=== PATIENT | female | born 1960 | race Caucasian/White ===

== ENCOUNTER 2017-06-28 12:42 | Inpatient (IN) | payer MEDICARE, MEDICAID ==
[2017-06-28 13:47] LABS: ABS Basophils 0.2 10^3/ul (0-0.2); ABS Eosinophils 0.1 10^3/ul (0-0.6); ABS Lymphocytes 1.9 10^3/ul (1.0-4.8); ABS Neutrophils 12.7 10^3/ul (1.5-7.7); ABS Nucleated RBC 0 10^3/ul; Eosinophil % 0.5 % (0-6); Hematocrit 33 % (35-47); Hemoglobin 10.6 g/dl (12.0-16.0); Lymphocyte % 11.9 % (25-47); Mean Corpuscular HGB Conc 33 g/dl (31-36); Mean Corpuscular Hemoglobin 25 pg (27-31); Mean Corpuscular Volume 78 fL (80-97); Mean Platelet Volume 6.8 um3 (7.4-10.4); Nucleated Red Blood Cells % 0; Platelet Count 591 10^3/ul (150-450); Red Blood Count 4.18 10^6/ul (4.0-5.4); Red Cell Distribution Width 16 % (10.5-15); White Blood Count 15.9 10^3/ul (3.5-10.8)
[2017-06-28 13:57] LABS: INR 1.02 (0.77-1.02)
[2017-06-28 14:09] LABS: EGFR Non-African American 68.3 (>60)
[2017-06-28] MEDS ORDERED: Pantoprazole IV* 40 MG IV ONE (14:28)
--- NOTE | 2017-06-28 14:30 | RAD ---
INDICATION: Intermittent low-grade fever. Vomiting since last night. History of bilateral mastectomy. Former tobacco use. Question COPD. COMPARISON: August 05, [address] TECHNIQUE: Dual energy PA and routine lateral views of the chest were obtained. REPORT: Elevated lung volumes and rarefaction of the interstitial markings. RIGHT suprahilar opacity with suggestion of air bronchograms measuring up to 3.0 x 3.2 cm which may represent a round pneumonia or neoplastic lesion. Negative for pleural effusion or pneumothorax. Negative for cardiomegaly. Unremarkable central pulmonary vasculature. Negative for free air beneath the diaphragm. RIGHT axillary surgical clips. Healed fracture of the RIGHT eighth rib laterally. Negative for suspicious osseous lesions. IMPRESSION: 1. RIGHT suprahilar opacity with suggestion of air bronchograms measuring up to 3.0 x 3.2 cm which may represent a round pneumonia or neoplastic lesion. Correlate with clinical assessment and consider either contrast-enhanced CT of the chest at this time for further characterization or following therapy for pneumonia to assess for resolution. 2. Stigmata of chronic obstructive lung disease and emphysema.
[2017-06-28] MEDS ORDERED: cefTRIAXone(*) 1 GM in NS 0.9% 50 ML* 50 ML IVPB ONE (14:42)
[2017-06-28] MEDS ORDERED: Azithromycin IV(*) 500 MG in NS 0.9% 250 ML* 250 ML IVPB ONE (14:42)
[2017-06-28] MEDS ORDERED: Iohexol 350* (CONTRAST) 500 ML MDV IV ONE (14:50)
[2017-06-28] MEDS ORDERED: Pantoprazole IV* 80 MG in NS 0.9% 250 ML* 250 ML IV SCH (15:00)
[2017-06-28] MEDS ORDERED: Albuterol/Ipratropium NEB.SOL* Albuterol 2.5 MG/Ipratropium 0.5 MG 3 ML INH PRN (15:01)
[2017-06-28] MEDS ORDERED: Albuterol HFA INHALER* 8 gm MDI INH PRN (15:05)
[2017-06-28] MEDS ORDERED: NS 0.9% 1000 ML* 1,000 ML IV SCH (15:15)
--- NOTE | 2017-06-28 15:52 | RAD ---
INDICATION: RIGHT lung mass. Hemoptysis. History of breast cancer with double mastectomy. COMPARISON: Chest radiograph of the same date. TECHNIQUE: Multidetector CT images were obtained from the lung apices to the upper abdomen with 61 mL Omnipaque 350 IV contrast. Pulmonary angiogram protocol. Multiplanar reformation including with maximum intensity projection. REPORT: 3.3 x 2.6 cm RIGHT suprahilar RIGHT upper lobe mass encases the RIGHT upper lobe pulmonary arteries, veins, and airways with significant resulting RIGHT upper lobe airway stenosis airway. The mass extends into the RIGHT hilum and mediastinum with resulting approximate 70% compression of the RIGHT mainstem bronchus and bronchus intermedius. Mild postobstructive pneumonitis or patchy direct tumor extension peripheral to the dominant mass limited to the RIGHT upper lobe. The LEFT lung is clear. Negative for pleural effusions. Negative for pneumothorax. 2.3 cm short axis RIGHT paratracheal lymph node. 3.0 cm short axis subcarinal lymph node. 1.3 cm short axis RIGHT hilar lymph nodes. Negative for cardiomegaly. Small pericardial effusion with nodular contour anteriorly suspicious for potential inflammatory or malignant effusion. No filling defects are identified from the main to the subsegmental pulmonary arteries to indicate presence of a pulmonary embolism. Unremarkable Limited images through the upper abdomen. Post bilateral mastectomy. RIGHT axillary surgical clips noted. Negative for suspicious thoracic osseous lesions. IMPRESSION: 1. RIGHT upper lobe mass extending to the hilum and mediastinum as described. Consider primary bronchogenic carcinoma as well as metastasis given history of breast cancer. 2. Mediastinal and RIGHT hilar lymphadenopathy. 3. Small pericardial effusion with nodular contour anteriorly suspicious for potential inflammatory or malignant effusion. 4. Negative for pulmonary embolism.
[2017-06-28] MEDS ORDERED: fentaNYL* 50 MCG/ML 2 ML VIAL (100 MCG VIAL) ONE (16:09)
[2017-06-28] MEDS ORDERED: Midazolam* 1 MG/ML 10 ML VIAL (10 MG) ONE (16:09)
[2017-06-28] MEDS ORDERED: Pantoprazole IV* 80 MG in NS 0.9% 250 ML* 250 ML IVPB SCH (16:30)
[2017-06-28] MEDS ORDERED: Azithromycin IV(*) 500 MG in D5W 250 ML BAG* 250 ML IVPB SCH (17:00)
[2017-06-28] MEDS: Azithromycin IV(*) 500 MG in NS 0.9% 250 ML* 250 ML IVPB SCH (17:10)
--- NOTE | 2017-06-28 17:34 | ED ---
Meka Shin Elizabeth, scribed for Ezio Marr MD on 06/28/17 at 1300 . Abdominal Pain/Female - HPI Summary HPI Summary: This patient is a 56 year old F presenting to [facility] with a chief complaint of abd pain since this morning. Symptoms aggravated by nothing. Symptoms alleviated by nothing. Patient reports sinus congestion, shortness of breath on exertion, intermittent fevers, weight loss, cough, hematemesis with bright red blood clots, a feeling like something is stuck in my throat this morning. The patient notes that the symptoms are worse in the morning. Patient denies hx of stomach ulcers. The patient has previously been diagnosed with COPD and has been prescribed albuterol and Flovent. The patient denies taking these medications because she says they give her headaches. The patient reports taking Ibuprofen and ASA regularly. - History of Current Complaint Stated Complaint: VOMITING BLOOD Time Seen by Provider: 06/28/17 12:48 Hx Obtained From: Patient Onset/Duration: Sudden Onset, Still Present Severity Initially: Mild Severity Currently: Mild Location: Epigastric Radiates: No Aggravating Factor(s): Nothing Alleviating Factor(s): Nothing Associated Signs and Symptoms: Positive: Fever - intermittent, Cough, Vomiting - hematemesis, Other: - weight loss, shortness of breath on exertion Allergies/Adverse Reactions: Allergies Allergy/AdvReac Type Severity Reaction Status Date / Time No Known Allergies Allergy Verified 06/28/17 14:48 Home Medications: Home Medications ALPRAZolam TAB* [Xanax TAB*] 1 mg PO TID PRN 06/28/17 [History Confirmed ] Albuterol HFA INHALER* [Ventolin HFA Inhaler*] 1 - 2 puff INH Q4H PRN 06/28/17 [ History Confirmed 06/28/17] Cetirizine* [ZyrTEC 10 MG TAB*] 10 mg PO DAILY 06/28/17 [History Confirmed 06/28] Cholecalciferol TAB* [Vitamin D TAB*] 5,000 unit PO DAILY 06/28/17 [History Confirmed 06/28/17] Escitalopram (NF) [Lexapro 20 mg (NF)] 20 mg PO DAILY 06/28/17 [History Confirmed 06/28/17] Fluticasone DISKUS 100 MCG(NF) [Flovent Diskus 100 MCG(NF)] 1 puff INH BID 06/28 [History Confirmed 06/28/17] Fluticasone NASAL SPRAY 50MCG* [Flonase NASAL SPRAY 50MCG*] 2 spray BOTH NARES DAILY 06/28/17 [History Confirmed 06/28/17] Ibuprofen TAB* [Advil TAB*] 600 mg PO BID PRN 06/28/17 [History Confirmed ] Omeprazole CAP* [Prilosec CAP* 20 MG] 40 mg PO DAILY 06/28/17 [History Confirmed 06/28/17] Umeclidin/Vilant 62.5 MDI(NF) [ANORO 62.5/25 Ellipta DEVICE (NF)] 1 inh INH DAILY 06/28/17 [History Confirmed 06/28/17] Vitamin B Complex TAB* [B Complex-50*] 1 tab PO DAILY 06/28/17 [History Confirmed 06/28/17] PMH/Surg Hx/FS Hx/Imm Hx Endocrine/Hematology History: Denies: Hx Diabetes Respiratory History: Reports: Hx Chronic Obstructive Pulmonary Disease (COPD) Opthamlomology History: Denies: Hx Legally Blind EENT History: Denies: Hx Deafness - Cancer History Cancer Type, Location and Year: Breast cancer, 2004 - Surgical History Surgery Procedure, Year, and Place: bilateral mastectomy, 2004 - Family History Known Family History: Negative: Diabetes Review of Systems Negative: Fever, Chills Negative: Erythema ENT: Other - sinus congestion Negative: Sore Throat Negative: Chest Pain Positive: Shortness Of Breath, Cough Positive: Abdominal Pain - hematemesis with bright red blood and clots, Vomiting - he. Negative: Nausea Negative: dysuria, hematuria Negative: Myalgia, Edema Negative: Rash Neurological: Other - NEGATIVE DIZZINESS All Other Systems Reviewed And Are Negative: Yes Physical Exam - Summary Physical Exam Summary: Constitutional: Well-developed, thin appearing, Alert. (-) Distressed Skin: Warm, Dry HENT: Normocephalic; Atraumatic Eyes: Conjunctiva normal Neck: Musculoskeletal ROM normal neck. (-) JVD, (-) Stridor, (-) Tracheal deviation Cardio: Rhythm regular, rate normal, Heart sounds normal; Intact distal pulses; The pedal pulses are 2+ and symmetric. Radial pulses are 2+ and symmetric. (-) Murmur Pulmonary/Chest wall: Effort normal. (-) Respiratory distress, (-) Wheezes, (-) Rales Abd: Soft, Mild epigastric tenderness, (-) Distension, (-) Guarding, (-) Rebound Musculoskeletal: (-) Edema Lymph: (-) Cervical adenopathy Neuro: Alert, Oriented x3 Psych: Mood and affect Normal Triage Information Reviewed: Yes Vital Signs On Initial Exam: Initial Vitals Temp 37.2 C 06/28/17 12:45 Vital Signs Reviewed: Yes Diagnostics - Vital Signs Vital Signs Temp Pulse Resp BP Pulse Ox 06/28/17 13:44 96 151/98 97 06/28/17 13:14 98 136/86 98 06/28/17 13:12 36.9 C 104 20 138/83 98 06/28/17 12:45 37.2 C - Laboratory Lab Results: Lab Results 06/28/17 06/28/17 06/28/17 Range/Units 13:37 13:37 13:37 WBC 15.9 H (3.5-10.8) 10^3/ul RBC 4.18 (4.0-5.4) 10^6/ul Hgb 10.6 L (12.0-16.0) g/dl Hct 33 L (35-47) % MCV 78 L (80-97) fL MCH 25 L (27-31) pg MCHC 33 (31-36) g/dl RDW 16 H (10.5-15) % Plt Count 591 H (150-450) 10^3/ul MPV 6.8 L (7.4-10.4) um3 Neut % (Auto) 80.3 (38-83) % Lymph % (Auto) 11.9 L (25-47) % [place] % (Auto) 6.3 (0-7) % Eos % (Auto) 0.5 (0-6) % Baso % (Auto) 1.0 (0-2) % Absolute Neuts (auto) 12.7 H (1.5-7.7) 10^3/ul Absolute Lymphs (auto) 1.9 (1.0-4.8) 10^3/ul Absolute Monos (auto) 1.0 H (0-0.8) 10^3/ul Absolute Eos (auto) 0.1 (0-0.6) 10^3/ul Absolute Basos (auto) 0.2 (0-0.2) 10^3/ul Absolute Nucleated RBC 0 10^3/ul Nucleated RBC % 0 INR (Anticoag Therapy) 1.02 (0.77-1.02) APTT 31.6 (26.0-36.3) seconds Sodium 134 L (139-145) mmol/L Potassium 3.9 (3.5-5.0) mmol/L Chloride 100 L (101-111) mmol/L Carbon Dioxide 26 (22-32) mmol/L Anion Gap 8 (2-11) mmol/L BUN 12 (6-24) mg/dL Creatinine 0.86 (0.51-0.95) mg/dL Est GFR ( Amer) 87.8 (>60) Est GFR (Non-Af Amer) 68.3 (>60) BUN/Creatinine Ratio 14.0 (8-20) Glucose 99 (70-100) mg/dL Calcium 10.0 (8.6-10.3) mg/dL Total Bilirubin 0.50 (0.2-1.0) mg/dL AST 18 (13-39) U/L ALT 28 (7-52) U/L Alkaline Phosphatase 352 H (34-104) U/L Total Protein 7.9 (6.4-8.9) g/dL Albumin 3.4 (3.2-5.2) g/dL Globulin 4.5 H (2-4) g/dL Albumin/Globulin Ratio 0.8 L (1-3) Blood Type Antibody Screen 06/28/17 Range/Units 13:37 WBC (3.5-10.8) 10^3/ul RBC (4.0-5.4) 10^6/ul Hgb (12.0-16.0) g/dl Hct (35-47) % MCV (80-97) fL MCH (27-31) pg MCHC (31-36) g/dl RDW (10.5-15) % Plt Count (150-450) 10^3/ul MPV (7.4-10.4) um3 Neut % (Auto) (38-83) % Lymph % (Auto) (25-47) % [place] % (Auto) (0-7) % Eos % (Auto) (0-6) % Baso % (Auto) (0-2) % Absolute Neuts (auto) (1.5-7.7) 10^3/ul Absolute Lymphs (auto) (1.0-4.8) 10^3/ul Absolute Monos (auto) (0-0.8) 10^3/ul Absolute Eos (auto) (0-0.6) 10^3/ul Absolute Basos (auto) (0-0.2) 10^3/ul Absolute Nucleated RBC 10^3/ul Nucleated RBC % INR (Anticoag Therapy) (0.77-1.02) APTT (26.0-36.3) seconds Sodium (139-145) mmol/L Potassium (3.5-5.0) mmol/L Chloride (101-111) mmol/L Carbon Dioxide (22-32) mmol/L Anion Gap (2-11) mmol/L BUN (6-24) mg/dL Creatinine (0.51-0.95) mg/dL Est GFR ( Amer) (>60) Est GFR (Non-Af Amer) (>60) BUN/Creatinine Ratio (8-20) Glucose (70-100) mg/dL Calcium (8.6-10.3) mg/dL Total Bilirubin (0.2-1.0) mg/dL AST (13-39) U/L ALT (7-52) U/L Alkaline Phosphatase (34-104) U/L Total Protein (6.4-8.9) g/dL Albumin (3.2-5.2) g/dL Globulin (2-4) g/dL Albumin/Globulin Ratio (1-3) Blood Type A Positive Antibody Screen Negative Result Diagrams: 06/28/17 13:37 06/28/17 13:37 Lab Statement: Any lab studies that have been ordered have been reviewed, and results considered in the medical decision making process. - Radiology CXR Xray Interpretation: Positive (See Comments) - IMPRESSION: 1. RIGHT suprahilar opacity with suggestion of air bronchograms measuring up to 3.0 x 3.2 cm which may represent a round pneumonia or neoplastic lesion. Correlate with clinical assessment and consider either contrast-enhanced CT of the chest at this time for further characterization or following therapy for pneumonia to assess for resolution. 2. Stigmata of chronic obstructive lung disease and emphysema. Dr. Marr has reviewed this report. Radiology Interpretation Completed By: Radiologist - EKG 13:07 Cardiac Rate: Tachycardia - at 101 BPM EKG Rhythm: Sinus Tachycardia EKG Interpretation: no STEMI Re-Evaluation - Re-Evaluation 1st re-eval Re-Evaluation Time: 14:39 Change: Unchanged Comment: Discussed course of treatment with patient. Abdominal Pain Fem Course/Dx - Course Course Of Treatment: An EKG reveals sinus tachycardia at 101 BPM and no STEMI. CXR reveals, per radiologist, 1. RIGHT suprahilar opacity with suggestion of air bronchograms measuring up to 3.0 x 3.2 cm which may represent a round pneumonia or neoplastic lesion. Correlate with clinical assessment and consider either contrast-enhanced CT of the chest at this time for further characterization or following therapy for pneumonia to assess for resolution. 2. Stigmata of chronic obstructive lung disease and emphysema. ED physician has reviewed this radiology reportand discussed the results with the radiologist. Test results with no significant abnormalities. In the ED course the patient was given Protonix, Rocephin, Zithromax. We discussed patient care with Dr. Kate , check writing machine operator, and she recommended performing an endoscopy and admitting as inpatient. The possibility for pulmonary etiology was relayed to Dr. Kate. She understands and still plans to perform the endoscopy. Patient will be admitted to [facility]. The patient is agreeable with this plan. - Diagnoses Provider Diagnoses: Hematemesis, Lung mass - Provider Notifications Discussed Care Of Patient With: Dr. Kate Time Discussed With Above Provider: 14:30 Instructed by Provider To: Other - At 14:[address] Kate, check writing machine operator, advises performing an endoscopy on the patient and admitting her to [facility]. At 14:[address] Kate and made her aware of the possibility of pulmonary etiology. She understands this and still plans to perform the endoscopy. Discharge - Sign-Out/Discharge Documenting (check all that apply): Discharge/Admit/Transfer - Discharge Plan Condition: Fair Disposition: ADMITTED TO [facility] - Billing Disposition and Condition Condition: FAIR Disposition: HOSP-[facility] The documentation as recorded by the Meka fuentes Elizabeth accurately reflects the service I personally performed and the decisions made by , Ezio Marr MD.
[2017-06-28] MEDS: Acetaminophen TAB* 325 MG PO PRN (21:45)
[2017-06-28 22:22] LABS: Hematocrit 30 % (35-47); Hemoglobin 9.8 g/dl (12.0-16.0)
--- NOTE | 2017-06-28 22:33 | HP ---
CC: DANELLE Samuels * HISTORY AND PHYSICAL: DATE OF ADMISSION: 06/28/17 PRIMARY CARE PROVIDER: The patient actually forgot the name, but the provider is from [facility] in [place], [place]. I believe the name is Carrie Kasper. CHIEF COMPLAINT: Vomiting blood. HISTORY OF PRESENT ILLNESS: Jordana Hurst is a 56-year-old female with history of COPD and breast cancer. The patient stated that for the past month and a half, she has been having coughing, and shortness of breath. She went to see her primary care provider and was prescribed "inhalers." She admitted that she was supposed to take Flovent and Anoro and she thinks that the inhalers causing her to have frontal headaches. She stated that she has been feeling sinus pressure from her headaches for the past several weeks. She has been having also "coughing spells." Today, she had another coughing spell at the end of which she vomited. She vomited clots of blood with vomitus and pieces of food in it. She stated that it was approximately 100 to 200 mL of total and she has never had vomited like that before. She denies coughing up blood once again when she vomited and was at the end of "a coughing spell." She has been having no fevers, but bifrontal headaches and sinus congestion for quite some time. Of note, she stopped her inhalers 2 days ago thinking that they are causing her to feel worse especially with headaches. She is going to be admitted with diagnosis of hematemesis versus hemoptysis. Her chest x-ray also showed questionable right lung infiltrate versus mass for which further evaluation with CT angiogram was going to be obtained. PAST MEDICAL HISTORY: 1. COPD. 2. History of anxiety and depression. 3. History of status post bilateral mastectomy for right-sided breast cancer which followed chemo and radiation 13 years ago. CURRENT MEDICATIONS: Include: 1. Ibuprofen 600 mg b.i.d. p.r.n. 2. Lexapro 20 mg daily. 3. Xanax 1 mg 3 times a day p.r.n. 4. Vitamin B complex 1 tablet daily. 5. Vitamin D 5000 units daily. 6. Zyrtec 10 mg daily. 7. Anoro Ellipta 62.5/25 one inhalation daily. 8. Omeprazole 40 mg daily. 9. Tikosyn nasal spray 50 mcg 2 sprays both nostrils daily. 10. Flovent Diskus 100 mcg 1 puff b.i.d. 11. Albuterol inhaler on a p.r.n. basis. ALLERGIES: The patient stated "TWILIGHT SEDATION" makes her feel "funny," and CODEINE makes her feel "sad." FAMILY HISTORY: Positive for mother with history of brain tumor, who in her 50s. SOCIAL HISTORY: The patient denies any alcohol or drug use. She has been a smoker for over 20-pack years and she quit 2 months ago. As her surrogate, she mentions Jennifer Burrows, her sister. REVIEW OF SYSTEMS: Please see history of present illness. All the remaining review of systems was completed and they were otherwise negative. PHYSICAL EXAMINATION GENERAL: The patient is a very pleasant 56-year-old female who is in no acute distress. Alert, awake and oriented x3, rather a poor historian. VITAL SIGNS: Blood pressure 151/98, heart rate of 96 and regular, respiratory rate 20, oxygen saturation 97% on room air, temperature is 99.0. HEENT: Head: Atraumatic, normocephalic. Eyes: Pupils are equal, reactive to light and accommodation. Oropharynx clear. Mucosa moist. NECK: Supple. No JVD. No bruits bilaterally. RESPIRATORY: Rhonchi at bilateral bases and right middle lung. CARDIOVASCULAR: Regular rate and rhythm. No murmur. ABDOMEN: Soft, nontender. Bowel sounds are present in all 4 quadrants. EXTREMITIES: There is no edema. Pulses are +2 bilaterally. No clubbing or cyanosis. NEURO EVALUATION: Speech is clear. Cranial nerves II through XII grossly intact. Motor strength is 5/5 bilaterally. SKIN: On evaluation of the skin, no ecchymotic areas or rashes noted. DIAGNOSTIC STUDIES/LAB DATA: Sodium of 138, potassium 3.9, chloride 100, carbon dioxide 26, BUN was 12, creatinine 0.86. Liver function tests were unremarkable apart from alkaline phosphatase of 352. White blood cell count of 15.9, hemoglobin of 10.6, hematocrit of 33, MCV of 78, platelets of 591. INR was 1.02, PTT of 31.6. Portable chest x-ray, impression: "Right suprahilar opacity with suggestion of air bronchograms measuring up to 3.2 cm, which may represent a round pneumonia or neoplastic lesion. Correlate with clinical assessment and consider a contrast enhanced CT of the chest at the time for further characterization following therapy for pneumonia to assess for resolution." The patient's EKG showed sinus tachycardia with heart rate of 101 beats per minute with no significant ST changes. ASSESSMENT AND PLAN: 1. Hemoptysis versus hematemesis. The patient stated that she has been having coughing spells for quite some time and today. The coughs had been nonproductive and today at the end of her coughing spells, she vomited blood mixed with gastric contents. At this point, it is difficult to distinguish if the patient in fact had hematemesis or hemoptysis. Either way, the patient was evaluated first by the gastroenterology department and the patient is going to have an EGD performed today. She is going to be placed on Protonix intravenously. She does have history of using ibuprofen for her headaches and in the past several weeks. 2. In regards to patient's right-sided lung nodule, I will order CT angiogram of the chest as the patient has been coughing, had been also short of breath, and had possible hemoptysis. For the time being, she is going to be treated empirically for pneumonia with ceftriaxone and azithromycin. She has leukocytosis also. Sputum cultures are going to be obtained. 3. The patient has microcytic anemia, which is likely due to hematemesis as mentioned above. For the time being, we will follow up with H and H tonight and then in the morning. This anemia is likely due to acute hemorrhage from hematemesis. 4. The patient's chronic obstructive pulmonary disease does not appear to be exacerbation. The patient is going to be placed on albuterol inhaler and DuoNeb. 5. For anxiety and depression, Lexapro and Xanax is going to be continued. 6. For DVT prophylaxis, the patient is going to be placed on sequential compression devices and anticoagulation is not going to be started due to her hematemesis. I will place the patient on SCDs. 7. The patient's code status is full and her surrogate is her sister as mentioned above. 8. The patient's alkaline phosphatase is significantly elevated. At this point , I am going to obtain alkaline phosphatase, isoenzyme to rule out possibility of bone isoenzyme being elevated. It does not appear that the patient has had complaint of any liver issues in the past. Unfortunately, I do not have her prior lab work in regards to LFTs. TIME SPENT: Approximately 70 minutes were spent on admission of this patient, more than half of the time was spent in [id number] with the patient during the interview and physical exam. [id number]/[facility] #: [id number] JEAN
--- NOTE | 2017-06-29 01:49 | CONS ---
AMENDED REPORT NOW INCLUDES DATE OF CONSULT - ESIGNED BEFORE ADJUSTMENT CC: Dr. Marr GASTROENTEROLOGY CONSULTATION: DATE OF CONSULT: 06/28/17 REFERRING PHYSICIAN: Dr. Marr. HISTORY OF PRESENT ILLNESS: Thank you for asking me to see Ms. Hurst. As you know, she is a 56-year-old female with a personal history of breast cancer and a history of COPD, who presented to the emergency room today after having an episode of hematemesis this morning, which she states was bright red blood, which filled half a glass. She also apparently had an episode of vomiting last night after soup and there were a few streaks of blood in that vomitus. The patient has had no further hematemesis since her arrival in the emergency room. Her hematocrit on admission is 33 with an MCV of 78. The patient did undergo a chest CT, which did reveal a mass in the right upper lobe encasing the right upper lobe pulmonary arteries, veins, and airways. The patient states this was clearly not hemoptysis. She had stopped all her COPD medications at home. Has no complaints of heartburn, dysphagia, or abdominal pain. She has had no melena. PAST MEDICAL HISTORY: Significant for breast cancer, COPD, and anxiety. MEDICATIONS: At home, include: 1. Xanax. 2. Lexapro. ALLERGIES: No known drug allergies. FAMILY HISTORY: Noncontributory. SOCIAL HISTORY: The patient lives at home. There is no alcohol abuse. REVIEW OF SYSTEMS: A 10-point review of systems is performed and is otherwise negative. PHYSICAL EXAM: Ms. Hurst is a 56-year-old female, in no acute distress. Temperature is 99, heart rate of 98, blood pressure 125/78, O2 sat on room air is 96%. HEENT Exam: There is no scleral icterus. Heart has regular rate and rhythm. Lungs have scattered wheezing throughout with decreased breath sounds in the right upper lobe area. Abdomen is soft. There is no tenderness. Bowel sounds are present. There is no mass. There is no distention. Skin is warm and dry. Neuro exam is grossly intact. Alert and oriented x3. PERTINENT LABORATORY STUDIES: As described above. INR of 1.02. Alkaline phosphatase is 352. AST, ALT, and bilirubin are normal. BUN of 12, creatinine of 0.8. IMPRESSION: Ms. Aris presents with hematemesis this morning. She did have an episode of vomiting last evening and then felt a globus sensation, which resulted in vomiting this morning. She denies any hemoptysis. She has been on aspirin and Excedrin for headaches. She did just undergo a CT scan, which revealed a significant mass in the right upper lobe. Differential diagnosis is hemoptysis secondary to this pulmonary mass versus upper gastrointestinal bleeding. RECOMMENDATIONS: Upper endoscopy will be performed today. The patient states she has been n.p.o. all day. Further recommendations based on the results of upper endoscopy. [id number]/[facility] #: [id number] [facility]
[2017-06-29] MEDS: Acetaminophen TAB* 325 MG PO PRN ×3 (03:24→17:46)
[2017-06-29] MEDS: Omeprazole CAP* 20 MG PO SCH (05:53)
[2017-06-29 06:22] LABS: ABS Basophils 0.1 10^3/ul (0-0.2); ABS Eosinophils 0.1 10^3/ul (0-0.6); ABS Lymphocytes 1.5 10^3/ul (1.0-4.8); ABS Monocytes 0.9 10^3/ul (0-0.8); ABS Neutrophils 13.6 10^3/ul (1.5-7.7); ABS Nucleated RBC 0 10^3/ul; Eosinophil % 0.6 % (0-6); Hematocrit 31 % (35-47); Hemoglobin 9.9 g/dl (12.0-16.0); Lymphocyte % 9.2 % (25-47); Mean Corpuscular HGB Conc 32 g/dl (31-36); Mean Corpuscular Hemoglobin 25 pg (27-31); Mean Corpuscular Volume 78 fL (80-97); Mean Platelet Volume 6.8 um3 (7.4-10.4); Nucleated Red Blood Cells % 0; Platelet Count 535 10^3/ul (150-450); Red Blood Count 3.94 10^6/ul (4.0-5.4); Red Cell Distribution Width 17 % (10.5-15); White Blood Count 16.2 10^3/ul (3.5-10.8)
[2017-06-29 06:40] LABS: EGFR Non-African American 81.2 (>60)
[2017-06-29] MEDS: Citalopram TAB* 40 MG PO SCH (07:15)
[2017-06-29] MEDS: Fluticasone NASAL SPRAY 50MCG* 16 gm SPRAY BTL BOTH NARES SCH (07:16)
[2017-06-29] MEDS: ALPRAZolam TAB* 0.5 MG PO PRN (10:07)
[2017-06-29] MEDS ORDERED: Buffered Lidocaine 0.9% SYRIN* 5 ML/SYR SYRINGE INTRADERM ONE (12:41)
--- NOTE | 2017-06-29 15:13 | PRO ---
CC: Dr. Marr GASTROENTEROLOGY PROCEDURE NOTE: DATE OF PROCEDURE: 06/28/17 REFERRING PHYSICIAN: Dr. Marr. PROCEDURE: EGD. PREOPERATIVE DIAGNOSES: Hematemesis in this 56-year-old female with a personal history of breast can cer and a CT which has just revealed a large mass in the right upper lobe. The patient has been on h igh doses of aspirin and Excedrin for headaches, rule out upper GI bleed. POSTOPERATIVE DIAGNOSES: 1. Normal esophagus. 2. Normal stomach throughout; however, there is some nonvisualization due to retained food. Photogr aphs were obtained. There was no old or new blood present within the stomach. 3. Mild duodenitis of the bulb without evidence of ulceration. No blood is present. PROCEDURE MEDICATIONS: 1. Versed 6 mg IV. 2. Fentanyl 100 mcg IV. INSTRUMENT: GF-190 Olympus high-definition gastroscope. DESCRIPTION OF PROCEDURE: Informed consent was obtained prior to performing this procedure. The ins trument was introduced into the mouth and passed through cervical esophagus under direct visualizatio n. The instrument was then advanced down the esophagus. The esophagus was normal. The scope was th en passed into the gastric cardia, fundus, body, and antrum. There was a fair amount of retained andrea d within the stomach, although with irrigation and suctioning, no obvious pathology was noted. No ul cers. There was no old or new blood present. The scope was then passed through the pylorus into the duodenal bulb and descending duodenum. There was mild duodenitis of the bulb. No old or new blood was present. The instrument was withdrawn from the patient. The patient tolerated the procedure wel l and there were no complications. RECOMMENDATIONS: It appears this is not an upper GI bleed and most likely vomiting of blood from pul monary bleeding. She will need to undergo pulmonary evaluation and consultation. [id number]/[facility] #: [id number]
[2017-06-29] MEDS: cefTRIAXone(*) 1 GM in NS 0.9% 50 ML* 50 ML IVPB SCH (15:23)
[2017-06-29] MEDS ORDERED: Ondansetron INJ* 2 MG/ML VIAL IV PRN (15:28)
[2017-06-29] MEDS: Azithromycin IV(*) 500 MG in NS 0.9% 250 ML* 250 ML IVPB SCH (15:53)
[2017-06-29] MEDS ORDERED: SUMAtriptan TAB* 50 MG PO ONE (18:40)
--- NOTE | 2017-06-29 18:42 | PN ---
Subjective Date of Service: 06/29/17 Interval History: complaint of CHRISTENSEN 09/15, with poor to nonexistent sleep. anxious about diagnosis. nausea but no vomiting. no hemoptysis or hematemesis. Attests to night sweats 1-2 nights a week for last few months, drenching, new. Telling me that she has not been losing weight. Denies chest pain, SOB. EGD w/o e/o bleeding source. Objective Active Medications: Acetaminophen (Tylenol Tab*) 650 mg PO Q4H PRN PRN Reason: FEVER/PAIN Last Admin: 06/29/17 17:46 Dose: 650 mg Albuterol (Ventolin Hfa Inhaler*) 2 puff INH Q4H PRN PRN Reason: SOB/WHEEZING Albuterol/Ipratropium (Duoneb (Albuterol 2.5 Mg/Ipratropium 0.5 Mg)) 1 neb INH [id number] AWAKE PRN PRN Reason: sob/wheexing Alprazolam (Xanax Tab*) 1 mg PO TID PRN PRN Reason: ANXIETY Last Admin: 06/29/17 10:07 Dose: 1 mg Citalopram Hydrobromide (Celexa Tab*) 40 mg PO DAILY [facility] Last Admin: 06/29/17 07:15 Dose: 40 mg Fluticasone Propionate (Flonase Nasal [place] 50mcg*) 2 spray BOTH NARES DAILY [facility] Last Admin: 06/29/17 07:16 Dose: 2 spray Ceftriaxone Sodium 1 gm/ (Sodium Chloride) 50 mls @ 200 mls/hr IVPB Q24H [facility] Last Admin: 06/29/17 15:23 Dose: 200 mls/hr Azithromycin 500 mg/ Sodium (Chloride) 250 mls @ 250 mls/hr IVPB Q24H [facility] Last Admin: 06/29/17 15:53 Dose: 250 mls/hr Lactated Ringer's (Lactated Ringers 1000 Ml Bag*) 1,000 mls @ 125 mls/hr IV PER RATE [facility] Omeprazole (Prilosec Cap*) 20 mg PO 0600 [facility] Last Admin: 06/29/17 05:53 Dose: 20 mg Ondansetron HCl (Zofran 40 Mg Vial*) 4 mg IV Q6H PRN PRN Reason: NAUSEA Vital Signs - 8 hr 06/29/17 06/29/17 06/29/17 11:08 13:19 14:58 Temperature 97.8 F 99.2 F Pulse Rate 94 104 Respiratory 18 20 18 Rate Blood Pressure 121/80 127/67 (mmHg) O2 Sat by Pulse 98 98 Oximetry 06/29/17 15:03 Temperature Pulse Rate 88 Respiratory Rate Blood Pressure (mmHg) O2 Sat by Pulse Oximetry Oxygen Devices in Use Now: None Appearance: NAD, anxious Eyes: No Scleral Icterus, PERRLA Ears/Nose/Mouth/Throat: NL Teeth, Lips, Gums, Mucous Membranes Moist Neck: NL Appearance and Movements; NL JVP Respiratory: - - diffuse rhonchi. no wheezing or rales. Cardiovascular: NL Sounds; No Murmurs; No JVD, RRR Abdominal: NL Sounds; No Tenderness; No Distention, No Hepatosplenomegaly Extremities: No Edema, No Clubbing, Cyanosis Skin: No Rash or Ulcers Neurological: Alert and Oriented x 3, NL Sensation, NL Muscle Strength and Tone Nutrition: Taking PO's Result Diagrams: 06/29/17 06:11 06/29/17 06:11 Additional Lab and Data: Laboratory Results - last 24 hr 06/29/17 06/29/17 06:11 06:11 WBC 16.2 H RBC 3.94 L Hgb 9.9 L Hct 31 L MCV 78 L MCH 25 L MCHC 32 RDW 17 H Plt Count 535 H D MPV 6.8 L Neut % (Auto) 84.1 H Lymph % (Auto) 9.2 L [place] % (Auto) 5.5 Eos % (Auto) 0.6 Baso % (Auto) 0.6 Absolute Neuts (auto) 13.6 H Absolute Lymphs (auto) 1.5 Absolute Monos (auto) 0.9 H Absolute Eos (auto) 0.1 Absolute Basos (auto) 0.1 Absolute Nucleated RBC 0 Nucleated RBC % 0 Sodium 138 L Potassium 4.1 Chloride 106 Carbon Dioxide 24 Anion Gap 8 BUN 10 Creatinine 0.74 Est GFR ( Amer) 104.4 Est GFR (Non-Af Amer) 81.2 BUN/Creatinine Ratio 13.5 Glucose 98 Calcium 9.3 Total Bilirubin 0.40 Direct Bilirubin 0.30 H Indirect Bilirubin 0.1 L AST 13 ALT 23 Alkaline Phosphatase 349 H Total Protein 7.1 Albumin 3.1 L Globulin 4.0 Albumin/Globulin Ratio 0.8 L Assess/Plan/Problems-Billing Assessment: 56 yo female PMH COPD, former smoker 20 pack years, anxiety, depression, breast cancer s/p b/l mastectomy, chemoradiation 13 years ago p/w hematemesis. EGD negative. CT chest concerning for possible maligancy (probably bronchogenic carcinoma). Planned lung biopsy with Dr. Sequeira 06/30. - Patient Problems (1) Hematemesis with nausea Current Visit: Yes Status: Acute Code(s): K92.0 - HEMATEMESIS SNOMED Code( s): 0804243 Comment: s/p EGD w/o e/o of bleeding source. Suspect lung source 2/2 bronchogenic malignancy. No PE on CTA. has stopped. hgb 9.9, stable. get ESR in AM. CBC daily zofran prn. appreciate pulmonology and GI recs. planned bronch w/ lung biopsy 06/30. (2) COPD (chronic obstructive pulmonary disease) Current Visit: Yes Status: Acute Code(s): J44.9 - CHRONIC OBSTRUCTIVE PULMONARY DISEASE, UNSPECIFIED SNOMED Code(s): 38071592 Comment: continue inhalers, no bronchospastic has been coughing on cftx/azithormycin given luekocytosis, possible post obstructive pna. (3) Anxiety and depression Current Visit: Yes Status: Acute Code(s): F41.9 - ANXIETY DISORDER, UNSPECIFIED; F32.9 - MAJOR DEPRESSIVE DISORDER, SINGLE EPISODE, UNSPECIFIED SNOMED Code(s): 44674183 Comment: citalopram 40mg po (4) Headache Current Visit: Yes Status: Acute Code(s): R51 - HEADACHE SNOMED Code(s): 39967950 Comment: tylenol prn add sumitriptan given clinical context need to rule out brain mets. plan MRI brain w/wo tomorrow (given last angiogram dye load). (5) Leukocytosis Current Visit: Yes Status: Acute Code(s): D72.829 - ELEVATED WHITE BLOOD CELL COUNT, UNSPECIFIED SNOMED Code(s): 971931995 Comment: f/u cultures. on ceftriaxone, azithromycin adding procalcitonin. Status and Disposition: medicine. changing to inpatient as needs urgent bronch/biopsy.
--- NOTE | 2017-06-29 19:52 | CONS ---
PULMONARY CONSULTATION REPORT: DATE OF CONSULT: 06/29/17. CONSULTATION REQUESTED BY: Dr. Cally Chandler. REASON FOR CONSULT: Hemoptysis. HISTORY OF PRESENT ILLNESS: The patient is a 56-year-old female, former smoker with history of COPD, history of breast cancer, status post bilateral mastectomies and chemoradiation 13 years ago. The patient presents for evaluation of coughing up blood for one day. The patient reports having chronic cough for the past 2 to 3 months. The patient reports that she was recently started on medications for COPD, was started on Flovent and Anoro and has been having frontal headaches and migraine headaches since that time. The patient also has been feeling poorly since and attributed the cough also to the new medications. Reports that cough is mostly in the morning and usually improves through the day. Has had another coughing spell one day prior to the admission and vomited blood in the back of throat. The patient reports having approximately 100 to 200 mL of total upper GI contents. She just had another episode of vomiting at bedside. She did not have any blood in the vomitus and it was clear. The patient also reports 20-pound weight loss in the past 6 months. The patient underwent upper endoscopy for evaluation of hematemesis and no etiology was delineated as per patient. Further evaluation included chest x- ray and CT scan of the chest. I have personally reviewed chest x-ray and CT scan of the chest. The patient was noted to have suprahilar opacity on the right side with air bronchograms in the right lung. Evidence of hyperinflation was also noted. CTA was also personally reviewed by me - the patient noted to have 3 cm right suprahilar mass in the right upper lobe close to the midline. The patient also with narrowing of right mainstem bronchus and right intermediate bronchus. The patient also with significant mediastinal and hilar adenopathy. The patient with significantly enlarged right paratracheal, subcarinal and right hilar nodes. No pleural effusion was noted. No other suspicious bone lesions were noted. PAST MEDICAL HISTORY: 1. COPD. 2. Anxiety, depression. 3. Breast cancer, status post bilateral mastectomy and chemoradiation. MEDICATIONS: 1. Ibuprofen. 2. Lexapro. 3. Xanax. 4. Vitamin B. 5. Vitamin D. 6. Zyrtec. 7. Anoro. 8. Omeprazole. 9. Tikosyn. 10. Flovent. 11. Albuterol. ALLERGIES: CODEINE. FAMILY HISTORY: A brain tumor in mother, who in 50s. SOCIAL HISTORY: Denies alcohol or drug abuse, 20-gslr-kdgt smoking history, quit in February. REVIEW OF SYSTEMS: All 14 systems reviewed as per HPI. PHYSICAL EXAM: Anxious-appearing female, in no apparent distress. Vital Signs : Temperature 97.8, pulse 96 beats per minute, respiratory rate 20 per minute, O2 sat 98% on room air. Blood pressure 141/70. HEENT: Pupils are equal, reactive to light. Mucous membranes moist. Lungs: Good air entry bilaterally. Distant breath sounds. Cardiovascular: S1, S2 present. Regular. Abdomen: Soft, nontender, nondistended. Bowel sounds present. Extremities: Normal range of motion, no cyanosis or bruises. Lymphatic: No palpable cervical or supraclavicular adenopathy. Neuro: No focal deficits. DIAGNOSTIC STUDIES/LAB DATA: WBC count 16.2, hemoglobin 9.9, hematocrit 31, platelet count 535. Sodium 138, potassium 4.1, chloride 106, bicarb 24, BUN 10 , creatinine 0.74. Elevated LFTs with alk phos 349, total protein 7.1, albumin 3.1, globulin 4.0, and albumin 0.8. Chest x-ray and CT of the chest as described above in HPI. EKG showed sinus tachycardia with no ST-T wave abnormalities. IMPRESSION/RECOMMENDATIONS: 56-year-old female, former smoker, also with history of breast cancer, admitted with 2 episodes of hemoptysis one day prior, no further episodes since admission with CT chest concerning for malignancy. CT chest shows right upper lobe mass with extension into the mediastinum and extrinsic compression and possible endobronchial involvement of right mainstem and intermediate bronchus. The patient also with significant mediastinal and right hilar retinopathy concerning for malignancy. Underwent upper endoscopy yesterday, results pending. The patient with no further episodes of hemoptysis. Will need bronchoscopy and endobronchial ultrasound-guided fine needle aspiration for diagnosis of lung mass. Patient is hemodynamically stable at this time and in no apparent distress. Will need procedure on urgent basis. Procedure was discussed in detail with the patient. Associated risks and benefits were thoroughly explained. The patient is agreeable for the procedure. Further recommendations pending biopsy results. [id number]/[facility] #: [id number] [facility]ENTERWilly
[2017-06-30] MEDS ORDERED: SUMAtriptan TAB* 50 MG PO ONE (01:27)
[2017-06-30 05:52] LABS: ABS Basophils 0.1 10^3/ul (0-0.2); ABS Eosinophils 0.1 10^3/ul (0-0.6); ABS Lymphocytes 1.9 10^3/ul (1.0-4.8); ABS Monocytes 0.8 10^3/ul (0-0.8); ABS Neutrophils 14.9 10^3/ul (1.5-7.7); ABS Nucleated RBC 0 10^3/ul; Eosinophil % 0.5 % (0-6); Hematocrit 33 % (35-47); Hemoglobin 10.7 g/dl (12.0-16.0); Lymphocyte % 10.8 % (25-47); Mean Corpuscular HGB Conc 33 g/dl (31-36); Mean Corpuscular Hemoglobin 25 pg (27-31); Mean Corpuscular Volume 78 fL (80-97); Mean Platelet Volume 6.9 um3 (7.4-10.4); Nucleated Red Blood Cells % 0; Platelet Count 607 10^3/ul (150-450); Red Blood Count 4.25 10^6/ul (4.0-5.4); Red Cell Distribution Width 16 % (10.5-15); White Blood Count 17.8 10^3/ul (3.5-10.8)
[2017-06-30] MEDS: Omeprazole CAP* 20 MG PO SCH (06:50)
[2017-06-30] MEDS: Fluticasone NASAL SPRAY 50MCG* 16 gm SPRAY BTL BOTH NARES SCH (08:53)
[2017-06-30] MEDS: Citalopram TAB* 40 MG PO SCH ×2 (08:54→11:58)
[2017-06-30] MEDS: Ondansetron 40 MG VIAL* 2 MG/ML 20 ML VIAL IV PRN ×2 (08:57→19:21)
[2017-06-30] MEDS: ALPRAZolam TAB* 0.5 MG PO PRN ×2 (11:58→19:28)
[2017-06-30] MEDS ORDERED: DiMENhydriNATE IV* 50 MG/ML VIAL ONE (13:39)
--- NOTE | 2017-06-30 14:12 | PN ---
Progress Note - Progress Note Date of Service: 06/30/17 - Pulm f/u note Note: Pt seen and examined at bedside. Pt reports anxiety, dizziness. Denies any episodes of hemoptysis, significant cough or sputum production. Active Medications Generic Name Dose Route Start Last Admin Trade Name Freq PRN Reason Stop Dose Admin Acetaminophen 650 mg 06/28/17 15:01 06/29/17 17:46 Tylenol Tab* PO 650 mg Q4H PRN Administration FEVER/PAIN Albuterol 2 puff 06/28/17 15:05 Ventolin Hfa Inhaler* INH Q4H PRN SOB/WHEEZING Albuterol/Ipratropium 1 neb 06/28/17 15:01 Duoneb (Albuterol 2.5 Mg/Ipratropium 0.5 Mg) INH [id number] AWAKE PRN sob/wheexing Alprazolam 1 mg 06/28/17 15:05 06/30/17 11:58 Xanax Tab* PO 1 mg TID PRN Administration ANXIETY Citalopram Hydrobromide 40 mg 06/29/17 09:00 06/30/17 11:58 Celexa Tab* PO 40 mg DAILY [facility] Administration Fluticasone Propionate 2 spray 06/29/17 09:00 06/30/17 08:53 Flonase Nasal [place] 50mcg* BOTH NARES 2 spray DAILY [facility] Administration Ceftriaxone Sodium 1 gm/ 50 mls @ 200 mls/hr 06/29/17 15:00 06/29/17 15:23 Sodium Chloride IVPB 200 mls/hr Q24H [facility] Administration Azithromycin 500 mg/ Sodium 250 mls @ 250 mls/hr 06/28/17 17:00 06/29/17 15: 53 Chloride IVPB 250 mls/hr Q24H [facility] Administration Lactated Ringer's 1,000 mls @ 125 mls/hr 06/30/17 06:00 06/30/17 06:28 Lactated Ringers 1000 Ml Bag* IV 125 mls/hr PER RATE [facility] Administration Omeprazole 20 mg 06/29/17 06:00 06/30/17 06:50 Prilosec Cap* PO Not Given 0600 [facility] Ondansetron HCl 4 mg 06/29/17 15:31 06/30/17 08:57 Zofran 40 Mg Vial* IV 4 mg Q6H PRN Administration NAUSEA Vital Signs Temp Pulse Resp BP Pulse Ox 97.8 F 104 16 148/84 99 06/30/17 11:12 06/30/17 11:12 06/30/17 11:58 06/30/17 11:12 06/30/17 11:12 O/E: Pt in NAD HEENT: PERRLA, No JVD Lungs: Clear to auscultation, no wheeze CVS: S1, S2+, regular Abd: Soft, BS+ Ext: Normal ROM Neuro: No focal defecits Skin: No rash Laboratory Results - last 24 hr 06/28/17 06/30/17 06/30/17 13:33 05:21 05:21 WBC 17.8 H RBC 4.25 Hgb 10.7 L Hct 33 L MCV 78 L MCH 25 L MCHC 33 RDW 16 H Plt Count 607 H D MPV 6.9 L Neut % (Auto) 83.7 H Lymph % (Auto) 10.8 L [place] % (Auto) 4.7 Eos % (Auto) 0.5 Baso % (Auto) 0.3 Absolute Neuts (auto) 14.9 H Absolute Lymphs (auto) 1.9 Absolute Monos (auto) 0.8 Absolute Eos (auto) 0.1 Absolute Basos (auto) 0.1 Absolute Nucleated RBC 0 Nucleated RBC % 0 ESR 114 H POC Glucose (mg/dL) Alkaline Phosphatase 414 H Alk Phos Iso-Intestine 0.0 Alk Phos Iso-Intestin % 0.0 Alk Phos Iso-Bone 29.8 Alk Phos Iso-Bone % 7.2 L Alk Phos Iso-Liver 87.4 H Alk Phos Iso-Liver % 21.1 H Alk Phos Iso-Placenta Notpresent Procalcitonin < 0.1 06/30/17 06:31 WBC RBC Hgb Hct MCV MCH MCHC RDW Plt Count MPV Neut % (Auto) Lymph % (Auto) [place] % (Auto) Eos % (Auto) Baso % (Auto) Absolute Neuts (auto) Absolute Lymphs (auto) Absolute Monos (auto) Absolute Eos (auto) Absolute Basos (auto) Absolute Nucleated RBC Nucleated RBC % ESR POC Glucose (mg/dL) 98 Alkaline Phosphatase Alk Phos Iso-Intestine Alk Phos Iso-Intestin % Alk Phos Iso-Bone Alk Phos Iso-Bone % Alk Phos Iso-Liver Alk Phos Iso-Liver % Alk Phos Iso-Placenta Procalcitonin I/R: 56 y o f with h/o breast cancer s/p sx and chemoradiation a/w hemopsysis, CT chest showed suprahilar mass, with narrowing of Rt main stem and intermedius broncus and mediastinal and hilar adenopathy Findings concerning for malignancy Scheduled pt for bronchoscopy/EBUS today Procedure was discussed in detail, associated risks and benefits were thoroughly explained Pt agreeable for procedure Not requiring O2 Pt to be d/katie home tomorrow Will f/u results
[2017-06-30] MEDS ORDERED: fentaNYL* 50 MCG/ML 2 ML VIAL (100 MCG VIAL) ONE (14:16)
[2017-06-30] MEDS ORDERED: Succinylcholine* 20 MG/ML 10 ML VIAL ONE (14:46)
[2017-06-30] MEDS ORDERED: Propofol* 10 MG/ML 20 ML BTL IV PUSH ONE (14:46)
[2017-06-30] MEDS ORDERED: Lidocaine 2% PF * 5 ML VIAL ONE (14:47)
[2017-06-30] MEDS ORDERED: diPHENhydraMINE IV* 50 MG/ML 1 ml VIAL (BENADRYL) IV PRN (14:50)
[2017-06-30] MEDS ORDERED: Naloxone* 0.4 MG/ML 1 ML VIAL IV PRN (14:50)
[2017-06-30] MEDS ORDERED: EPHEDrine (Pressors)* 50 MG/ML VIAL ONE (15:22)
--- NOTE | 2017-06-30 16:25 | PN ---
Subjective Date of Service: 06/30/17 Interval History: Pt vomited brown vomitus this AM. CHRISTENSEN resolved after sumitriptan last night. slept okay. s/p bronchial biopsy with confirmed visual endobronchial lesion. Dr. Otoole of radiation oncology and Dr. Lombardo of hematology oncology consulted. denies cough, SOB, chest pain, abdominal pain. Objective Active Medications: Acetaminophen (Tylenol Tab*) 650 mg PO Q4H PRN PRN Reason: FEVER/PAIN Last Admin: 06/29/17 17:46 Dose: 650 mg Albuterol (Ventolin Hfa Inhaler*) 2 puff INH Q4H PRN PRN Reason: SOB/WHEEZING Albuterol/Ipratropium (Duoneb (Albuterol 2.5 Mg/Ipratropium 0.5 Mg)) 1 neb INH [id number] AWAKE PRN PRN Reason: sob/wheexing Alprazolam (Xanax Tab*) 1 mg PO TID PRN PRN Reason: ANXIETY Last Admin: 06/30/17 11:58 Dose: 1 mg Citalopram Hydrobromide (Celexa Tab*) 40 mg PO DAILY [facility] Last Admin: 06/30/17 11:58 Dose: 40 mg Diphenhydramine HCl (Benadryl Iv*) 25 mg IV ONCE PRN PRN Reason: ITCHING Stop: 06/30/17 18:30 Fluticasone Propionate (Flonase Nasal [place] 50mcg*) 2 spray BOTH NARES DAILY [facility] Last Admin: 06/30/17 08:53 Dose: 2 spray Ceftriaxone Sodium 1 gm/ (Sodium Chloride) 50 mls @ 200 mls/hr IVPB Q24H [facility] Last Admin: 06/29/17 15:23 Dose: 200 mls/hr Azithromycin 500 mg/ Sodium (Chloride) 250 mls @ 250 mls/hr IVPB Q24H [facility] Last Admin: 06/29/17 15:53 Dose: 250 mls/hr Lactated Ringer's (Lactated Ringers 1000 Ml Bag*) 1,000 mls @ 125 mls/hr IV PER RATE [facility] Last Admin: 06/30/17 06:28 Dose: 125 mls/hr Naloxone HCl (Narcan*) 0.08 mg IV Q2M PRN PRN Reason: severe induced resp depression Stop: 07/01/17 14:49 Omeprazole (Prilosec Cap*) 20 mg PO 0600 [facility] Last Admin: 06/30/17 06:50 Dose: Not Given Ondansetron HCl (Zofran 40 Mg Vial*) 4 mg IV Q6H PRN PRN Reason: NAUSEA Last Admin: 06/30/17 08:57 Dose: 4 mg Vital Signs - 8 hr 06/30/17 06/30/17 06/30/17 09:05 11:12 11:58 Temperature 97.8 F Pulse Rate 104 Respiratory 16 16 16 Rate Blood Pressure 148/84 (mmHg) O2 Sat by Pulse 99 Oximetry 06/30/17 06/30/17 06/30/17 15:31 15:35 15:40 Temperature 97.9 F Pulse Rate 118 120 121 Respiratory 31 29 30 Rate Blood Pressure 112/67 117/63 119/71 (mmHg) O2 Sat by Pulse 94 92 93 Oximetry 06/30/17 06/30/17 06/30/17 15:45 16:00 16:15 Temperature Pulse Rate 120 115 117 Respiratory 33 27 27 Rate Blood Pressure 116/73 114/71 117/72 (mmHg) O2 Sat by Pulse 93 93 96 Oximetry 06/30/17 16:17 Temperature Pulse Rate Respiratory 22 Rate Blood Pressure (mmHg) O2 Sat by Pulse Oximetry Oxygen Devices in Use Now: None Appearance: NAD Eyes: No Scleral Icterus, PERRLA Ears/Nose/Mouth/Throat: NL Teeth, Lips, Gums, Mucous Membranes Moist Neck: NL Appearance and Movements; NL JVP, Trachea Midline Respiratory: Symmetrical Chest Expansion and Respiratory Effort, Clear to Auscultation, - Cardiovascular: NL Sounds; No Murmurs; No JVD, RRR Abdominal: NL Sounds; No Tenderness; No Distention, No Hepatosplenomegaly Extremities: No Edema, No Clubbing, Cyanosis Skin: No Rash or Ulcers, No Nodules or Sclerosis Neurological: Alert and Oriented x 3, NL Sensation, NL Muscle Strength and Tone Nutrition: Taking PO's Result Diagrams: 06/30/17 05:21 06/29/17 06:11 Additional Lab and Data: Laboratory Results - last 24 hr 06/28/17 06/30/17 06/30/17 13:33 05:21 05:21 WBC 17.8 H RBC 4.25 Hgb 10.7 L Hct 33 L MCV 78 L MCH 25 L MCHC 33 RDW 16 H Plt Count 607 H D MPV 6.9 L Neut % (Auto) 83.7 H Lymph % (Auto) 10.8 L [place] % (Auto) 4.7 Eos % (Auto) 0.5 Baso % (Auto) 0.3 Absolute Neuts (auto) 14.9 H Absolute Lymphs (auto) 1.9 Absolute Monos (auto) 0.8 Absolute Eos (auto) 0.1 Absolute Basos (auto) 0.1 Absolute Nucleated RBC 0 Nucleated RBC % 0 ESR 114 H POC Glucose (mg/dL) Alkaline Phosphatase 414 H Alk Phos Iso-Intestine 0.0 Alk Phos Iso-Intestin % 0.0 Alk Phos Iso-Bone 29.8 Alk Phos Iso-Bone % 7.2 L Alk Phos Iso-Liver 87.4 H Alk Phos Iso-Liver % 21.1 H Alk Phos Iso-Placenta Notpresent Procalcitonin < 0.1 06/30/17 06:31 WBC RBC Hgb Hct MCV MCH MCHC RDW Plt Count MPV Neut % (Auto) Lymph % (Auto) [place] % (Auto) Eos % (Auto) Baso % (Auto) Absolute Neuts (auto) Absolute Lymphs (auto) Absolute Monos (auto) Absolute Eos (auto) Absolute Basos (auto) Absolute Nucleated RBC Nucleated RBC % ESR POC Glucose (mg/dL) 98 Alkaline Phosphatase Alk Phos Iso-Intestine Alk Phos Iso-Intestin % Alk Phos Iso-Bone Alk Phos Iso-Bone % Alk Phos Iso-Liver Alk Phos Iso-Liver % Alk Phos Iso-Placenta Procalcitonin Assess/Plan/Problems-Billing Assessment: 56 yo female PMH COPD, former smoker 20 pack years, anxiety, depression, breast cancer s/p b/l mastectomy, chemoradiation 13 years ago p/w hematemesis (though likely lung source). EGD negative. CT chest concerning for possible maligancy. Probably bronchogenic carcinoma which visually was all but confirmed pathologically with Dr. Sequeira 06/30. - Patient Problems (1) Hematemesis with nausea Current Visit: Yes Status: Acute Code(s): K92.0 - HEMATEMESIS SNOMED Code( s): 5310069 Comment: s/p EGD w/o e/o of bleeding source. Suspect lung source 2/2 bronchogenic malignancy which was visually all but confirmed with bronchial biopsy( w/ Dr. Sequeira 06/30) No PE on CTA. has stopped. hgb 10.7, stable. ESR CBC daily zofran prn. appreciate pulmonology and GI recs. Dr. Otoole of radication oncology and Dr. Lombardo of hematology oncology were consulted. (2) COPD (chronic obstructive pulmonary disease) Current Visit: Yes Status: Acute Code(s): J44.9 - CHRONIC OBSTRUCTIVE PULMONARY DISEASE, UNSPECIFIED SNOMED Code(s): 24918760 Comment: continue inhalers, no bronchospastic has been coughing on cftx/azithormycin given leukocytosis but has not improved. possible post obstructive pna vs more likely maligancy related. will stop abx. procalcitonin < 0.1. (3) Anxiety and depression Current Visit: Yes Status: Acute Code(s): F41.9 - ANXIETY DISORDER, UNSPECIFIED; F32.9 - MAJOR DEPRESSIVE DISORDER, SINGLE EPISODE, UNSPECIFIED SNOMED Code(s): 55606543 Comment: citalopram 40mg po (4) Headache Current Visit: Yes Status: Acute Code(s): R51 - HEADACHE SNOMED Code(s): 36798270 Comment: tylenol prn relieved with sumitriptan given clinical context need to rule out brain mets. plan MRI brain but after talk with Dr. Lombardo will defer that for later given recent CTA chest dye load as has no focal neurological symptoms. Pt will need abdominal imaging as well. (5) Leukocytosis Current Visit: Yes Status: Acute Code(s): D72.829 - ELEVATED WHITE BLOOD CELL COUNT, UNSPECIFIED SNOMED Code(s): 837003186 Comment: f/u cultures (none back).stopping ceftriaxone, azithromycin negative procalcitonin. suspect malignancy related. Status and Disposition: medicine.inpatient. likely d/c 07/01
[2017-06-30] MEDS: cefTRIAXone(*) 1 GM in NS 0.9% 50 ML* 50 ML IVPB SCH (16:56)
[2017-06-30] MEDS: Acetaminophen TAB* 325 MG PO PRN (19:28)
--- NOTE | 2017-07-01 03:45 | CONS ---
MEDICAL ONCOLOGY CONSULTATION NOTE: DATE OF CONSULT: 06/30/17 REASON FOR CONSULT: Newly-diagnosed carcinoma in the lung with recent hemoptysis and hematemesis. HISTORY OF PRESENT ILLNESS: Jordana Hurst is a 56-year-old female with a previous history of breast cancer in 2005. For details, please see below. The patient had noted about 6 weeks ago that her breathing became worse. She was found to have an exacerbation by her primary care physician, of her COPD. She was placed on multiple inhalers along with oral steroids for cough and wheezing without any significant shortness of breath. She reported at that time that a chest x-ray was done at the [facility] in [place] which was apparently unremarkable. Her symptoms worsened and she actually stopped her inhalers about 1 week ago. Upon doing so, she felt as though she was doing somewhat better. She felt that her coughing and wheezing have resolved. One day prior to admission and 3 days prior to this consultation, she started bringing up bright red blood and clot in tablespoon quantities. She is unsure whether this was coming from her lungs or from her stomach. Coughing spells seem to make her almost vomit. She has had several episodes since in the hospital, although not severe as that on admission. CT scan was performed, this revealed a 3.3 x 2.6 cm right suprahilar upper lobe mass encasing the right upper lobe pulmonary arteries, veins and airways resulting in right upper airway stenosis. The mass extended into the right hilum and mediastinum with a proximal 70% compression of the right main stem bronchus and bronchus intermedius. Mild postobstructive pneumonia was noted. In addition, there is a 2.3 cm short-axis right paratracheal lymph node along with a 3 cm short- axis subcarinal lymph node and a 1.3 cm short-axis right hilar lymph node. Small pericardial effusion was noted suspicious for potential malignant effusion. The left lung was clear. There was no evidence for any pulmonary emboli. The patient underwent an upper GI endoscopy on 06/28/17. This did not reveal any source for bleeding. She then on the day of this consultation underwent a bronchoscopy with EBUS, and preliminary result of the pathology reveals carcinoma, most likely adeno. It is unclear at this point whether this is a primary lung cancer or whether it may be a metastatic breast cancer. The patient has had some headaches recently, although reports of these are similar to the headaches she has had since age 7 when she developed migraines. Excedrin helps when she takes migraine, these were associated with visual auras. She has had headaches until today, but none today. She denies any associated tingling, numbness, or weakness of her extremities. PAST MEDICAL HISTORY: Mammogram in January 2005 following the patient noticing a mass herself in her right breast in November 2004. Mammography revealed a 4 cm spiculated mass in the upper outer quadrant of the right breast along with a 1.5 cm mass in the retroareolar region and a 1.7 cm mass deep to the nipple in the medial breast. Multiple left breast cysts were noted along with axillary lymph nodes. The patient was seen in consultation by Dr. Laura Vasquez of Surgery and Dr. Aknush Brenner of Medical Oncology. FNA of the right axillary mass revealed malignancy, this was ER/AZ positive and HER-2/sabas negative. She received a total of 6 cycles of neoadjuvant Adriamycin, Cytoxan, and Taxotere chemotherapy completing in May 2005. Mastectomy was recommended due to detection of multiple areas of cancer in the right breast. The patient elected to have bilateral mastectomies performed at that time. Pathology post neoadjuvant chemotherapy still revealed a 2.5 cm moderately differentiated to poorly differentiated infiltrated ductal carcinoma with extensive ductal carcinoma in situ with lymph node vascularization. 2/17 lymph nodes were positive for cancer. The patient subsequently received a course of radiation therapy with Dr. Torres of Radiation Therapy here in [place] followed by hormonal therapy initially with tamoxifen and eventually was postmenopausal, completing a 5-year course with Arimidex. Past medical history otherwise significant for COPD, anxiety, and depression. MEDICATIONS: At the time of this admission include: 1. Lexapro 20 mg. 2. Xanax 1 mg t.i.d. p.r.n. 3. Vitamin D. 4. Zyrtec 10. 5. Vitamin B12. 6. Excedrin p.r.n. 7. Omeprazole 40 mg daily. 8. Inhalers along with recent steroids, but had stopped these prior to admission. ALLERGIES: None. FAMILY HISTORY: Mother with glioblastoma multiforme, in her 50s. Half sister also with the GBM. Breast cancer history that of maternal aunt with breast cancer at 70 and a maternal great grandmother with breast cancer in her 70s. The patient herself has never had any genetic testing. Reports that her sister has tested negative for BRCA1 and BRCA2. SOCIAL HISTORY: The patient is a smoker starting at age 30 intermittently for approximately 20 years, quitting several months ago. Smoking less than a pack per day. Denies any significant alcohol use. 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 Reports that she is having disability for anxiety. She lives with her daughter who is 38 and her adopted son who is 19. She is . REVIEW OF SYSTEMS: She has had approximately 20-pound weight loss since last November, reports this was when she stopped eating ice cream, although it was not terribly intentional. She reports that she is weak, but the weakness is not necessarily focal. The weakness is such that she has been using a walker in the hospital. Appetite has been fair. No nausea or vomiting until these last several days. No major changes in bowel or bladder habits. No major arthritic or bony complaints. Review of systems otherwise negative except as discussed in the accompanied health history form. PHYSICAL EXAM: General: A 56-year-old female in no acute distress. Vital Signs: Blood pressure 123/70, pulse 109, afebrile. HEENT: PERRL, EOMI. No erythema or exudates. No palpable cervical, supraclavicular or axillary adenopathy. Heart: Tachycardic without murmurs, rubs, or gallops. Lungs: Few rhonchi, but no rales or wheezes. Abdomen: Soft, nontender without masses or organomegaly. Extremities: No clubbing, cyanosis, or edema. Back: No CVA or spinal tenderness. Neurologic: Cranial nerves II through XII are intact. Motor is 5-/5 to 5/5 throughout. Breasts have some bilateral mastectomies with well-healed scars and with right axillary resection having previously been performed. DIAGNOSTIC STUDIES/LAB DATA: White count 17,800, H and H 33/10.7, platelet count 607,000. Chemistry studies: Sedimentation rate of 114. Chemistry studies: Sodium 138, potassium 4.1, chloride 106, bicarb 24, BUN 10, creatinine 0.74, glucose 98. LFTs are within normal limits except for alkaline phosphatase elevated at 349 with isoenzymes being mostly that for the liver. IMPRESSION: 1. A 56-year-old female with previous history of locally advanced stage breast cancer, lymph node positive large tumor, requiring neoadjuvant chemotherapy followed by mastectomy and radiation. She is now approximately 12 years out from her breast cancer and has developed a large lung mass, which is causing compression of vessels and airways in the right lung along with hemoptysis. She will certainly need a course of radiation therapy to try to stop the hemoptysis. If the hemoptysis increases over the weekend, she will need to be transferred to another hospital that will have the capability of giving radiation therapy over the holiday weekend or in general, at most any other weekend. If her hemoptysis stabilizes and does not persist at a large level, the patient could be seen back on next Monday to commence a course of radiation therapy with Dr. Otoole. Pathology has been discussed with Dr. Otoole , but also with of Pathology and this is almost certainly an adenocarcinoma. Special stain will be performed to determine if this is a primary lung cancer versus metastatic disease from the graft versus some other primary. The patient herself states that she will be willing to go forward to radiation therapy, but is not certain that she would want any chemotherapy or not. It was explained to her that this will be metastatic breast and hormonal therapy could certainly be used. If it is not breast cancer, chemotherapy or potentially in certain situation, targeted therapy or immunotherapy might also be available. She is not leaving out systemic therapy at this time. It is unclear as to whether she would accept it. 2. Elevated LFTs. Lack of full staging. The patient will need a CT scan of the abdomen and pelvis in the near future along with imaging of her brain. She reports her headaches are not significantly different from her baseline, but still given the extent of her disease, SA[facility] imaging would also be appropriate. The patient will continue to be followed as an outpatient. If she is discharged , will be followed in hospital if need be. [id number]/[facility] #: [id number] [facility]ALTH[facility]
[2017-07-01] MEDS: Omeprazole CAP* 20 MG PO SCH (05:50)
[2017-07-01] MEDS: ALPRAZolam TAB* 0.5 MG PO PRN (05:54)
[2017-07-01 06:16] LABS: ABS Basophils 0.1 10^3/ul (0-0.2); ABS Eosinophils 0.1 10^3/ul (0-0.6); ABS Lymphocytes 1.5 10^3/ul (1.0-4.8); ABS Monocytes 0.7 10^3/ul (0-0.8); ABS Nucleated RBC 0 10^3/ul; Eosinophil % 0.4 % (0-6); Hematocrit 31 % (35-47); Hemoglobin 10.1 g/dl (12.0-16.0); Lymphocyte % 9.7 % (25-47); Mean Corpuscular HGB Conc 33 g/dl (31-36); Mean Corpuscular Hemoglobin 25 pg (27-31); Mean Corpuscular Volume 78 fL (80-97); Mean Platelet Volume 6.6 um3 (7.4-10.4); Nucleated Red Blood Cells % 0; Platelet Count 532 10^3/ul (150-450); Red Blood Count 3.98 10^6/ul (4.0-5.4); Red Cell Distribution Width 16 % (10.5-15); White Blood Count 15.4 10^3/ul (3.5-10.8)
[2017-07-01] MEDS: Fluticasone NASAL SPRAY 50MCG* 16 gm SPRAY BTL BOTH NARES SCH (08:21)
[2017-07-01] MEDS: Citalopram TAB* 40 MG PO SCH (08:21)
[2017-07-01 11:42] VITALS: BP 141/73
[2017-07-01] MEDS ORDERED: Ondansetron ODT TAB* 4 MG SL PRN (12:21)
--- NOTE | 2017-07-01 13:20 | PRO ---
BRONCHOSCOPY REPORT: DATE OF PROCEDURE: 06/30/17 PROCEDURE PERFORMED: Bronchoscopy with endobronchial ultrasound guided fine- needle aspiration from L4 and station R4 lymph node. PREPROCEDURAL DIAGNOSIS: Lung mass, mediastinal adenopathy, concerning for malignancy. POSTPROCEDURAL DIAGNOSIS: Lung cancer. DESCRIPTION OF PROCEDURE: Informed consent was obtained from the patient prior to the procedure after all the risks and benefits were thoroughly explained. The patient has history of breast cancer, admitted with hemoptysis, found to have right-sided lung mass and adenopathy. The patient was intubated to facilitate general anesthesia. Flexible Olympus bronchoscope was inserted through ET tube for airway inspection. There was evidence of endobronchial lesion with increased vascularity in right mainstem bronchus, 0.5 cm from the dave. The lesion was bleeding with minimal touch and suctioning. There was extrinsic compression of right mainstem bronchus and intermedius bronchus. Airways beyond the endobronchial lesion were patent. Left-sided airway was then inspected. Thin secretions were noted and were suctioned out. Evidence of bronchomalacia was seen. Bronchoscope was then withdrawn. An EBUS bronchoscope was inserted. Station L4 was minimally enlarged and was sampled with 2 passes. Rapid onsite evaluation revealed lymphatic tissue with no malignant cells. R4 was sampled with 8 passes. Rapid onsite evaluation revealed lymphatic tissue and malignant cells. Rest of the specimen was placed in CytoLyt. The patient tolerated the procedure well. The patient was extubated and seen in Recovery in optimal condition. [id number]/[facility] #: [id number] MTDD
--- NOTE | 2017-07-01 23:09 | DS ---
CC: Dr. Lombardo, Oncology; Dr. Otoole, Radiation Oncology * DISCHARGE SUMMARY: DATE OF ADMISSION: 06/28/17 DATE OF DISCHARGE: 07/01/17 ADMITTING PROVIDER: Cally Chandler MD ATTENDING PHYSICIAN: Santy Arce MD PRIMARY CARE PROVIDER: Previously, Shirlene Madden, does not otherwise have one given Dr. Madden's skilled nursing. Was given referral to [facility] if can arrange. CHIEF COMPLAINT: Vomiting of blood. PRINCIPAL DIAGNOSIS: Hemoptysis in the setting of suspected adenocarcinoma in the right upper lobe extending into the hilum, mediastinum, and compressing the right mainstem bronchus and bronchus intermedius. Pathology pending from endobronchial biopsy with Dr. Sequeira on 06/30/17. HISTORY OF PRESENT ILLNESS AND HOSPITAL COURSE: Jordana Hurst is a 56-year-old female with past medical history of COPD, anxiety, depression, breast cancer (ER/SD positive, HER2/sabas negative) status post neoadjuvant chemotherapy, bilateral mastectomy; mildly differentiated to poorly differentiated infiltrative ductal carcinoma with extensive ductal carcinoma in situ and 2/17 lymph nodes positive for cancer, for radiation and tamoxifen and Arimidex. She presents with a complaint of a month and a half of increased cough and shortness of breath. She saw [facility] primary care, who prescribed inhalers, Flovent and Anoro, which seemed to be causing frontal headaches. She developed a coughing spell and at the end of that, she vomited it seemed like what was approximately 100 to 200 cc of blood with the vomitus and food pieces. In the emergency room, she had a chest x-ray, which showed a right suprahilar opacity up to 3.2 cm. She had a CTA of the chest, which showed 3.3 x 2.6 cm suprahilar right upper lobe mass encasing the right upper lobe pulmonary arteries, veins, and airways with significant resulting right upper lobe airway stenosis, extended to the right hilum and mediastinum resulting in approximately 70% compression of the right main stem bronchus and bronchus intermedius with mild postobstructive pneumonitis or patchy direct tumor extension. There was a small pericardial effusion with nodular contour anteriorly suspicious for potentially an inflammatory or malignant effusion. There was no pulmonary embolism. The patient was referred to Gastroenterology and had an EGD with Dr. Layton on 06/28/17, which showed normal esophagus and normal stomach with some areas of nonvisualization due to retained food. There is no old or new blood in the stomach. There was mild duodenitis of the bulb without evidence of ulceration. The patient had a pulmonology consult with Dr. Sequeira, who performed an endobronchial ultrasound-guided fine needle aspiration on 06/30/17. It was noted to have an endobronchial lesion with vascularity in the right mainstem bronchus about 0.5 cm from the dave. There was bleeding with normal touching and suctioning. There was extrinsic compression of the right mainstem bronchus and intermedius bronchus. The R4 lymph node showed evidence of malignant cells on rapid onsite evaluation. The patient had consultation with Dr. Cuauhtemoc Otoole of Radiation Oncology and Dr. Lombardo of Hematology/Oncology and will be following up with Dr. Otoole on 07/04/17 for further evaluation and possible simulation given suspected need for radiation treatments. The patient will have to have additional staging of her cancer if this is confirmed on final pathological report, which would include abdominal and pelvis imaging as well as likely brain STUDENT EDUCATION SPECIALIST imaging. She has complained of headaches during the admission with some nausea requiring antiemetics. She was treated with ceftriaxone and azithromycin given the elevated white count and possible postobstructive syndromes. She was not able to provide a sputum sample. A blood culture was obtained. White count was elevated between 15.9 and 17.8, it was 15.4 on the day of discharge. Antibiotics were not continued on discharge. She was eager for discharge home with outpatient workup of her suspected adenocarcinoma, which could be likely either lung primary or breast cancer. Her hemoglobin is stable between 9.8 and 10.7; on discharge, 10.1. She was given referral for [facility] if she cannot establish care with a primary care doctor expediently. Also, she will follow up with Dr. Lombardo within 1 week. MEDICATIONS ON DISCHARGE: Include: 1. Zofran 4 mg sublingual ODT tablets q.6 hours p.r.n. (new). 2. Xanax 1 mg p.o. t.i.d. p.r.n. 3. Albuterol inhaler 1 to 2 puffs inhaler q.4 hours p.r.n. 4. Zyrtec 10 mg p.o. daily. 5. Cholecalciferol 5000 units p.o. daily. 6. Lexapro 20 mg p.o. daily. 7. Flovent Diskus 1 puff inhaled b.i.d. 8. Fluticasone nasal spray 2 sprays both nares daily. 9. Prilosec 40 mg p.o. daily. 10. Anoro Ellipta 1 inhaled daily. 11. Vitamin B complex 1 tab p.o. daily. ACTIVITY LEVEL: No restrictions. DIET: No restrictions. FOLLOW UP: The patient is going to follow up with Dr. Cuauhtemoc Otoole on 07/04/17, at 10:45 a.m. and is recommended to follow up with Dr. Donald Lombardo within 7 days of discharge. She was given a walker with Julien and referral to [facility]. She should establish care with a primary care doctor within 3 to 5 days of discharge and was given card to call [facility] to follow up with Dr. Arce next week, with Dr. Rascon in the week following. [id number]/[facility] #: [id number] JEAN
== END 2017-07-01 13:25 | disposition home or self-care (01) | DRG 181 ==
LOC: ED 12:42 → INTOOBSV 15:34 → MED 15:34 → INTOOBSV 22:52 → OBSVTOIN 22:52
PROVIDERS: ADMIT Internal Medicine; ATTEND Internal Medicine
PROC: 0DJ08ZZ Inspection of Upper Intestinal Tract, Via Natural or Artificial Opening Endoscopic (ICD-10-PCS; 2017-06-28)
PROC: 07D78ZX Extraction of Thorax Lymphatic, Via Natural or Artificial Opening Endoscopic, Diagnostic (ICD-10-PCS; principal; 2017-06-30 14:00)
DX: C34.11 Malignant neoplasm of upper lobe, right bronchus or lung (principal); C78.1 Secondary malignant neoplasm of mediastinum; J44.9 Chronic obstructive pulmonary disease, unspecified; F41.9 Anxiety disorder, unspecified; F32.9 Major depressive disorder, single episode, unspecified; Z92.21 Personal history of antineoplastic chemotherapy; Z90.13 Acquired absence of bilateral breasts and nipples; Z92.3 Personal history of irradiation; Z88.4 Allergy status to anesthetic agent; Z88.5 Allergy status to narcotic agent; Z80.8 Family history of malignant neoplasm of other organs or systems; Z87.891 Personal history of nicotine dependence; D50.9 Iron deficiency anemia, unspecified; R51 Headache; D72.829 Elevated white blood cell count, unspecified; Z80.3 Family history of malignant neoplasm of breast; R79.89 Other specified abnormal findings of blood chemistry; K21.9 Gastro-esophageal reflux disease without esophagitis; M19.90 Unspecified osteoarthritis, unspecified site; J98.09 Other diseases of bronchus, not elsewhere classified; K29.80 Duodenitis without bleeding; Z85.3 Personal history of malignant neoplasm of breast
CPT/HCPCS: 36415; 71046; 71275; 80048; 80053; 80076; 81445; 82607; 82728; 82746; 83540; 83550; 84080; 84145; 85014; 85018; 85025; 85610; 85652; 85730; 86850; 86900; 86901; 88172; 88173; 88177; 88305; 88341; 88342; 88360; 93005; 99156; 99157; 99283; A9270-GY; G0378; J0330; J0456; J0696; J1240; J2250; J2405; J2704; J3010; Q9967

== ENCOUNTER 2017-07-11 12:44 | Inpatient (IN) | payer MEDICARE, MEDICAID ==
[2017-07-11] MEDS ORDERED: Ondansetron ODT TAB* 4 MG SL PRN (14:22)
[2017-07-11 17:02] LABS: EGFR Non-African American 81.2 (>60)
[2017-07-11] MEDS ORDERED: Gadoteridol* (CONTRAST) 279.3 MG/ML 10 ML IV ONE (19:23)
[2017-07-11] MEDS: Dexamethasone TAB* 4 MG PO SCH (20:10)
[2017-07-11] MEDS: Mometasone 220 MCG MDI INH SCH (20:11)
[2017-07-11] MEDS: ALPRAZolam TAB* 0.5 MG PO PRN (20:17)
[2017-07-11] MEDS: NS 0.9% 1000 ML* 1,000 ML IV SCH (22:16)
--- NOTE | 2017-07-12 08:43 | CONS ---
BLANKS DUE TO POOR VOICE QUALITY CONSULTATION REPORT: DATE OF CONSULT: 07/11/17 HISTORY OF PRESENT ILLNESS: The patient is a very pleasant 56-year-old female with a past medical history of COPD, breast cancer, status post bilateral mastectomies and radiation and chemotherapy 13 years ago, former smoker, who was recently admitted to [facility] because of hemoptysis. During her workup, CT scan of the chest revealed new chest lesions. We were requested to see the patient by Dr. Otoole regarding CT scan findings consistent with right cerebellar mass and hydrocephalus with left frontal mass. The patient was admitted to the hospital for observation and was placed on steroids and MRI was ordered. The patient reported that she had altered mental status while she was in the hospital. She reports that she is feeling much better since this morning after being started on steroids. She feels that she is not confused anymore. She denies any headaches. She denies any nausea or vomiting. She denies any visual or speech difficulties. Denies any seizures. Denies any weakness, numbness or tingling in her extremities. She reportedly has not tried to ambulate, but she does have some difficulty with her bowels. The patient is single, lives alone and has two children, a son and a daughter. Her healthcare proxy, she reports to be her sister and her daughter. PAST MEDICAL HISTORY: COPD, anxiety, depression, breast cancer, status post bilateral mastectomies and radiation and chemotherapy. PAST SURGICAL HISTORY: The patient has bilateral mastectomies. MEDICATIONS: The patient was on: 1. Ibuprofen. 2. Lexapro. 3. Xanax. 4. Vitamin B. 5. Vitamin D. 6. Zyrtec. 7. Omeprazole. 8. Tikosyn. 9. Flovent. 10. Albuterol amongst other. ALLERGIES: CODEINE. FAMILY HISTORY: Positive for brain tumor reportedly in her mother. SOCIAL HISTORY: Tobacco positive for 20 pack years. The patient reports that she has stopped smoking recently in February. Alcohol is negative. Recreational use is negative. 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 PHYSICAL EXAM: The patient is not in acute distress. She is awake, alert, and oriented x3, although occasionally she will hesitate to articulate the name of the President. Pupils are equal and reactive. Cranial nerves II through XII are grossly intact. Motor 4/5 in all extremities. No pronator drift. Sensory grossly intact to light touch. Position intact. Deep tendon reflexes +1 bilaterally. No clonus. No Babinski. Christensen's negative. Straight leg test is negative in the seated position. Pedal pulses are present bilaterally. The patient has no tenderness to palpation of thoracic or lumbar spine. Has free range of motion in her cervical spine. She does have signs of ataxia and positive dysmetria on the right. DIAGNOSTIC STUDIES/LAB DATA: This patient had a CT scan of the brain revealing right cerebellar lesions with surrounding edema with compression of the fourth ventricle. The patient also has ventriculomegaly and evidence of a mass on the left frontal lobe. The patient has also MRI of the brain that revealed similar findings with 2 metastatic possibly lesions in the right cerebellar area. The one of them would be based on inferior surface of the tentorium. There is suspicion of a third lesion in the cerebellum. There is distortion of left fourth ventricle and mass effect on the sylvian aqueduct and ventriculomegaly. The patient also has evidence of further lesions especially on the left frontal lobe. All of these lesions are strongly enhancing. There is some evidence of mild transependymal flow and edema especially in the posterior portion as well as surrounding some of the lesions on the left frontal lobe. ASSESSMENT: The patient is a very pleasant 56-year-old female, former smoker with a history of breast cancer, status post bilateral mastectomies and radiation, chemotherapy and a recent diagnosis of chest lesions and multiple brain lesions. PLAN: The patient at this point has been admitted to the hospital for observation. We will monitor her vital signs, neuro checks q.2 hours as well as telemetry overnight. She feels that she is getting better and seems that steroids are going to help her. We discussed the possibility of surgical intervention in the form of posterior fossa craniectomy and resection of cerebellar lesions and also placement for ventricular drain. The patient is not sure at this point, whether she would like to proceed, but she reports if she needs an urgent ventriculostomy she would like us to proceed with placement of ventriculostomy if needed. She will talk with her family regarding the plans for further surgical resection and would be happy to discuss with Dr. Otoole and possibility of surgical intervention versus radiation and regarding the next treatment steps. Thank very much for allowing us to participate in the care of this patient. Please do not hesitate to contact our office in case you have any further questions or concerns regarding the care of this patient. [id number]/[facility] #: [id number] JEAN
[2017-07-12] MEDS: Cholecalciferol TAB* 1000 UNITS PO SCH (09:06)
[2017-07-12] MEDS: Omeprazole CAP* 20 MG PO SCH (09:06)
[2017-07-12] MEDS: Cetirizine* 10 MG TAB PO SCH (09:07)
[2017-07-12] MEDS: Citalopram TAB* 40 MG PO SCH (09:07)
[2017-07-12] MEDS: Dexamethasone TAB* 4 MG PO SCH ×2 (09:07→20:53)
--- NOTE | 2017-07-12 09:56 | RAD ---
Indication: Lung cancer with brain metastatic disease. Correlation is made with CT scan performed on July 10, 2017. The lateral ventricles are prominent in size. There is some minimal edema at the aqueduct of Sylvius. There is edema causing mass effect on the fourth ventricle. Ring-enhancing lesion is noted in the superior cerebellum with adjacent white matter edema measuring up to 1.6 cm. In the right inferior cerebellum is a lobulated enhancing lesion measuring up to 1.8 cm. Small, 3 to 4 mm, enhancing lesion is noted in the right inferior cerebellar vermis. Enhancing lesion is noted in the left frontal lobe measuring 8 mm. In the left superior temporal lobe is an additional enhancing lesion measuring 7 mm. Additional subcortical white matter enhancing lesion is noted measuring 4 mm. The right cerebral hemisphere is otherwise unremarkable. The clivus is otherwise unremarkable. IMPRESSION: 1. Multiple enhancing lesions are noted in the right cerebellum with two large lesions in the right cerebellum with vasogenic edema. There is suggestion of some mass effect on the fourth ventricle. There is an enhancing lesion in the right cerebellar vermis as well. 2. At least two enhancing lesions are noted in the left frontal lobe, one measuring 8 mm and the other measuring 3 mm. In the left temporal lobe, additional enhancing lesion measuring 7 mm is noted in the left.
[2017-07-12] MEDS: NS 0.9% 1000 ML* 1,000 ML IV SCH (14:19)
[2017-07-12] MEDS: Mometasone 220 MCG MDI INH SCH (20:17)
[2017-07-12] MEDS: ALPRAZolam TAB* 0.5 MG PO PRN (21:04)
--- NOTE | 2017-07-13 01:07 | PN ---
Progress Note - Progress Note Date of Service: 07/13/17 SOAP: Subjective: []Patient was seen earlier. No events ON. Tolerates PO well. Ambulates with assistance. On Decadron Objective: []VSS AAOx3, ALPHONSO, CN II-XII grossly intact Motor 5/5 Sensory grossly intact to light touch Dysmetria present on the right Assessment: []56 yof multiple brain lesions, hx of breast Ca with second primary lung Ca Plan: []Monitor VS, Neurochecks Continue steroids Will transfer to [facility] for further management and posterior fossa craniectomy. Discussed in extend with the patient and her niece regarding treatment options including radiosurgery vs operative resection of cerebellar lesions followed by radiation. Patient would like to proceed with surgical intervention. Discussed risks, benefits, expectations and possible complications of the porcedure including risk of bleeding, infection, injury to adjacent structures, coma, paralysis, , need for additional procedure, difficulty with speech, balance , movements, spinal fluid leak, need for ventriculostomy, shunt placement, inability to achieve total resection, anesthesia risks. Patient understands and would like to proceed with surgical intervention. Mary Lou Petty MD
[2017-07-13 05:45] LABS: Hematocrit 31 % (35-47); Hemoglobin 9.8 g/dl (12.0-16.0); Mean Corpuscular HGB Conc 32 g/dl (31-36); Mean Corpuscular Hemoglobin 25 pg (27-31); Mean Corpuscular Volume 78 fL (80-97); Mean Platelet Volume 6.9 um3 (7.4-10.4); Platelet Count 693 10^3/ul (150-450); Red Blood Count 3.93 10^6/ul (4.0-5.4); Red Cell Distribution Width 16 % (10.5-15); White Blood Count 30.7 10^3/ul (3.5-10.8)
[2017-07-13] MEDS: NS 0.9% 1000 ML* 1,000 ML IV SCH (05:56)
[2017-07-13 06:04] LABS: EGFR Non-African American 85.2 (>60)
[2017-07-13 06:12] LABS: ABS Basophils 0 10^3/ul (0-0.2); ABS Eosinophils 0 10^3/ul (0-0.6); ABS Lymphocytes 1.9 10^3/ul (1.0-4.8); ABS Monocytes 1.5 10^3/ul (0-0.8); ABS Neutrophils 27.3 10^3/ul (1.5-7.7); ABS Nucleated RBC 0 10^3/ul; Eosinophil % 0 % (0-6); Lymphocyte % 6.3 % (25-47); Nucleated Red Blood Cells % 0
[2017-07-13] MEDS: Dexamethasone TAB* 4 MG PO SCH (09:06)
[2017-07-13] MEDS: Cholecalciferol TAB* 1000 UNITS PO SCH (09:06)
[2017-07-13] MEDS: Citalopram TAB* 40 MG PO SCH (09:06)
[2017-07-13] MEDS: Cetirizine* 10 MG TAB PO SCH (09:06)
[2017-07-13] MEDS: Omeprazole CAP* 20 MG PO SCH (09:06)
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
--- NOTE | 2017-07-13 10:21 | DS ---
- Discharge Summary TRANSFER SUMMARY Admission Date: 07/11/2017 Transfer Date: 07/13/2017 Transfer Diagnosis: 1. Brain lesions: plan for posterior fossa craniectomy requiring tertiary care d /t intraoperative MRI 2. Lung Cancer: recently diagnosed and further tx. pending above surgery 3. COPD: stable breathing, no change at this time 4. PMH Breast Cancer: right, 01/2005, s/p neoadjuvant AC-T, bilat. mastectomy, RT, and hormone therapy x5 years Transfer Medications: 1. Lorazepam 1 mg IV q30 min. PRN seizure during transfer 2. NS @ 75 mL/hr IV continuous 3. Citalopram 40 mg PO qday 4. Vitamin D 5,000 units PO qday 5. Cetirizine 10 mg PO qday 6. Dexamethasone 4 mg PO BID 7. Mometasone 1 puff inh. qPM 8. Omeprazole 40 mg PO qday 9. Ondansetron 4 mg SL q6hrs PRN nausea Hospital Course: Please see admission note for full H&P, however briefly, Mrs. Hurst was initially seen by Dr. Lombardo in consultation on 06/30/17 following an admission for recent onset of hemoptysis with CT of the chest revealing new lung lesions. A biopsy via EBUS completed that day revealed TTF-1 positive adenocarcinoma of the lung, PDL positive and ALK negative, EGFR and AUDIE pending. She was discharged home with plan for [facility] eval. and further [facility] planning as an outpatient, however she did not attend her appointments; per her family difficulty with walking so unable to keep appointment. On 07/10/[address] of the head as previously ordered to full staging which revealed 2 approx. 2 cm ring enhancing lesions in the cerebellum, with mass effect in the fourth ventricle and mild associated hydrocephalus. Additionally , there were 2 small enhancing lesions in the left frontal and temporal regions. She was admitted for urgent neurosurgical evaluation and steroids the following day. Dr. Varela of neurosurgery saw the patient on the evening of admission and recommended surgical intervention via posterior fossa craniectomy with resection and potential ventricular drain. Further evaluation of the case identified a need for intraoperative MRI and Dr. Varela discussed with Dr. Adeel Sheffield of [facility]'s neurosurgical team who has accepted the patient. She will therefore be transferred [facility] for surgery at tertiary care center. Plan of care was reviewed with the patient who is in agreement with transfer. Once the patient has recovered from her surgery she will likely be transferred back for local rehabilitation at which point further treatment planning can occur. Attempt to transfer pt. to closest tertiary center ([facility]) unsuccessful due to unavailability of beds. >40 min spent with >50% face to face counseling.
[2017-07-13 15:48] VITALS: BP 124/72
[2017-07-13] MEDS: ALPRAZolam TAB* 0.5 MG PO PRN (16:40)
--- NOTE | 2017-07-13 21:50 | PN ---
Progress Note - Progress Note Date of Service: 07/13/17 SOAP: Subjective: []Patient seen earlier today. No events ON. Objective: []AAOx3 ALPHONSO, CN II-XII grossly intact Motor 5/5 all extremities Sensory grossly intact to light touch Dysmetria stable Assessment: []56 yof brain mets Plan: []Transfer today. Discussed plan in details with patient and family. Mary Lou Petty MD
== END 2017-07-13 17:10 | disposition short-term general hospital (02) | DRG 54 ==
LOC: MED 14:07 → OBSVTOIN 14:08
PROVIDERS: ADMIT Internal Medicine Hematology & Oncology; ATTEND Internal Medicine Hematology & Oncology
DX: C79.31 Secondary malignant neoplasm of brain (principal); G93.6 Cerebral edema; G93.5 Compression of brain; C34.90 Malignant neoplasm of unspecified part of unspecified bronchus or lung; I31.3 Pericardial effusion (noninflammatory); G91.1 Obstructive hydrocephalus; J44.9 Chronic obstructive pulmonary disease, unspecified; Z62.810 Personal history of physical and sexual abuse in childhood; F32.9 Major depressive disorder, single episode, unspecified; F41.9 Anxiety disorder, unspecified; Z62.819 Personal history of unspecified abuse in childhood; G43.909 Migraine, unspecified, not intractable, without status migrainosus; Z90.13 Acquired absence of bilateral breasts and nipples; Z85.3 Personal history of malignant neoplasm of breast; Z92.21 Personal history of antineoplastic chemotherapy; Z92.3 Personal history of irradiation; Z80.3 Family history of malignant neoplasm of breast; Z80.8 Family history of malignant neoplasm of other organs or systems; Z87.891 Personal history of nicotine dependence; Z79.52 Long term (current) use of systemic steroids; Z88.5 Allergy status to narcotic agent
CPT/HCPCS: 36415; 70470; 70553; 80048; 80053; 85025; 99223; 99233; 99239; A9270-GY; A9579; J8540; Q9967

== ENCOUNTER 2017-09-30 21:41 | Emergency (ER) | payer MEDICARE, MEDICAID ==
[2017-09-30] MEDS ORDERED: NS 0.9% 1000 ML*IV.FLUID IV ONE (22:10)
--- NOTE | 2017-09-30 22:29 | ED ---
HPI Febrile Illness - HPI Summary HPI Summary: This patient is a 57 year old F BIBA to [facility] accompanied by her daughter with a chief complaint of fever since 6 days ago. The patient reports that her temperature peaked at 103 degrees F. The patient rates the pain 4/10 in severity. Symptoms aggravated by nothing. Symptoms alleviated by nothing. Patient reports nausea and intermittent nonproductive cough. Patient denies rash , abd pain, diarrhea, and vomiting. The patient also notes that she fell and hurt her back recently. Patient has lung cancer that has metastasized to the brain. Patient has been receiving chemotherapy treatment recently. Patient has hx of breast cancer. 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 Onset/Duration: Started Days Ago - 6 days, Atraumatic, Still Present Timing: Constant Temperature: 39.4 C Initial Severity: Mild Current Severity: Mild Pain Intensity: 4 Pain Scale Used: 0-10 Numeric Aggravating Factors: Nothing Alleviating Factors: Nothing Associated Signs and Symptoms: Cough, Nausea - Additional Pertinent History Primary Care Physician: ANALILIA - Allergy/Home Medications Allergies/Adverse Reactions: Allergies Allergy/AdvReac Type Severity Reaction Status Date / Time codeine AdvReac Vomiting Verified 08/28/17 15:32 PMH/Surg Hx/FS Hx/Imm Hx Endocrine/Hematology History: Denies: Hx Diabetes Cardiovascular History: Denies: Hx Hypertension, Hx Pacemaker/ICD Respiratory History: Reports: Hx Chronic Obstructive Pulmonary Disease (COPD) History: Denies: Hx Renal Disease Musculoskeletal History: Reports: Hx Osteoporosis Comment Only: Other Musculoskeletal History - Hx of osteopenia, degenerative bone disease Sensory History: Denies: Hx Contacts or Glasses, Hx Legally Blind, Hx Deafness, Hx Hearing Aid , Hx Hearing Problem Opthamlomology History: Denies: Hx Contacts or Glasses, Hx Legally Blind Neurological History: Reports: Hx Headaches Psychiatric History: Reports: Hx Anxiety, Hx Depression Denies: Hx Panic Disorder - Cancer History Cancer Type, Location and Year: Breast cancer, 2005, lung mets Hx Chemotherapy: Yes Hx Radiation Therapy: Yes - Surgical History Surgery Procedure, Year, and Place: TONSILECTOMY;. BILAT MASTECTOMY Infectious Disease History: No Infectious Disease History: Denies: Traveled Outside the [place] in Last 30 Days - Family History Known Family History: Negative: Diabetes - Social History Alcohol Use: None Substance Use Type: Reports: None Smoking Status (MU): Former Smoker Type: Cigarettes Length of Time of Smoking/Using Tobacco: 20 years Have You Smoked in the Last Year: No Review of Systems Positive: Fever Negative: Epistaxis Positive: Cough Positive: Nausea. Negative: Abdominal Pain, Vomiting, Diarrhea Negative: Rash All Other Systems Reviewed And Are Negative: Yes Physical Exam - Summary Physical Exam Summary: Appearance: Well-appearing, Well-nourished, lying in bed comfortably Skin: Warm, dry, no obvious rash Eyes: sclera anicteric, no conjunctival pallor ENT: mucous membranes moist, pharynx appears normal Neck: Supple, nontender Respiratory: Clear to auscultation, no signs of respiratory distress Cardiovascular: Normal S1, S2. No murmurs. Normal distal pulses in tibial and radial bilaterally. Abdomen: Soft, nontender, normal active bowel sounds present Musculoskeletal: Normal, Strength/ROM Intact Neurological: A&Ox3, awake and alert, mentation is normal, speech is fluent and appropriate Psychiatric: affect is normal, does not appear anxious or depressed Triage Information Reviewed: Yes Vital Signs On Initial Exam: Initial Vitals Temp Pulse Resp BP Pulse Ox 98.7 F 101 18 93/60 92 09/30/17 21:49 09/30/17 21:49 09/30/17 21:49 09/30/17 21:49 09/30/17 21:49 Vital Signs Reviewed: Yes Diagnostics - Vital Signs Vital Signs Temp Pulse Resp BP Pulse Ox 09/30/17 21:49 98.7 F 101 18 93/60 92 - Laboratory Result Diagrams: 09/30/17 22:36 09/30/17 22:36 Lab Statement: Any lab studies that have been ordered have been reviewed, and results considered in the medical decision making process. - Radiology CXR Xray Interpretation: Positive (See Comments) - infiltrate to left lower lobe new when compared to comparison study from 06/28 Radiology Interpretation Completed By: ED Physician - Dr. Street, pending official report - EKG 23:03 Cardiac Rate: NL - at 93 bpm EKG Rhythm: Sinus Rhythm ST Segment: Normal Ectopy: None EKG Interpretation: NSR at 93 with nml intervals and no ischemic changes Course/Dx - Course Course Of Treatment: This is a 57-year-old woman currently being treated for metastatic breast cancer who presents with intermittent fevers at home for the past few days. She is not neutropenic fortunately, but her chest x-ray does show evidence of a new left lower lobe infiltrate. This along with a fever and cough indicate she probably has pneumonia. She also has recently weaned off Decadron, so in addition to antibiotic therapy and believe she should be on a stress dose of Decadron until her doctor thinks it's safe to go off it. - Diagnoses Provider Diagnoses: Pneumonia Discharge - Sign-Out/Discharge Documenting (check all that apply): Patient Departure - Discharge Plan Condition: Good Disposition: HOME Prescriptions: Amoxicillin PO (*) [Amoxicillin 500 MG CAP*] 500 mg PO TID #30 cap Azithromycin TAB* [Zithromax TAB (Z-DEBRA) 250 mg #6 tabs] 250 mg PO DAILY #4 tab Dexamethasone TAB* [Decadron TAB*] 4 mg PO DAILY #10 tab Patient Education Materials: Bacterial Pneumonia (ED) Referrals: Carrie Kasper [Primary Care Provider] - Additional Instructions: Contact your doctor on Monday to let them know about your ED visit, and that you are being treated for suspected pneumonia. - Billing Disposition and Condition Condition: GOOD Disposition: Home - Attestation Statements Document Initiated by Scribe: Yes Documenting Scribe: Liseth Ackerman Provider For Whom Vincent is Documenting (Include Credential): Davon Street MD Scribe Attestation: Liseth Shin, scribed for Davon Street MD on 10/01/17 at 0233. Scribe Documentation Reviewed: Yes Provider Attestation: The documentation as recorded by the Liseth fuentes accurately reflects the service I personally performed and the decisions made by me, Davon Street MD
[2017-09-30 22:53] LABS: Hematocrit 32 % (35-47); Hemoglobin 10.4 g/dl (12.0-16.0); Mean Corpuscular HGB Conc 32 g/dl (31-36); Mean Corpuscular Hemoglobin 27 pg (27-31); Mean Corpuscular Volume 85 fL (80-97); Mean Platelet Volume 6.6 um3 (7.4-10.4); Platelet Count 298 10^3/ul (150-450); Red Blood Count 3.78 10^6/ul (4.00-5.40); Red Cell Distribution Width 18 % (10.5-15); White Blood Count 11.5 10^3/ul (3.5-10.8)
[2017-09-30 22:55] LABS: ABS Basophils 0.1 10^3/ul (0-0.2); ABS Eosinophils 0.1 10^3/ul (0-0.6); ABS Lymphocytes 0.6 10^3/ul (1.0-4.8); ABS Monocytes 0.5 10^3/ul (0-0.8); ABS Neutrophils 10.1 10^3/ul (1.5-7.7); ABS Nucleated RBC 0 10^3/ul
[2017-09-30 23:06] LABS: EGFR Non-African American 124.3 (>60)
[2017-09-30 23:15] LABS: Eosinophil % 0.7 % (0-6); Lymphocyte % 5.1 % (25-47); Nucleated Red Blood Cells % 0.1
[2017-09-30] MEDS ORDERED: Amoxicillin PO (*) 500 MG CAP PO ONE (23:28)
[2017-09-30] MEDS ORDERED: Azithromycin TAB* 250 MG PO ONE (23:29)
[2017-09-30] MEDS ORDERED: Dexamethasone TAB* 4 MG PO ONE (23:29)
[2017-10-01 00:23] VITALS: BP 93/59
--- NOTE | 2017-10-01 12:19 | RAD ---
INDICATION: Fever COMPARISON: CT of the chest dated June 28, 2017 TECHNIQUE: PA and lateral views of the chest were obtained. FINDINGS: Surgical clips are noted overlying the right axilla. The heart and mediastinum are normal in size and contour. There is asymmetric reticulonodular density overlying the right middle and lower lung that appears to be located posteriorly on the lateral view chest x-ray. There is no evidence of large pleural effusion. Visualized bones are normal for the patient's age. There is no radiographic evidence of free air beneath the diaphragm IMPRESSION: THERE IS DENSITY AT THE POSTERIOR LEFT LOWER LOBE COULD REPRESENT PNEUMONIA OR ATELECTASIS. CONSIDERING THE PATIENT'S NEOPLASTIC HISTORY, MALIGNANCY MUST ALSO BE CONSIDERED. RECOMMEND FOLLOW-UP CHEST X-RAY AFTER APPROPRIATE COURSE OF THERAPY AND/OR FURTHER CHARACTERIZATION WITH CT CLINICALLY WARRANTED. R0
== END 2017-10-01 00:25 | disposition home or self-care (01) ==
LOC: ED 21:41
DX: J18.9 Pneumonia, unspecified organism (principal); R05 Cough; R11.0 Nausea; Z87.891 Personal history of nicotine dependence
CPT/HCPCS: 36415; 71046; 80053; 83605; 84484; 85025; 87040; 93005; 99283; A9270-GY; J8540

== ENCOUNTER 2017-10-05 16:53 | Inpatient (IN) | payer MEDICARE, MEDICAID ==
--- NOTE | 2017-10-05 17:50 | ED ---
Complex/Multi-Sys Presentation - HPI Summary HPI Summary: This patient is a 57 year old F presenting to [facility] with a chief complaint of weakness since her immunotherapy 09/25/17. Pt denies CP, peripheral pedal edema, and abd pain. She endorses intermittent fever, lethargy, cough, SOB upon exertion, and loss of appetite. 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 - History Of Current Complaint Chief Complaint: EDWeakness Time Seen by Provider: 10/05/17 17:36 Hx Obtained From: Patient Onset/Duration: Gradual Onset, Lasting Weeks, Still Present Timing: Constant Severity Currently: Moderate Severity Initially: Moderate Location: Negative Aggravating Factor(s): 09/25/17 immunotherapy Associated Signs And Symptoms: Positive: Weakness, SOB, Cough, Decreased Oral Intake, Fever, Immunocompromised. Negative: Chest Pain, Edema - Allergies/Home Medications Allergies/Adverse Reactions: Allergies Allergy/AdvReac Type Severity Reaction Status Date / Time codeine AdvReac Vomiting Verified 08/28/17 15:32 PMH/Surg Hx/FS Hx/Imm Hx Endocrine/Hematology History: Reports: Other Endocrine/Hematological Disorders - immunotherapy Denies: Hx Diabetes Cardiovascular History: Denies: Hx Hypertension, Hx Pacemaker/ICD Respiratory History: Reports: Hx Chronic Obstructive Pulmonary Disease (COPD), Hx Lung Cancer GI History: Denies: Hx Ileostomy History: Denies: Hx Dialysis, Hx Renal Disease Musculoskeletal History: Reports: Hx Osteoporosis Comment Only: Other Musculoskeletal History - Hx of osteopenia, degenerative bone disease Sensory History: Denies: Hx Contacts or Glasses, Hx Legally Blind, Hx Deafness, Hx Hearing Aid , Hx Hearing Problem Opthamlomology History: Denies: Hx Contacts or Glasses, Hx Legally Blind EENT History: Denies: Hx Deafness Neurological History: Reports: Hx Headaches, Other Neuro Impairments/Disorders - brain cancer Psychiatric History: Reports: Hx Anxiety, Hx Depression Denies: Hx Panic Disorder - Cancer History Cancer Type, Location and Year: Breast cancer, 2005, lung mets, brain mets Hx Chemotherapy: Yes Hx Radiation Therapy: Yes - Surgical History Surgery Procedure, Year, and Place: TONSILECTOMY;. BILAT MASTECTOMY Infectious Disease History: No Infectious Disease History: Denies: Traveled Outside the [place] in Last 30 Days - Family History Known Family History: Negative: Diabetes - Social History Occupation: Disabled Alcohol Use: None Hx Substance Use: No Substance Use Type: Reports: None Hx Tobacco Use: Yes Smoking Status (MU): Former Smoker Type: Cigarettes Length of Time of Smoking/Using Tobacco: 20 years Have You Smoked in the Last Year: No Review of Systems Positive: Fever, Fatigue Negative: Chest Pain Positive: Shortness Of Breath, Cough Positive: Nausea. Negative: Abdominal Pain Positive: no symptoms reported Negative: Edema Positive: Weakness All Other Systems Reviewed And Are Negative: Yes Physical Exam - Summary Physical Exam Summary: Appearance: ill appearing, no pain distress Skin: warm, dry, reflects adequate perfusion, scar in left anterior chest Head/face: normal Eyes: EOMI, ALPHONSO ENT: dry mucous membranes Neck: supple, non-tender Respiratory: CTA, breath sounds present Cardiovascular: RRR, pulses symmetrical Abdomen: non-tender, soft Bowel: present Triage Information Reviewed: Yes Vital Signs On Initial Exam: Initial Vitals Temp Pulse Resp BP Pulse Ox 97.2 F 107 16 97/75 75 10/05/17 17:07 10/05/17 17:07 10/05/17 17:07 10/05/17 17:07 10/05/17 17:07 Vital Signs Reviewed: Yes Diagnostics - Vital Signs Vital Signs Temp Pulse Resp BP Pulse Ox 10/05/17 17:07 97.2 F 107 16 97/75 75 - Laboratory Result Diagrams: 10/05/17 18:03 10/05/17 18:03 Lab Statement: Any lab studies that have been ordered have been reviewed, and results considered in the medical decision making process. - Radiology CXR Xray Interpretation: Positive (See Comments) Radiology Interpretation Completed By: ED Physician - left lower lobe infiltrate. - EKG 1809 Cardiac Rate: Tachycardia - 104 EKG Rhythm: Sinus Tachycardia ST Segment: Normal Ectopy: None EKG Interpretation: No acute changes. Complex Multi-Symp Course/Dx Course Of Treatment: A 57-year-old M presents to the ED with a CC of weakness for 10 days. (+) cough, SOB, intermittent fever, lethargy, and loss of appetite. (-) CP, abd pain, peripheral pedal edema. PMHx breast cancer metastatic to brain and lungs, immunotherapy 09/25/17 aggravated sx. A EKG reveals sinus tachycardia at 104 BPM with no acute changes. An CXR reveals left lower lobe infiltrate. In the ED course, pt was given nl saline.cxr shows pneumonia/positive troponins/dizziness pt will be admitted. - Diagnoses Provider Diagnoses: Dizziness, Pneumonia, Elevated troponin, Cancer, metastatic - Physician Notifications Discussed Care Of Patient With: Cally Chandler Time Discussed With Above Provider: 19:33 Instructed by Provider To: Other - accepts admission Discharge - Sign-Out/Discharge Documenting (check all that apply): Patient Departure - admit - Discharge Plan Condition: Fair Disposition: ADMITTED TO [facility] Referrals: Carrie Kasper [Primary Care Provider] - - Billing Disposition and Condition Condition: FAIR Disposition: Admitted to [facility] - Attestation Statements Document Initiated by Vincent: Yes Documenting Scribe: Stanley Hensley Provider For Whom Vincent is Documenting (Include Credential): Dr. Mariusz Hoover MD Scribe Attestation: Stanley Shin scribed for Dr. Mariusz Hoover MD on 10/05/17 at 1954. Scribe Documentation Reviewed: Yes Provider Attestation: The documentation as recorded by the Stanley fuentes accurately reflects the service I personally performed and the decisions made by me, Dr. Mariusz Hoover MD
[2017-10-05] MEDS ORDERED: NS 0.9% 1000 ML* 1,000 ML IV ONE (17:54)
[2017-10-05 18:15] LABS: Hematocrit 33 % (35-47); Hemoglobin 10.7 g/dl (12.0-16.0); Mean Corpuscular HGB Conc 33 g/dl (31-36); Mean Corpuscular Hemoglobin 28 pg (27-31); Mean Corpuscular Volume 85 fL (80-97); Mean Platelet Volume 6.9 um3 (7.4-10.4); Platelet Count 389 10^3/ul (150-450); Red Blood Count 3.87 10^6/ul (4.00-5.40); Red Cell Distribution Width 18 % (10.5-15); White Blood Count 13.5 10^3/ul (3.5-10.8)
[2017-10-05 18:24] LABS: INR 1.12 (0.77-1.02)
[2017-10-05 18:32] LABS: EGFR Non-African American 101.1 (>60)
[2017-10-05 18:45] LABS: ABS Basophils 0.1 10^3/ul (0-0.2); ABS Eosinophils 0.1 10^3/ul (0-0.6); ABS Lymphocytes 0.6 10^3/ul (1.0-4.8); ABS Neutrophils 11.8 10^3/ul (1.5-7.7); ABS Nucleated RBC 0 10^3/ul; Eosinophil % 0.8 % (0-6); Lymphocyte % 4.2 % (25-47); Nucleated Red Blood Cells % 0.1
[2017-10-05] MEDS ORDERED: Potassium Chlor TAB* 20 MEQ TAB.ER PO ONE (19:16)
[2017-10-05] MEDS ORDERED: Aspirin TAB* 325 MG PO ONE ×2 (19:24→19:28)
[2017-10-05] MEDS ORDERED: Piperacillin/Tazobac ADVAN(*) 3.375 GM in NS 0.9% 100 ML* 100 ML IVPB ONE ×2 (19:34→20:16)
[2017-10-05] MEDS ORDERED: Albuterol HFA INHALER* 8 gm MDI INH PRN (20:17)
[2017-10-05] MEDS ORDERED: Albuterol/Ipratropium NEB.SOL* Albuterol 2.5 MG/Ipratropium 0.5 MG 3 ML INH PRN (20:19)
[2017-10-05] MEDS ORDERED: Morphine INJ* 2 MG/ML 1 ML SYRINGE (TWO MG - NEW SYRINGE VERSION) IV PRN (20:20)
[2017-10-05] MEDS ORDERED: Temazepam CAP* 15 MG PO PRN (20:20)
[2017-10-05] MEDS ORDERED: Iodixanol* (CONTRAST) 320 MG/ML 100 ML SDV IV ONE (20:32)
[2017-10-05] MEDS ORDERED: Zosyn per Pharmacy* NOTE FOLLOW UP SCH (21:00)
[2017-10-05] MEDS ORDERED: Heparin VIAL(*) 5000 UNITS/ML VIAL (FIVE THOUSAND) SUBCUT SCH (22:00)
--- NOTE | 2017-10-05 22:09 | RAD ---
EXAM: CT Angiography Chest With Intravenous Contrast CLINICAL HISTORY: 57 years old, female; Signs and symptoms; Shortness of breath; Prior surgery; Surgery date: 6+ months; Surgery type: Double mastectomy; Additional info: R/O pe, hypoxemia, elev troponin, h/o lung ca TECHNIQUE: Axial computed tomographic angiography images of the chest with intravenous contrast using pulmonary embolism protocol. All CT scans at this facility use at least one of these dose optimization techniques: automated exposure control; mA and/or kV adjustment per patient size (includes targeted exams where dose is matched to clinical indication); or iterative reconstruction. MIP reconstructed images were created and reviewed. Coronal and sagittal reformatted images were created and reviewed. CONTRAST: 67 mL of VISI 320 administered intravenously. COMPARISON: CTA CHEST CTA CHEST 06/28/2017 3:23 PM FINDINGS: Pulmonary arteries: Pulmonary embolism of the right main pulmonary artery and extending into all the segments of the right lower lobe and upper lobe. There is bowing of the interventricular septum to the left representing right ventricular strain. Aorta: No acute findings. No thoracic aortic aneurysm. Lungs: There is diffuse groundglass opacification in the left upper and lower lobes. Etiology can be infectious/inflammatory/edema. There is mild diffuse groundglass haziness in the right lower lobe. There is a right suprahilar/hilar mass measuring 2.8 x 3.5 cm not significantly changed from prior examination of 06/28/2017. There is mass effect of the suprahilar mass on the right pulmonary arteries. Pleural space: Small left pleural effusion. Mild atelectasis at left lung base. No pneumothorax. Heart: Unremarkable. No cardiomegaly. No significant pericardial effusion. No evidence of RV dysfunction. Bones/joints: No acute fracture. No dislocation. Soft tissues: Unremarkable. Lymph nodes: Enlarged pretracheal lymph node measuring 1.6 cm in short axis slightly smaller than before when it measured 2 cm. Gallbladder and bile ducts: Cholelithiasis. Other findings: A spiculated 2.3 cm lesion in the right apex unchanged from prior IMPRESSION: Right main pulmonary artery embolism extending into all the segments of the right lower lobe and upper lobe. Bowing of the interventricular septum to the left representing right ventricular strain. Diffuse groundglass opacification of the left upper and lower lobes.There is mild haziness of the right lower lobe. Etiology could be infectious/inflammatory/edema. Right suprahilar mass with no significant change as compared to prior. Mediastinal lymph nodes slightly smaller as compared to prior. Small left pleural effusion with mild atelectasis at left lung base.
[2017-10-05] MEDS: Acetaminophen TAB* 325 MG PO PRN (22:19)
--- NOTE | 2017-10-05 22:57 | HP ---
CC: Dr. Carrie Kasper; Dr. Otoole from Radiation Oncology; Dr. Lombardo from Oncology * HISTORY AND PHYSICAL: DATE OF ADMISSION: 10/05/17 PRIMARY CARE PROVIDER: Dr. Carrie Kasper. RADIATION ONCOLOGY: Dr. Otoole. ONCOLOGY: Dr. Lombardo. CHIEF COMPLAINT: "Very weak." HISTORY OF PRESENT ILLNESS: Jordana Hurst is an unfortunate 57-year-old female who was just recently diagnosed with metastatic lung cancer with metastasis to the brain, status post resection of the masses in July of 2017, who presented complaining of generalized weakness. The patient denies any pain. She stated that she gets short of breath whenever she tries to do any activity. She stated also that her appetite is minimal and she lost 30 pounds ever since the diagnosis of cancer. Upon evaluation in the emergency department, her oxygen saturations were in the 70s when she came in on room air. Her troponin is 0.3, but she denies any pain. She is going to be admitted with diagnosis of hypoxemia, elevated troponin. Further investigation during the hospital stay will include CT angiogram of the chest to rule out PE. PAST MEDICAL HISTORY: 1. History of non-small cell lung cancer in the right upper lobe encasing the right upper lobe arteries, veins, and airways and resulting in right upper lobe airway stenosis. The mass extended into the right hilum and mediastinum with 70 % compression of the right mainstem bronchus and bronchus intermedius. That was noted in June of 2017. The cancer was noted to be metastatic to the brain and on 07/14/17, the patient underwent right occipital craniotomy for resection of two cerebral metastases. Postoperatively, she had had poor gait and left- sided weakness and had been using walker. The patient currently is undergoing chemotherapy for the above mentioned. The last one was reported on 09/25/17. 2. Recently diagnosed pneumonia, prescribed amoxicillin and azithromycin on after an ED visit. 3. History of breast cancer in 2005, status post bilateral mastectomy and chemotherapy as well as radiation. 4. History of COPD, not oxygen dependent. 5. History of anxiety. 6. History of depression. 7. History of gastroesophageal reflux disease. CURRENT MEDICATIONS: Include: 1. Oxycodone 5 mg every 6 hours p.r.n. 2. Vitamin B 1 tablet daily. 3. Omeprazole 40 mg daily. 4. Asmanex 220 mcg 2 puffs inhalation q.p.m. 5. Lexapro 20 mg daily. 6. Vitamin D3 of 5000 units daily. 7. Zyrtec 10 mg daily. 8. Azithromycin 250 mg daily that was started on 09/30/17. 9. Amoxicillin 500 mg 3 times a day, started on 09/30/17. 10. Albuterol inhaler 2 puffs every 6 hours p.r.n. 11. Xanax 1 mg 3 times a day p.r.n. ALLERGIES: CODEINE. FAMILY HISTORY: Positive for mother with glioblastoma who in her 50s. Father's sister also with glioblastoma multiforme. There was breast cancer history in maternal aunt. SOCIAL HISTORY: The patient currently lives with her son. 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 She is on disability for anxiety. She has history of smoking for a total of 20 years quitting several months ago. She denies any alcohol or drug use. As her surrogate, she names her sister, Jennifer Burrows. REVIEW OF SYSTEMS: Please see history of present illness. The patient admits to occasional cough. Denies hemoptysis. Denies purulent sputum production. The patient admits to 30-pound weight loss since June of 2017 and poor appetite. Denies abdominal pain or constipation. The patient has no urinary symptoms. The patient denies shortness of breath or chest pain. Remaining 14 systems reviewed with the patient and were otherwise negative. PHYSICAL EXAMINATION GENERAL: This is a very pleasant 57-year-old female who is in no acute distress. Alert, awake, and oriented x3. VITAL SIGNS: Blood pressure of 92/59, heart rate of 104 and regular, respiratory rate 93, oxygen saturation 91% on 4 L of oxygen nasal cannula, temperature of 97.2. HEENT: Head: Atraumatic, normocephalic. Eyes: Pupils are equal and reactive to light and accommodation. Oropharynx clear. Mucosa moist. NECK: Supple. No JVD, no bruit bilaterally. There is fullness to palpation in the supraclavicular region at the base of the patient's neck. The patient is unsure how long the fullness had been here for and may have been due to lipoma. There is no adenopathy noted. The area is not tender to palpation. RESPIRATORY: Crackles at the left lung base, otherwise clear. CARDIOVASCULAR: Regular rate and rhythm, no murmur. ABDOMEN: Soft, nontender. Bowel sounds present in all 4 quadrants. EXTREMITIES: There is no edema. Pulses +2 bilaterally. No clubbing or cyanosis. NEUROLOGIC: Speech clear. Cranial nerves II through XII grossly intact. Motor strength is 5/5 in bilateral upper extremities and strength is decreased minimally in the left lower extremity at 4+/5. SKIN: On evaluation of the skin, no ecchymotic areas or rashes noted. PSYCHIATRIC: Oriented x3 with no evidence of anxiety or depression. DIAGNOSTIC STUDIES/LAB DATA: Laboratory data showed a white blood cell count of 13.5, hemoglobin of 10.7, hematocrit of 33, and platelets of 389. ABG on room air showed pH of 7.48, pCO2 of 30, pO2 of 63, bicarb of 24. Sodium was 136, potassium 3.2, chloride 101, carbon dioxide 25, BUN 16, creatinine 0.61. Liver function tests unremarkable apart from chronic elevation of alkaline phosphatase of 307. Magnesium was 1.7. Troponin was 0.33. Brain natriuretic peptide was 260. Portable chest x-ray shows vascular congestion in the entire left leg. The official radiology report is pending at the time of the dictation. CT angiogram of the chest is pending at the time of dictation. The patient's EKG showed sinus tachycardia with heart rate of 104 beats per minute with negative T waves in leads III and aVF and otherwise flattening of T waves throughout. Comparing with an EKG from 09/30/17, the specific changes are unchanged, although the patient's QRS currently appears to be of a lower amplitude and T waves are flattened currently, which they were not before. ASSESSMENT AND PLAN: 1. In regards to the patient's hypoxemia, the patient does have some vascular congestion noted in the left lung. At this point, differential includes pneumonia that could have been partially treated with Asmanex, amoxicillin, and azithromycin as outpatient versus pulmonary embolism versus chronic obstructive pulmonary disease exacerbation, although the patient does not have wheezes on evaluation. At this point, the patient is going to have a CT angiogram of the chest obtained to rule out PE. She is going to be placed on Zosyn. Sputum cultures as well as Legionella antigen and urine Legionella antigen and Streptococcus urine antigen is going to be obtained. The patient is going to be placed on gentle intravenous hydration. 2. In regards to the patient's elevated troponin, she has several EKG changes. I worried that the patient may have either pericardial effusion or involvement of the mediastinal mass into the cardiac area. At this point, transthoracic echocardiogram is going to be obtained in the morning. The patient did not have any chest pain. We will follow up the patient's troponins for the time being. 3. In regards to patient's chronic obstructive pulmonary disease, does not appear to be in exacerbation. Her current medications at home are going to be continued with an addition of DuoNeb on a p.r.n. basis. 4. For the patient's hypokalemia, she is going to be placed p.o. as well as with IV fluids. 5. For DVT prophylaxis, the patient is going to be placed on heparin subcutaneously. 6. The patient's code status is full. Her surrogate is her sister as mentioned above. TIME SPENT: Approximately 70 minutes was spent on admission of this patient, more than half of that time was spent [id number] with the patient during the interview and physical exam. [id number]/[facility] #: [id number] JEAN
--- NOTE | 2017-10-05 22:58 | PN ---
Progress Note - Progress Note Date of Service: 10/05/17 Note: CTA showed larger R sided PE and indications of RV strain. Pt feels well, denies CP, SOB. started heparin gtt. Informed to of potential risks of bleeding specifically ICH in this pt with h/o recent craniotomy. TPA tx is contraindicated in this pt with recent craniotomy in 07/2017
[2017-10-06 00:23] LABS: EGFR Non-African American 101.1 (>60)
[2017-10-06 00:29] LABS: ABS Basophils 0.1 10^3/ul (0-0.2); ABS Eosinophils 0.1 10^3/ul (0-0.6); ABS Lymphocytes 0.6 10^3/ul (1.0-4.8); ABS Monocytes 0.7 10^3/ul (0-0.8); ABS Neutrophils 8.3 10^3/ul (1.5-7.7); ABS Nucleated RBC 0 10^3/ul; Hematocrit 28 % (35-47); Hemoglobin 9.3 g/dl (12.0-16.0); Lymphocyte % 6.3 % (25-47); Mean Corpuscular HGB Conc 33 g/dl (31-36); Mean Corpuscular Hemoglobin 28 pg (27-31); Mean Corpuscular Volume 84 fL (80-97); Mean Platelet Volume 6.7 um3 (7.4-10.4); Nucleated Red Blood Cells % 0; Platelet Count 326 10^3/ul (150-450); Red Blood Count 3.34 10^6/ul (4.00-5.40); Red Cell Distribution Width 18 % (10.5-15); White Blood Count 9.8 10^3/ul (3.5-10.8)
[2017-10-06] MEDS: ZOSYN 3.375 GM Q8H per EXTENDED INFUSION IVPB SCH ×8 (00:40→23:42)
[2017-10-06] MEDS: Heparin VIAL(*) 5000 UNITS/ML VIAL (FIVE THOUSAND) IV PRN ×3 (00:42→22:08)
[2017-10-06] MEDS: Heparin DRIP 25,000 UNITS(*) 25,000 UNITS/500 ML BAG IV SCH ×2 (00:43→22:10)
[2017-10-06] MEDS ORDERED: Magnesium Sulfate 1 GM IV* 1 GM/100 ML BAG IV ONE (01:03)
[2017-10-06] MEDS: NS 0.9% w/ 20 Meq KCL 1000 ML* 1,000 ML IV SCH ×2 (01:33→19:53)
[2017-10-06 04:16] LABS: Urine Appearance Clear; Urine Blood 1+ (Negative); Urine Color Yellow; Urine Ketones Negative (Negative); Urine Protein 1+(30 mg/dL) (Negative); Urine Red Blood Cell 3+(>10/hpf) (Absent); Urine Specific Gravity 1.053 (1.010-1.030); Urine Urobilinogen Negative (Negative); Urine White Blood Cell 1+(6-10/hpf) (Absent)
[2017-10-06 07:11] LABS: ABS Basophils 0.1 10^3/ul (0-0.2); ABS Eosinophils 0.2 10^3/ul (0-0.6); ABS Lymphocytes 0.6 10^3/ul (1.0-4.8); ABS Monocytes 0.8 10^3/ul (0-0.8); ABS Nucleated RBC 0 10^3/ul; Eosinophil % 1.6 % (0-6); Hematocrit 31 % (35-47); Hemoglobin 10.1 g/dl (12.0-16.0); Lymphocyte % 5.3 % (25-47); Mean Corpuscular HGB Conc 32 g/dl (31-36); Mean Corpuscular Hemoglobin 27 pg (27-31); Mean Corpuscular Volume 85 fL (80-97); Mean Platelet Volume 6.9 um3 (7.4-10.4); Nucleated Red Blood Cells % 0; Platelet Count 350 10^3/ul (150-450); Red Blood Count 3.69 10^6/ul (4.00-5.40); Red Cell Distribution Width 18 % (10.5-15); White Blood Count 11.7 10^3/ul (3.5-10.8)
[2017-10-06 07:22] LABS: EGFR Non-African American 99.2 (>60)
--- NOTE | 2017-10-06 07:26 | RAD ---
INDICATION: Weakness COMPARISON: Chest x-ray September 30, 2017; chest x-ray June 28, 2017 TECHNIQUE: An AP portable view obtained at 1817 hours is submitted. FINDINGS: Bones/Soft Tissues: There are no acute bony findings. There is a mild scoliotic deformity Cardiomediastinal: The cardiomediastinal silhouette is normal. Lungs: There is airspace disease in left lung base stable relative to the most recent examination but new when compared to the June 28, 2017 examination. Suggest continued follow-up. Pleura: There are no pleural effusions. Other: None IMPRESSION: STABLE LEFT BASILAR ABNORMALITIES. SUGGEST CONTINUED FOLLOW-UP TO DOCUMENT COMPLETE RESOLUTION.PLEASE REFER ALSO TO CTA CHEST FROM SAME DATE. R1
[2017-10-06] MEDS: Cholecalciferol TAB* 1000 UNITS PO SCH (08:23)
[2017-10-06] MEDS: Vitamin B Complex TAB PO SCH (08:24)
[2017-10-06] MEDS: Omeprazole CAP* 20 MG PO SCH (08:24)
[2017-10-06] MEDS: Citalopram TAB* 40 MG PO SCH (08:24)
[2017-10-06] MEDS: ALPRAZolam TAB* 0.5 MG PO PRN (08:30)
[2017-10-06] MEDS: Acetaminophen TAB* 325 MG PO PRN ×3 (08:43→22:57)
--- NOTE | 2017-10-06 09:25 | ECHO ---
Patient: ABENA HICKS [facility] Rec#: [id number] : 1960 Date: 10/06/2017 Age: 57y Height: 162.56 cm / 64.0 in Weight: 63.5 kg / 140.0 lbs Sex: F BSA: 1.68 Room#: 442 Admit Date#: 10/05/2017 Type: Inpatient Referring: Cally Chandler MD Reading: Mohit Humphrey DO Plant Maintenance Supervisor: Fanta Rios RDCS CC: Carrie Kasper CC: Donald Lombardo MD Transthoracic Echocardiogram Indication: ACS //SOB BP: 82/49 HR: 100 Rhythm: Tachycardia Findings History: Breast cancer s/p bilateral mastectomies and radation, s/p craniotomy due to mets with chemo rx,COPD,GERD. Technical Comments: The study quality is good. Completed at 0850. Left Ventricle: The left ventricular chamber size is normal. There is no left ventricular hypertrophy. Global left ventricular wall motion and contractility are within normal limits. There is normal left ventricular systolic function. The estimated ejection fraction is 55-60%. There is septal flattening of the interventricular septum consistent with right ventricular volume or pressure overload. There is no consistent Doppler evidence of clinically significant diastolic dysfunction. Left Atrium: The left atrial chamber size is normal. Right Ventricle: The right ventricle is moderately dilated. The right ventricular global systolic function is moderately reduced. Right Atrium: The right atrial cavity size is normal. Aortic Valve: The aortic valve is trileaflet. There is no evidence of aortic valve thickening. There is mild aortic regurgitation. There is no evidence of aortic stenosis. Mitral Valve: The mitral valve leaflets are mildly thickened. There is mild mitral regurgitation. There is no evidence of mitral stenosis. Tricuspid Valve: The tricuspid valve leaflets are normal. There is mild tricuspid regurgitation. There is evidence of mild to moderate pulmonary hypertension. There is no tricuspid stenosis. Pulmonic Valve: The pulmonic valve appears normal. There is mild pulmonic regurgitation. There is no pulmonic stenosis. Pericardium: There is no significant pericardial effusion. Aorta: There is no dilatation of the ascending aorta. The aortic arch is not well visualized. There is no dilation of the aortic root. Pulmonary Artery: The main pulmonary artery is not well visualized. Venous: The inferior vena cava appears normal in size. There is a greater than 50% respiratory change in the inferior vena cava dimension. Conclusions The left ventricular chamber size is normal. There is no left ventricular hypertrophy. There is normal left ventricular systolic function. The estimated ejection fraction is 55-60%. The left atrial chamber size is normal. There is septal flattening of the interventricular septum consistent with right ventricular volume or pressure overload. The right ventricle is moderately dilated. The right ventricular global systolic function is moderately reduced. There is mild tricuspid regurgitation. There is evidence of mild to moderate pulmonary hypertension. There is no significant pericardial effusion. None prior for comparison at time of interpretation. Results of the study were discussed with Dr. Hayes by phone at time of interpretation. Measurements Name Value Normal Range RVIDd (AP) 2D 2.9 cm (0.9 - 2.6) RVDdMajor (2D) 3.4 cm (2.2 - 4.4) RAd ISD 4CH 4.8 cm (3.4 - 4.9) RA (A4C)W 3.5 cm (2.9 - 4.6) IVSd (2D) 0.7 cm (0.6 - 1) LVPWd (2D) 1 cm (0.6 - 1) LVIDs (2D) 2.4 cm - LV FS (2D) 25 % (25 - 45) Aortic Annulus 1.9 cm (1.4 - 2.6) Ao root diameter (2D) 3.1 cm (2.1 - 3.5) Ascending Ao 2.8 cm (2.1 - 3.4) LA dimension (AP) 2D 3 cm (2.3 - 3.8) LAd ISD 4CH 5.3 cm (2.9 - 5.3) LA ISD 4CH W 3.1 cm (2.5 - 4.5) Name Value Normal Range LA ESV SP 4CH (A/L) 40 ml - LA ESV SP 2CH (A/L) 39 ml - LA ESV BP (A/L) 41 ml - LA ESV BP (A/L) index 24.35 ml/m2 - LA ESV SP 4CH (MOD) 37 ml - LA ESV SP 2CH (MOD) 38 ml - Name Value Normal Range MV E-wave Vmax 0.8 m/sec - MV deceleration time 164 msec - MV A-wave Vmax 0.9 m/sec - MV E:A ratio 0.82 ratio - LV septal e' Vmax 0.1 m/sec - LV lateral e' Vmax 0.11 m/sec - LV E:e' septal ratio 8 ratio - LV E:e' lateral ratio 7.27 ratio - Name Value Normal Range AV Vmax 1.4 m/sec - AV VTI 24.2 cm - AV peak gradient 8.15 mmHg - AV mean gradient 3.91 mmHg - LVOT Vmax 1.3 m/sec - LVOT VTI 22.6 cm - LVOT peak gradient 7.08 mmHg - LVOT mean gradient 3.33 mmHg - AR PHT 363 msec - AR peak gradient 63.87 mmHg - Name Value Normal Range MR Vmax 3.5 m/sec - MR VTI 105 cm - Name Value Normal Range TR Vmax 3.3 m/sec - TR peak gradient 43 mmHg - RAP 3 mmHg - RVSP 46 mmHg - IVC diameter 1 cm - Name Value Normal Range PV Vmax 0.9 m/sec - PV peak gradient 3.56 mmHg -
--- NOTE | 2017-10-06 11:05 | PN ---
Progress Note - Progress Note Date of Service: 10/06/17 SOAP: Subjective: [Patient reports feeling somewhat better this am. Quite fatigued. No dyspnea or CP at rest. Able to ambulate to the bathroom without symptoms. No c/o CHRISTENSEN, numbness, tingling or weakness. No abd pain, n/v/d.] Objective: [ Laboratory Results - last 24 hr 10/05/17 10/05/17 10/05/17 18:03 18:03 18:03 WBC 13.5 H RBC 3.87 L Hgb 10.7 L Hct 33 L MCV 85 MCH 28 MCHC 33 RDW 18 H Plt Count 389 MPV 6.9 L Neut % (Auto) 87.2 H Lymph % (Auto) 4.2 L [place] % (Auto) 7.3 H Eos % (Auto) 0.8 Baso % (Auto) 0.5 Absolute Neuts (auto) 11.8 H Absolute Lymphs (auto) 0.6 L Absolute Monos (auto) 1.0 H Absolute Eos (auto) 0.1 Absolute Basos (auto) 0.1 Absolute Nucleated RBC 0 Nucleated RBC % 0.1 INR (Anticoag Therapy) 1.12 H APTT 27.2 Patient Temperature ABG pH ABG pH (Temp Correct) ABG pCO2 ABG pCO2 (Temp Corrct ABG pO2 ABG pO2 (Temp Correct ABG HCO3 ABG O2 Saturation ABG Base Excess Respiration Rate O2 Delivery Device Ventilator Type Vent Mode FiO2 Inspiratory Time PEEP Pressure Support Pressure Control EPAP IPAP BiPAP Sodium 136 Potassium 3.2 L Chloride 101 Carbon Dioxide 25 Anion Gap 10 BUN 16 Creatinine 0.61 Est GFR ( Amer) 122.3 Est GFR (Non-Af Amer) 101.1 BUN/Creatinine Ratio 26.2 H Glucose 120 H Lactic Acid Calcium 8.9 Magnesium 1.7 L Total Bilirubin 0.50 AST 15 ALT 35 Alkaline Phosphatase 307 H Total Creatine Kinase 17 Troponin I 0.33 H* B-Natriuretic Peptide Total Protein 6.2 L Albumin 2.8 L Globulin 3.4 Albumin/Globulin Ratio 0.8 L Urine Color Urine Appearance Urine pH Ur Specific [place] Urine Protein Urine Ketones Urine Blood Urine Nitrate Urine Bilirubin Urine Urobilinogen Ur Leukocyte Esterase Urine WBC (Auto) Urine RBC (Auto) Ur Squamous Epith Cells Urine Bacteria Urine Glucose 10/05/17 10/05/17 10/05/17 18:03 18:03 18:40 WBC RBC Hgb Hct MCV MCH MCHC RDW Plt Count MPV Neut % (Auto) Lymph % (Auto) [place] % (Auto) Eos % (Auto) Baso % (Auto) Absolute Neuts (auto) Absolute Lymphs (auto) Absolute Monos (auto) Absolute Eos (auto) Absolute Basos (auto) Absolute Nucleated RBC Nucleated RBC % INR (Anticoag Therapy) APTT Patient Temperature Not Reportable ABG pH 7.48 H ABG pH (Temp Correct) Not Reportable ABG pCO2 30 L ABG pCO2 (Temp Corrct Not Reportable ABG pO2 63 L ABG pO2 (Temp Correct Not Reportable ABG HCO3 24.3 ABG O2 Saturation 94.5 L ABG Base Excess -0.6 Respiration Rate Not Reportable O2 Delivery Device n/c Ventilator Type Not Reportable Vent Mode Not Reportable FiO2 32 Inspiratory Time Not Reportable PEEP Not Reportable Pressure Support Not Reportable Pressure Control Not Reportable EPAP Not Reportable IPAP Not Reportable BiPAP Not Reportable Sodium Potassium Chloride Carbon Dioxide Anion Gap BUN Creatinine Est GFR ( Amer) Est GFR (Non-Af Amer) BUN/Creatinine Ratio Glucose Lactic Acid 1.8 Calcium Magnesium Total Bilirubin AST ALT Alkaline Phosphatase Total Creatine Kinase Troponin I B-Natriuretic Peptide 260 H Total Protein Albumin Globulin Albumin/Globulin Ratio Urine Color Urine Appearance Urine pH Ur Specific [place] Urine Protein Urine Ketones Urine Blood Urine Nitrate Urine Bilirubin Urine Urobilinogen Ur Leukocyte Esterase Urine WBC (Auto) Urine RBC (Auto) Ur Squamous Epith Cells Urine Bacteria Urine Glucose 10/05/17 10/05/17 10/05/17 23:57 23:57 23:57 WBC 9.8 RBC 3.34 L Hgb 9.3 L Hct 28 L MCV 84 MCH 28 MCHC 33 RDW 18 H Plt Count 326 MPV 6.7 L Neut % (Auto) 84.6 H Lymph % (Auto) 6.3 L [place] % (Auto) 7.3 H Eos % (Auto) 1.0 Baso % (Auto) 0.8 Absolute Neuts (auto) 8.3 H Absolute Lymphs (auto) 0.6 L Absolute Monos (auto) 0.7 Absolute Eos (auto) 0.1 Absolute Basos (auto) 0.1 Absolute Nucleated RBC 0 Nucleated RBC % 0 INR (Anticoag Therapy) APTT 26.8 Patient Temperature ABG pH ABG pH (Temp Correct) ABG pCO2 ABG pCO2 (Temp Corrct ABG pO2 ABG pO2 (Temp Correct ABG HCO3 ABG O2 Saturation ABG Base Excess Respiration Rate O2 Delivery Device Ventilator Type Vent Mode FiO2 Inspiratory Time PEEP Pressure Support Pressure Control EPAP IPAP BiPAP Sodium Potassium Chloride Carbon Dioxide Anion Gap BUN 15 Creatinine 0.61 Est GFR ( Amer) 122.3 Est GFR (Non-Af Amer) 101.1 BUN/Creatinine Ratio Glucose Lactic Acid Calcium Magnesium Total Bilirubin AST ALT Alkaline Phosphatase Total Creatine Kinase Troponin I 0.20 H* B-Natriuretic Peptide Total Protein Albumin Globulin Albumin/Globulin Ratio Urine Color Urine Appearance Urine pH Ur Specific [place] Urine Protein Urine Ketones Urine Blood Urine Nitrate Urine Bilirubin Urine Urobilinogen Ur Leukocyte Esterase Urine WBC (Auto) Urine RBC (Auto) Ur Squamous Epith Cells Urine Bacteria Urine Glucose 10/06/17 10/06/17 10/06/17 03:55 07:00 07:00 WBC 11.7 H RBC 3.69 L Hgb 10.1 L Hct 31 L MCV 85 MCH 27 MCHC 32 RDW 18 H Plt Count 350 MPV 6.9 L Neut % (Auto) 85.4 H Lymph % (Auto) 5.3 L [place] % (Auto) 7.2 H Eos % (Auto) 1.6 Baso % (Auto) 0.5 Absolute Neuts (auto) 10.0 H Absolute Lymphs (auto) 0.6 L Absolute Monos (auto) 0.8 Absolute Eos (auto) 0.2 Absolute Basos (auto) 0.1 Absolute Nucleated RBC 0 Nucleated RBC % 0 INR (Anticoag Therapy) APTT Patient Temperature ABG pH ABG pH (Temp Correct) ABG pCO2 ABG pCO2 (Temp Corrct ABG pO2 ABG pO2 (Temp Correct ABG HCO3 ABG O2 Saturation ABG Base Excess Respiration Rate O2 Delivery Device Ventilator Type Vent Mode FiO2 Inspiratory Time PEEP Pressure Support Pressure Control EPAP IPAP BiPAP Sodium 137 Potassium 3.7 Chloride 105 Carbon Dioxide 23 Anion Gap 9 BUN 15 Creatinine 0.62 Est GFR ( Amer) 120.1 Est GFR (Non-Af Amer) 99.2 BUN/Creatinine Ratio 24.2 H Glucose 111 H Lactic Acid Calcium 8.7 Magnesium Total Bilirubin AST ALT Alkaline Phosphatase Total Creatine Kinase Troponin I B-Natriuretic Peptide Total Protein Albumin Globulin Albumin/Globulin Ratio Urine Color Yellow Urine Appearance Clear Urine pH 5.0 Ur Specific [place] 1.053 H Urine Protein 1+(30 mg/dl) A Urine Ketones Negative Urine Blood 1+ A Urine Nitrate Negative Urine Bilirubin Negative Urine Urobilinogen Negative Ur Leukocyte Esterase Negative Urine WBC (Auto) 1+(6-10/hpf) A Urine RBC (Auto) 3+(>10/hpf) A Ur Squamous Epith Cells Present A Urine Bacteria Absent Urine Glucose Negative 10/06/17 07:00 WBC RBC Hgb Hct MCV MCH MCHC RDW Plt Count MPV Neut % (Auto) Lymph % (Auto) [place] % (Auto) Eos % (Auto) Baso % (Auto) Absolute Neuts (auto) Absolute Lymphs (auto) Absolute Monos (auto) Absolute Eos (auto) Absolute Basos (auto) Absolute Nucleated RBC Nucleated RBC % INR (Anticoag Therapy) APTT 57.7 H Patient Temperature ABG pH ABG pH (Temp Correct) ABG pCO2 ABG pCO2 (Temp Corrct ABG pO2 ABG pO2 (Temp Correct ABG HCO3 ABG O2 Saturation ABG Base Excess Respiration Rate O2 Delivery Device Ventilator Type Vent Mode FiO2 Inspiratory Time PEEP Pressure Support Pressure Control EPAP IPAP BiPAP Sodium Potassium Chloride Carbon Dioxide Anion Gap BUN Creatinine Est GFR ( Amer) Est GFR (Non-Af Amer) BUN/Creatinine Ratio Glucose Lactic Acid Calcium Magnesium Total Bilirubin AST ALT Alkaline Phosphatase Total Creatine Kinase Troponin I B-Natriuretic Peptide Total Protein Albumin Globulin Albumin/Globulin Ratio Urine Color Urine Appearance Urine pH Ur Specific [place] Urine Protein Urine Ketones Urine Blood Urine Nitrate Urine Bilirubin Urine Urobilinogen Ur Leukocyte Esterase Urine WBC (Auto) Urine RBC (Auto) Ur Squamous Epith Cells Urine Bacteria Urine Glucose Acetaminophen (Tylenol Tab*) 650 mg PO Q4H PRN PRN Reason: FEVER/PAIN Last Admin: 10/06/17 08:43 Dose: 650 mg Albuterol (Ventolin Hfa Inhaler*) 2 puff INH Q6H PRN PRN Reason: SOB/WHEEZING Albuterol/Ipratropium (Duoneb (Albuterol 2.5 Mg/Ipratropium 0.5 Mg)) 1 neb INH Q4H PRN PRN Reason: SOB/WHEEZING Alprazolam (Xanax Tab*) 1 mg PO TID PRN PRN Reason: ANXIETY Last Admin: 10/06/17 08:30 Dose: 1 mg Cholecalciferol (Vitamin D Tab*) 5,000 units PO DAILY [facility] Last Admin: 10/06/17 08:23 Dose: 5,000 units Citalopram Hydrobromide (Celexa Tab*) 40 mg PO DAILY [facility] Last Admin: 10/06/17 08:24 Dose: 40 mg Heparin Sodium (Porcine) (Heparin Vial(*)) 0 - 4,800 units IV .SEE PROTOCOL PRN PRN Reason: SLIDING SCALE Last Admin: 10/06/17 00:42 Dose: 4,800 units Potassium Chloride/Sodium Chloride (Ns 0.9% W/ 20 Meq Kcl 1000 Ml*) 1,000 mls @ 75 mls/hr IV PER RATE [facility] Last Admin: 10/06/17 01:33 Dose: 75 mls/hr Piperacillin Sod/Tazobactam (Sod 3.375 gm/ Sodium Chloride) 100 mls @ 25 mls/ hr IVPB Q8H [facility] Last Admin: 10/06/17 08:23 Dose: 25 mls/hr Heparin Sodium/Dextrose (Heparin Drip 25,000 Units(*)) 25,000 units in 500 mls @ 0 mls/hr IV PER RATE [facility]; Protocol Last Admin: 10/06/17 00:43 Dose: 23 mls/hr Morphine Sulfate (Morphine Inj ((Syringe))*) 1 mg IV Q4H PRN PRN Reason: PAIN - MILD Omeprazole (Prilosec Cap*) 40 mg PO DAILY@0730 [facility] Last Admin: 10/06/17 08:24 Dose: 40 mg Oxycodone HCl (Roxycodone Tab*) 5 mg PO Q6H PRN PRN Reason: PAIN - MODERATE TO SEVERE Pharmacy Consult (Zosyn Per Pharmacy*) 1 note FOLLOW UP .ZOSYN PER PHARMACY [facility] Temazepam (Restoril Cap*) 15 mg PO BEDTIME PRN PRN Reason: INSOMNIA Vitamin B Complex/Vitamin E (B Complex-50*) 1 tab PO DAILY [facility] Last Admin: 10/06/17 08:24 Dose: 1 tab Vital Signs: Temp Pulse Resp BP Pulse Ox 97.5 F 91 18 82/49 89 10/06/17 02:58 10/06/17 02:58 10/06/17 10:07 10/06/17 02:58 10/06/17 02:58 Exam: Gen: Chronically ill appearing 57 yo female who appears fatigued but in NAD HEENT: MMM CV: RRR, no m/r/g Resp: CTA, no w/c/r Abd: soft, non TTP Ext: no edema] Assessment: [57 yo female with 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 She presented with persistent fevers and increased SOB after treatment for a PNA who was found to have a persistent infiltrate on CT and large R sided PE with associated RV strain. No on a heparin drip.] Plan: [1. PE - no eligible for TPA due to craniotomy earlier this summer - cont heparin drip for 24-48 hrs - if stable, can then transition to Lovenox 1 mg/kg bid and discharged home with 1.5 mg/kg qd - hypoxic and hypotensive, but asx at rest - RV strain with mild-mod RV dysfunction on echo 2. PNA - L sided infiltrate appreciated on CT - cont Zosyn 3. NSCLC with brain mets - C1D1 pembrolizumab 09/25/17 - s/p decompressive craniotomy and whole brain XRT - neuro checks q 4h during 1st 48h of anticoagulation Dispo: requires continued inpatient care. Anticipate 3-4 day hospitalization.]
[2017-10-06] MEDS ORDERED: Lidocaine 2% VISCOUS* 15 ML UDC PO PRN (18:17)
[2017-10-06] MEDS: Morphine ORAL CONCENTRATE* 5 MG/0.25 ML ORAL.SYRIN SL PRN (19:50)
[2017-10-07 05:40] LABS: EGFR Non-African American 113.9 (>60)
[2017-10-07] MEDS: ZOSYN 3.375 GM Q8H per EXTENDED INFUSION IVPB SCH ×4 (09:55→16:19)
[2017-10-07] MEDS: NS 0.9% w/ 20 Meq KCL 1000 ML* 1,000 ML IV SCH (10:04)
[2017-10-07] MEDS: Citalopram TAB* 40 MG PO SCH (10:05)
[2017-10-07] MEDS: Omeprazole CAP* 20 MG PO SCH (10:05)
[2017-10-07] MEDS: Cholecalciferol TAB* 1000 UNITS PO SCH (10:05)
[2017-10-07] MEDS: Vitamin B Complex TAB PO SCH (10:18)
[2017-10-07] MEDS: Benzonatate CAP* 100 MG PO PRN ×2 (13:15→21:49)
[2017-10-07] MEDS: Fluconazole 100 MG TAB* TAB PO SCH (13:15)
[2017-10-07] MEDS: Acetaminophen TAB* 325 MG PO PRN (16:24)
[2017-10-07] MEDS: Heparin DRIP 25,000 UNITS(*) 25,000 UNITS/500 ML BAG IV SCH (17:46)
[2017-10-07] MEDS: traMADol TAB* 50 MG PO PRN (21:49)
[2017-10-08] MEDS: ZOSYN 3.375 GM Q8H per EXTENDED INFUSION IVPB SCH ×6 (00:32→16:24)
[2017-10-08] MEDS: NS 0.9% w/ 20 Meq KCL 1000 ML* 1,000 ML IV SCH ×2 (01:13→16:34)
[2017-10-08 06:02] LABS: Hematocrit 28 % (35-47); Hemoglobin 9.1 g/dl (12.0-16.0); Mean Corpuscular HGB Conc 32 g/dl (31-36); Mean Corpuscular Hemoglobin 28 pg (27-31); Mean Corpuscular Volume 85 fL (80-97); Mean Platelet Volume 7.5 um3 (7.4-10.4); Platelet Count 514 10^3/ul (150-450); Red Blood Count 3.33 10^6/ul (4.00-5.40); Red Cell Distribution Width 17 % (10.5-15); White Blood Count 13.9 10^3/ul (3.5-10.8)
[2017-10-08] MEDS: traMADol TAB* 50 MG PO PRN ×2 (06:04→22:46)
[2017-10-08 06:21] LABS: EGFR Non-African American 118.9 (>60)
[2017-10-08 06:24] LABS: ABS Basophils 0.1 10^3/ul (0-0.2); ABS Eosinophils 0.2 10^3/ul (0-0.6); ABS Lymphocytes 0.9 10^3/ul (1.0-4.8); ABS Monocytes 0.9 10^3/ul (0-0.8); ABS Neutrophils 12.3 10^3/ul (1.5-7.7); ABS Nucleated RBC 0 10^3/ul
[2017-10-08 06:50] LABS: Eosinophil % 1.6 % (0-6); Lymphocyte % 6.3 % (25-47); Nucleated Red Blood Cells % 0
[2017-10-08] MEDS: Omeprazole CAP* 20 MG PO SCH (07:45)
[2017-10-08] MEDS: Citalopram TAB* 40 MG PO SCH (07:45)
[2017-10-08] MEDS: Vitamin B Complex TAB PO SCH (07:45)
[2017-10-08] MEDS: Cholecalciferol TAB* 1000 UNITS PO SCH (07:46)
[2017-10-08] MEDS: Fluconazole 100 MG TAB* TAB PO SCH (11:20)
[2017-10-08] MEDS: Enoxaparin(*) 100 MG/ML SYR SUBCUT SCH (15:03)
[2017-10-09] MEDS: ZOSYN 3.375 GM Q8H per EXTENDED INFUSION IVPB SCH ×4 (00:24→08:22)
[2017-10-09] MEDS: NS 0.9% w/ 20 Meq KCL 1000 ML* 1,000 ML IV SCH ×2 (05:17→21:43)
[2017-10-09 05:27] LABS: ABS Basophils 0.1 10^3/ul (0-0.2); ABS Eosinophils 0.1 10^3/ul (0-0.6); ABS Lymphocytes 0.7 10^3/ul (1.0-4.8); ABS Monocytes 0.8 10^3/ul (0-0.8); ABS Neutrophils 7.7 10^3/ul (1.5-7.7); ABS Nucleated RBC 0 10^3/ul; Eosinophil % 1.3 % (0-6); Hematocrit 24 % (35-47); Lymphocyte % 7.8 % (25-47); Mean Corpuscular HGB Conc 33 g/dl (31-36); Mean Corpuscular Hemoglobin 28 pg (27-31); Mean Corpuscular Volume 85 fL (80-97); Nucleated Red Blood Cells % 0; Platelet Count 398 10^3/ul (150-450); Red Blood Count 2.84 10^6/ul (4.00-5.40); Red Cell Distribution Width 18 % (10.5-15); White Blood Count 9.5 10^3/ul (3.5-10.8)
[2017-10-09 05:54] LABS: EGFR Non-African American 143.6 (>60)
[2017-10-09] MEDS: Omeprazole CAP* 20 MG PO SCH (07:30)
[2017-10-09] MEDS: Cholecalciferol TAB* 1000 UNITS PO SCH (08:22)
[2017-10-09] MEDS: Vitamin B Complex TAB PO SCH (08:23)
[2017-10-09] MEDS: ALPRAZolam TAB* 0.5 MG PO PRN ×2 (08:23→14:46)
[2017-10-09] MEDS: Fluconazole 100 MG TAB* TAB PO SCH (08:23)
[2017-10-09] MEDS: Citalopram TAB* 40 MG PO SCH (08:23)
[2017-10-09] MEDS: Enoxaparin(*) 100 MG/ML SYR SUBCUT SCH (08:23)
[2017-10-09] MEDS ORDERED: Piperacillin/Tazobac ADVAN(*) 3.375 GM in NS 0.9% 50 ML* 50 ML IVPB SCH (11:09)
[2017-10-09] MEDS: Benzonatate CAP* 100 MG PO PRN (13:30)
[2017-10-09] MEDS: Morphine ORAL CONCENTRATE* 5 MG/0.25 ML ORAL.SYRIN SL PRN (14:22)
[2017-10-09] MEDS: Piperacillin/Tazobac ADVAN(*) 3.375 GM in NS 0.9% 50 ML* 50 ML IVPB SCH (16:11)
[2017-10-10] MEDS: Piperacillin/Tazobac ADVAN(*) 3.375 GM in NS 0.9% 50 ML* 50 ML IVPB SCH ×4 (00:22→23:42)
[2017-10-10] MEDS: ALPRAZolam TAB* 0.5 MG PO PRN ×2 (00:26→20:11)
[2017-10-10] MEDS: oxyCODONE TAB* 5 MG TAB PO PRN (06:05)
[2017-10-10] MEDS: Acetaminophen TAB* 325 MG PO PRN (06:05)
[2017-10-10 06:29] LABS: EGFR Non-African American 143.6 (>60)
[2017-10-10] MEDS: Prochlorperazine TAB* 10 MG PO PRN ×2 (07:30→20:11)
[2017-10-10] MEDS: Omeprazole CAP* 20 MG PO SCH (07:30)
[2017-10-10] MEDS: Polyethylene Glycol 3350* 17 GM PACKET PO SCH (07:39)
[2017-10-10] MEDS: Fluconazole 100 MG TAB* TAB PO SCH (09:00)
[2017-10-10] MEDS: Citalopram TAB* 40 MG PO SCH (09:00)
[2017-10-10] MEDS: Enoxaparin(*) 100 MG/ML SYR SUBCUT SCH (09:00)
[2017-10-10] MEDS: Vitamin B Complex TAB PO SCH (09:00)
[2017-10-10] MEDS: Cholecalciferol TAB* 1000 UNITS PO SCH (09:00)
[2017-10-10 10:26] LABS: ABS Basophils 0.1 10^3/ul (0-0.2); ABS Eosinophils 0.2 10^3/ul (0-0.6); ABS Lymphocytes 0.6 10^3/ul (1.0-4.8); ABS Monocytes 0.9 10^3/ul (0-0.8); ABS Neutrophils 7.5 10^3/ul (1.5-7.7); ABS Nucleated RBC 0 10^3/ul; Eosinophil % 1.8 % (0-6); Hematocrit 23 % (35-47); Hemoglobin 7.5 g/dl (12.0-16.0); Lymphocyte % 6.7 % (25-47); Mean Corpuscular HGB Conc 33 g/dl (31-36); Mean Corpuscular Hemoglobin 28 pg (27-31); Mean Corpuscular Volume 85 fL (80-97); Mean Platelet Volume 7.1 um3 (7.4-10.4); Nucleated Red Blood Cells % 0; Platelet Count 420 10^3/ul (150-450); Red Blood Count 2.69 10^6/ul (4.00-5.40); Red Cell Distribution Width 17 % (10.5-15); White Blood Count 9.2 10^3/ul (3.5-10.8)
[2017-10-10] MEDS ORDERED: Gadoteridol* (CONTRAST) 279.3 MG/ML 10 ML IV ONE (15:33)
--- NOTE | 2017-10-10 15:59 | RAD ---
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 Additionally, axial diffusion-weighted images were obtained with calculated apparent diffusion coefficients. Additionally, sagittal, coronal, and axial T1-weighted images were obtained after contrast enhancement with a gadolinium-based intravenous contrast agent. FINDINGS: HEMORRHAGE/INFARCT: There is no hemorrhage or acute infarct. MASSES/SHIFT: There is no space-occupying lesion. There is no shift. EXTRA-AXIAL SPACES/MENINGES: Again noted is smooth pachymeningeal enhancement. There has been interval resolution of the small subdural fluid collections. SULCI AND VENTRICLES: Again noted is high precontrast T1 signal noted in an antidependent location within the frontal horn of the right lateral ventricle. CEREBRUM: There has been interval decrease in size of the enhancing lesion of the left inferior frontal lobe, currently measuring 0.3 cm compared to 0.6 cm. There has been interval decrease in size of an enhancing lesion of the left frontal operculum . BRAINSTEM: There are no focal parenchymal abnormalities. CEREBELLUM: There is post surgical change and enhancement of the right inferior cerebellum. The nodularity noted on the previous examination has improved The cerebellar tonsils are normal in size and position. SELLA: The sella is normal. PINEAL: The pineal region is clear. CP ANGLE/TEMPORAL BONES: The labyrinthine structures are grossly normal. VESSELS: Normal flow-voids are noted within the visualized vertebral vasculature. DIFFUSION ABNORMALITIES: There are no diffusion abnormalities. PARANASAL SINUSES/MASTOIDS: The paranasal sinuses are clear. There are bilateral mastoid effusions. ORBITS: The orbits are unremarkable. BONES AND SOFT TISSUE: No bone or soft tissue abnormalities are noted. OTHER: None IMPRESSION: 1. PERSISTENT, BUT IMPROVED, ENHANCING LESIONS OF THE LEFT FRONTAL LOBE AND RIGHT SUPERIOR CEREBELLUM. POST SURGICAL CHANGE TO THE RIGHT INFERIOR CEREBELLUM. 2. THERE IS PERSISTENT PACHYMENINGEAL ENHANCEMENT SUGGESTIVE OF INTRACRANIAL HYPOTENSION WITH INTERVAL RESOLUTION OF THE SMALL BILATERAL SUBDURAL HEMATOMAS. 3. AGAIN NOTED IS ELEVATED PRECONTRAST T1 AND T2 SIGNAL WITHIN THE RIGHT LATERAL VENTRICLE SUGGESTIVE OF INTRAVENTRICULAR FAT. 4. BILATERAL MASTOID EFFUSIONS.
--- NOTE | 2017-10-10 16:21 | RAD ---
INDICATION: Follow-up pneumonia COMPARISON: Most recent comparison chest x-rays dated October 05, 2017 TECHNIQUE: PA and lateral views of the chest were obtained. FINDINGS: The heart and mediastinum are normal in size and contour. There is been interval appearance of patchy density overlying the right lung while the density previously seen overlying the left lung has improved. Visualized bones are normal for the patient's age. There is no radiographic evidence of free air beneath the diaphragm IMPRESSION: INTERVAL APPEARANCE OF PNEUMONIA OVERLYING THE RIGHT LUNG NEW SINCE THE PREVIOUS CHEST X-RAY WHILE THE LEFT LUNG EXHIBITS IMPROVED AERATION FROM THE PREVIOUS CHEST X-RAY.
--- NOTE | 2017-10-10 17:51 | PN ---
Progress Note - Progress Note Date of Service: 10/10/17 SOAP: Subjective: []Pt. seen and examined at approx. 1250 this afternoon. Feeling OK however very tired. Notes she is having a hard time forming words, not finding them, but feels garbled. Has been having visual hallucinations of bugs crawling by. Denies auditory hallucinations. Denies new or worsening HAs. Breathing is OK with oxygen and rate down to 2Lpm via NC during assessment. Medications: Acetaminophen (Tylenol Tab*) 650 mg PO Q4H PRN PRN Reason: FEVER/PAIN Last Admin: 10/10/17 06:05 Dose: 650 mg Albuterol (Ventolin Hfa Inhaler*) 2 puff INH Q6H PRN PRN Reason: SOB/WHEEZING Albuterol/Ipratropium (Duoneb (Albuterol 2.5 Mg/Ipratropium 0.5 Mg)) 1 neb INH Q4H PRN PRN Reason: SOB/WHEEZING Alprazolam (Xanax Tab*) 1 mg PO TID PRN PRN Reason: ANXIETY Last Admin: 10/10/17 00:26 Dose: 1 mg Benzonatate (Tessalon Cap*) 100 mg PO TID PRN PRN Reason: COUGH Last Admin: 10/09/17 13:30 Dose: 100 mg Cholecalciferol (Vitamin D Tab*) 5,000 units PO DAILY [facility] Last Admin: 10/10/17 09:00 Dose: 5,000 units Citalopram Hydrobromide (Celexa Tab*) 40 mg PO DAILY [facility] Last Admin: 10/10/17 09:00 Dose: 40 mg Enoxaparin Sodium (Lovenox(*)) 100 mg SUBCUT DAILY [facility] Last Admin: 10/10/17 09:00 Dose: 100 mg Fluconazole (Diflucan 100 Mg Tab*) 100 mg PO DAILY [facility] Last Admin: 10/10/17 09:00 Dose: 100 mg Piperacillin Sod/Tazobactam (Sod 3.375 gm/ Sodium Chloride) 50 mls @ 12.5 mls/ hr IVPB Q8H [facility] Last Admin: 10/10/17 17:07 Dose: 12.5 mls/hr Lidocaine (Xylocaine 2% Viscous*) 15 ml PO TID PRN PRN Reason: SORE THROAT Last Admin: 10/06/17 19:52 Dose: 15 ml Morphine Sulfate (Morphine Inj ((Syringe))*) 1 mg IV Q4H PRN PRN Reason: PAIN - MILD Morphine Sulfate (Morphine Oral Concentrate*) 5 mg SL Q2H PRN PRN Reason: PAIN Last Admin: 10/09/17 14:22 Dose: 5 mg Omeprazole (Prilosec Cap*) 40 mg PO DAILY@0730 [facility] Last Admin: 10/10/17 07:30 Dose: 40 mg Oxycodone HCl (Roxycodone Tab*) 5 mg PO Q6H PRN PRN Reason: PAIN - MODERATE TO SEVERE Last Admin: 10/10/17 06:05 Dose: 5 mg Pharmacy Consult (Zosyn Per Pharmacy*) 1 note FOLLOW UP .ZOSYN PER PHARMACY [facility] Polyethylene Glycol/Electrolytes (Miralax*) 17 gm PO DAILY [facility] Last Admin: 10/10/17 07:39 Dose: Not Given Prochlorperazine (Compazine Tab*) 10 mg PO Q6H PRN PRN Reason: NAUSEA/VOMITING Temazepam (Restoril Cap*) 15 mg PO BEDTIME PRN PRN Reason: INSOMNIA Tramadol HCl (Ultram*) 50 mg PO Q6H PRN PRN Reason: PAIN Last Admin: 10/08/17 22:46 Dose: 50 mg Vitamin B Complex/Vitamin E (B Complex-50*) 1 tab PO DAILY [facility] Last Admin: 10/10/17 09:00 Dose: 1 tab Objective: [] Vital Signs Temp Pulse Resp BP Pulse Ox 99.1 F 88 20 86/44 94 10/10/17 07:25 10/10/17 07:25 10/10/17 07:59 10/10/17 07:25 10/10/17 10:37 A&Ox3, EOMI, DURÁN, involved in discuss HRR, S1S2, SR on tele LS dim. bilat. with fine crackles to right Laboratory Results - last 24 hr 10/10/17 10/10/17 10/10/17 05:48 10:18 10:18 WBC 9.2 RBC 2.69 L Hgb 7.5 L Hct 23 L MCV 85 MCH 28 MCHC 33 RDW 17 H Plt Count 420 MPV 7.1 L Neut % (Auto) 81.3 Lymph % (Auto) 6.7 L [place] % (Auto) 9.2 H Eos % (Auto) 1.8 Baso % (Auto) 1.0 Absolute Neuts (auto) 7.5 Absolute Lymphs (auto) 0.6 L Absolute Monos (auto) 0.9 H Absolute Eos (auto) 0.2 Absolute Basos (auto) 0.1 Absolute Nucleated RBC 0 Nucleated RBC % 0 Creatinine 0.45 L Est GFR ( Amer) 173.8 Est GFR (Non-Af Amer) 143.6 Blood Type A Positive Antibody Screen Negative Crossmatch See Detail Microbiology 10/05/17 19:31 Aerobic Blood Culture - Preliminary Blood Venous No Growth Day 4 Anaerobic Blood Culture - Preliminary No Growth Day 4 10/05/17 18:03 Aerobic Blood Culture - Preliminary Blood Venous No Growth Day 4 Anaerobic Blood Culture - Preliminary No Growth Day 4 10/07/17 13:24 Gram Stain - Final Sputum Expectorated 10/06/17 03:55 Urine Culture - Final Urine 10/06/17 03:55 Legionella Urinary Antigen - Final Urine Negative Legionella Antigen Streptococcus pneumoniae Ag Screen - Final Negative S. pneumo Antigen Assessment: []57 yo female with recently diagnosed PDL1+ metastatic NSCLC s/p craniotomy and C1 Pembroluzimab (09/25) admitted with new PE and PNA, slowly improving. Plan: []1. PNA: repeat CXR today with blossoming of R PNA, however clinical improvement - cont. IV abx. and will likely transition to Augmentin on d/c 2. PE: cont. Lovenox, will need indefinitely - plan for home O2 3. Speech changes and hallucinations: repeat MRI brain with stable disease - consider trial of low dose steroids, though trying to avoid with immunotherapy 4. Weakness: suspect slow improvement with known disease burden and recent infection - PT eval., goal of home in next day or so with support services, does not live alone
[2017-10-10] MEDS: Morphine ORAL CONCENTRATE* 5 MG/0.25 ML ORAL.SYRIN SL PRN (23:41)
[2017-10-11 06:57] LABS: Hematocrit 24 % (35-47); Hemoglobin 7.5 g/dl (12.0-16.0); Mean Corpuscular HGB Conc 32 g/dl (31-36); Mean Corpuscular Hemoglobin 27 pg (27-31); Mean Corpuscular Volume 85 fL (80-97); Mean Platelet Volume 7.4 um3 (7.4-10.4); Platelet Count 498 10^3/ul (150-450); Red Cell Distribution Width 17 % (10.5-15); White Blood Count 10.6 10^3/ul (3.5-10.8)
[2017-10-11] MEDS: Cholecalciferol TAB* 1000 UNITS PO SCH (08:23)
[2017-10-11] MEDS: Omeprazole CAP* 20 MG PO SCH (08:24)
[2017-10-11] MEDS: Fluconazole 100 MG TAB* TAB PO SCH (08:24)
[2017-10-11] MEDS: Polyethylene Glycol 3350* 17 GM PACKET PO SCH (08:24)
[2017-10-11] MEDS: Citalopram TAB* 40 MG PO SCH (08:24)
[2017-10-11] MEDS: Vitamin B Complex TAB PO SCH (08:24)
[2017-10-11] MEDS: Enoxaparin(*) 100 MG/ML SYR SUBCUT SCH (08:44)
[2017-10-11] MEDS: Piperacillin/Tazobac ADVAN(*) 3.375 GM in NS 0.9% 50 ML* 50 ML IVPB SCH (08:45)
[2017-10-11 08:55] LABS: ABS Basophils 0 10^3/ul (0-0.2); ABS Eosinophils 0.1 10^3/ul (0-0.6); ABS Lymphocytes 0.8 10^3/ul (1.0-4.8); ABS Monocytes 0.9 10^3/ul (0-0.8); ABS Neutrophils 8.8 10^3/ul (1.5-7.7); ABS Nucleated RBC 0 10^3/ul; Eosinophil % 0.9 % (0-6); Lymphocyte % 7.5 % (25-47); Nucleated Red Blood Cells % 0
--- NOTE | 2017-10-11 10:51 | PN ---
Progress Note - Progress Note Date of Service: 10/11/17 SOAP: Subjective: []Still very tired but no worse than yesterday. Doesn't feel like her breathing is any worse, though winded with any exertion. This AM desaturated, but quickly recovered with non-rebreather and sitting upright. Coughing but no producing a lot. Eating OK, but food still tastes bad mouth still feels stiff. Regular BMs and no complaints re: UO Medications: Acetaminophen (Tylenol Tab*) 650 mg PO Q4H PRN PRN Reason: FEVER/PAIN Last Admin: 10/10/17 06:05 Dose: 650 mg Albuterol (Ventolin Hfa Inhaler*) 2 puff INH Q6H PRN PRN Reason: SOB/WHEEZING Albuterol/Ipratropium (Duoneb (Albuterol 2.5 Mg/Ipratropium 0.5 Mg)) 1 neb INH [id number] AWAKE [facility] Alprazolam (Xanax Tab*) 1 mg PO TID PRN PRN Reason: ANXIETY Last Admin: 10/10/17 20:11 Dose: 1 mg Benzonatate (Tessalon Cap*) 100 mg PO TID PRN PRN Reason: COUGH Last Admin: 10/09/17 13:30 Dose: 100 mg Cholecalciferol (Vitamin D Tab*) 5,000 units PO DAILY [facility] Last Admin: 10/11/17 08:23 Dose: 5,000 units Citalopram Hydrobromide (Celexa Tab*) 40 mg PO DAILY [facility] Last Admin: 10/11/17 08:24 Dose: 40 mg Enoxaparin Sodium (Lovenox(*)) 100 mg SUBCUT DAILY [facility] Last Admin: 10/11/17 08:44 Dose: 100 mg Fluconazole (Diflucan 100 Mg Tab*) 100 mg PO DAILY [facility] Last Admin: 10/11/17 08:24 Dose: 100 mg Piperacillin Sod/Tazobactam (Sod 3.375 gm/ Sodium Chloride) 50 mls @ 12.5 mls/ hr IVPB Q8H [facility] Last Admin: 10/11/17 08:45 Dose: 12.5 mls/hr Potassium Chloride (Potassium Chloride 20 Meq/100 Ml Ivpremix*) 20 meq in 100 mls @ 50 mls/hr IV Q2H [facility] Stop: 10/11/17 14:59 Morphine Sulfate (Morphine Oral Concentrate*) 5 mg SL Q2H PRN PRN Reason: pain or dyspnea Multi-Ingredient Mouthwash/Gargle (Magic M W2 Patrick/Maal/Nyst/Lido*) 10 ml SWISH SPIT QID [facility] Omeprazole (Prilosec Cap*) 40 mg PO DAILY@0730 [facility] Last Admin: 10/11/17 08:24 Dose: 40 mg Oxycodone HCl (Roxycodone Tab*) 5 mg PO Q6H PRN PRN Reason: PAIN - MODERATE TO SEVERE Last Admin: 10/10/17 06:05 Dose: 5 mg Pharmacy Consult (Zosyn Per Pharmacy*) 1 note FOLLOW UP .ZOSYN PER PHARMACY [facility] Polyethylene Glycol/Electrolytes (Miralax*) 17 gm PO DAILY [facility] Last Admin: 10/11/17 08:24 Dose: Not Given Prochlorperazine (Compazine Tab*) 10 mg PO Q6H PRN PRN Reason: NAUSEA/VOMITING Last Admin: 10/10/17 20:11 Dose: 10 mg Temazepam (Restoril Cap*) 15 mg PO BEDTIME PRN PRN Reason: INSOMNIA Vitamin B Complex/Vitamin E (B Complex-50*) 1 tab PO DAILY [facility] Last Admin: 10/11/17 08:24 Dose: 1 tab Objective: [] Vital Signs Temp Pulse Resp BP Pulse Ox 98.1 F 100 32 105/48 94 10/11/17 08:10 10/11/17 08:10 10/11/17 08:10 10/11/17 08:10 10/11/17 08:10 A&Ox3, EOMI, DURÁN +thrush HRR, S1S2, SR on tele, occassionally tachy LS dim. R>L, no crackles today +BS, abd. soft and non-tender Laboratory Results - last 24 hr 10/10/17 10/11/17 10/11/17 10:18 06:07 06:07 WBC 10.6 RBC 2.80 L Hgb 7.5 L Hct 24 L MCV 85 MCH 27 MCHC 32 RDW 17 H Plt Count 498 H D MPV 7.4 Neut % (Auto) 83.1 H Lymph % (Auto) 7.5 L [place] % (Auto) 8.1 H Eos % (Auto) 0.9 Baso % (Auto) 0.4 Absolute Neuts (auto) 8.8 H Absolute Lymphs (auto) 0.8 L Absolute Monos (auto) 0.9 H Absolute Eos (auto) 0.1 Absolute Basos (auto) 0 Absolute Nucleated RBC 0 Nucleated RBC % 0 Sodium 137 Potassium 3.2 L Chloride 105 Carbon Dioxide 23 Anion Gap 9 BUN 6 Creatinine 0.46 L Est GFR ( Amer) 169.4 Est GFR (Non-Af Amer) 140.0 BUN/Creatinine Ratio 13.0 Glucose 89 Calcium 8.9 Total Bilirubin 0.40 AST 15 ALT 12 Alkaline Phosphatase 278 H Total Protein 5.0 L Albumin 2.1 L Globulin 2.9 Albumin/Globulin Ratio 0.7 L Blood Type A Positive Antibody Screen Negative Crossmatch See Detail Microbiology 10/05/17 19:31 Aerobic Blood Culture - Final Blood Venous No Growth Day 5 Anaerobic Blood Culture - Final No Growth Day 5 10/05/17 18:03 Aerobic Blood Culture - Final Blood Venous No Growth Day 5 Anaerobic Blood Culture - Final No Growth Day 5 10/07/17 13:24 Gram Stain - Final Sputum Expectorated 10/06/17 03:55 Urine Culture - Final Urine 10/06/17 03:55 Legionella Urinary Antigen - Final Urine Negative Legionella Antigen Streptococcus pneumoniae Ag Screen - Final Negative S. pneumo Antigen Assessment: []57 yo female with metastatic PDL1+ NSCLC admitted with PNA and PE, slowly improving. Plan: []1. PNA: cont. IV Zosyn while inpt., plan to transition to PO Augmentin on d/c - CXR yesterday with inc. infiltrate on Right felt clinically to be some fluid overload and fluids stopped, +SIRS assessment nursing appears 2/2 to increased respiratory effort, will check lactic acid today to be cautious - Hypoxia and tachypnea, suggest trying nebs scheduled for next 24 hrs and PRN morphine for increase resp. effort - will need home O2 2. PE: on Lovenox, cont.'d intermittent hypoxia likely 2/2 infectious process 3. Anemia: discussed transfusing 1 unit PRBCs today reviewing benefit and potential risks, pt. agreeable - cont. to monitor CBC qday while inpt. 4. Hypokalemia: attempted to stop fluids yesterday, however poor PO intake so now decreased - 40 mEq IV KCl as runs today Dispo: Inpatient for above IV management and current monitoring, goal of home with services in next day or 2, needs PT eval as ordered yesterday
[2017-10-11] MEDS: Albuterol/Ipratropium NEB.SOL* Albuterol 2.5 MG/Ipratropium 0.5 MG 3 ML INH SCH ×3 (12:00→19:13)
[2017-10-11 12:08] LABS: EGFR Non-African American 151.3 (>60)
[2017-10-11] MEDS ORDERED: Magic M W2 Ben/Maal/Nyst/Lido* 240 ML MOUTHWASH (alt formulation) SWISH SPIT SCH (13:00)
[2017-10-11] MEDS: KCL 20 MEQ/100 ML IVPREMIX* 20 MEQ/100 ML BAG IV SCH ×3 (13:52→20:20)
[2017-10-11] MEDS: Piperacillin/Tazobac ADVAN(*) 3.375 GM in NS 0.9% 100 ML* 100 ML IVPB SCH ×2 (16:20→21:48)
[2017-10-11] MEDS: Acetaminophen TAB* 325 MG PO PRN (19:54)
[2017-10-11] MEDS: Magic M W2 Ben/Maal/Nyst/Lido* 240 ML MOUTHWASH (alt formulation) SWISH SPIT SCH (21:45)
[2017-10-12] MEDS: Albuterol/Ipratropium NEB.SOL* Albuterol 2.5 MG/Ipratropium 0.5 MG 3 ML INH SCH ×7 (00:11→23:18)
[2017-10-12] MEDS: Magic M W2 Ben/Maal/Nyst/Lido* 240 ML MOUTHWASH (alt formulation) SWISH SPIT SCH ×4 (03:39→21:54)
[2017-10-12] MEDS: Piperacillin/Tazobac ADVAN(*) 3.375 GM in NS 0.9% 100 ML* 100 ML IVPB SCH ×4 (03:41→21:55)
[2017-10-12 07:22] LABS: Hematocrit 26 % (35-47); Hemoglobin 8.3 g/dl (12.0-16.0); Mean Corpuscular HGB Conc 32 g/dl (31-36); Mean Corpuscular Hemoglobin 27 pg (27-31); Mean Corpuscular Volume 84 fL (80-97); Mean Platelet Volume 7.4 um3 (7.4-10.4); Platelet Count 477 10^3/ul (150-450); Red Blood Count 3.05 10^6/ul (4.00-5.40); Red Cell Distribution Width 18 % (10.5-15)
[2017-10-12] MEDS: Acetaminophen TAB* 325 MG PO PRN ×2 (08:06→17:07)
[2017-10-12] MEDS: Prochlorperazine TAB* 10 MG PO PRN ×2 (08:06→17:06)
[2017-10-12] MEDS: Vitamin B Complex TAB PO SCH (08:06)
[2017-10-12] MEDS: Citalopram TAB* 40 MG PO SCH (08:07)
[2017-10-12] MEDS: Cholecalciferol TAB* 1000 UNITS PO SCH (08:07)
[2017-10-12] MEDS: Fluconazole 100 MG TAB* TAB PO SCH (08:07)
[2017-10-12] MEDS: Enoxaparin(*) 100 MG/ML SYR SUBCUT SCH (08:08)
[2017-10-12] MEDS: Omeprazole CAP* 20 MG PO SCH (08:08)
[2017-10-12 08:12] LABS: ABS Basophils 0.1 10^3/ul (0-0.2); ABS Eosinophils 0.1 10^3/ul (0-0.6); ABS Lymphocytes 0.6 10^3/ul (1.0-4.8); ABS Monocytes 0.9 10^3/ul (0-0.8); ABS Neutrophils 10.4 10^3/ul (1.5-7.7); ABS Nucleated RBC 0 10^3/ul; Eosinophil % 0.8 % (0-6); Lymphocyte % 4.7 % (25-47); Nucleated Red Blood Cells % 0.2
[2017-10-12] MEDS: Polyethylene Glycol 3350* 17 GM PACKET PO SCH (08:14)
[2017-10-12] MEDS ORDERED: Iodixanol* (CONTRAST) 320 MG/ML 100 ML SDV IV ONE (11:43)
[2017-10-12 12:51] LABS: EGFR Non-African American 151.3 (>60)
--- NOTE | 2017-10-12 13:25 | RAD ---
HISTORY: PNA with new leukocytosis and cont. hypoxia COMPARISONS: October 05, 2017 TECHNIQUE: Multiple contiguous axial CT scans of the chest were obtained with intravenous contrast. Coronal and sagittal multiplanar reformations are also submitted for review. FINDINGS: NECK AND THYROID: The lower neck and thyroid are unremarkable. CHEST WALL: There is no lower cervical, axillary, or supraclavicular lymphadenopathy by size criteria. Surgical clips are noted in the right axilla. The patient appears to be status post bilateral mastectomy. HEART AND PERICARDIUM: There is a small pericardial effusion. AORTA AND PULMONARY VASCULATURE: There is persistent thrombus within the right main pulmonary artery, decreased from the previous examination. MEDIASTINUM: There is right paratracheal lymphadenopathy similar to the previous examination. BERNY: There is a persistent right perihilar mass, similar to the previous examination. AIRWAY AND ESOPHAGUS: The airway is unremarkable, without endobronchial filling defect. The esophagus is grossly normal. LUNG PARENCHYMA: There is compressive atelectasis of the right lower lobe with patchy consolidation of the superior segment of the right lower lobe. PLEURA: There is moderate right pleural effusion. There is a trace left pleural effusion. There are stable right apical pleuroparenchymal nodularity. UPPER ABDOMEN: There is heterogeneous decreased attenuation within the right lobe of liver measuring approximately 2.4 cm in size. BONES AND SOFT TISSUES: No bone or soft tissue abnormalities are noted. OTHER: None. IMPRESSION: 1. THERE IS PERSISTENT THROMBUS OF THE RIGHT MAIN PULMONARY ARTERY, DECREASED FROM THE OCTOBER 05, 2017 EXAMINATION. 2. THERE IS ATELECTASIS AND CONSOLIDATION OF THE RIGHT LOWER LOBE, DEVELOPED FROM THE PREVIOUS EXAMINATION. 3. THERE ARE RIGHT GREATER THAN LEFT BILATERAL PLEURAL EFFUSIONS, DEVELOPED FROM PREVIOUS EXAMINATION. 4. THERE IS A SMALL PERICARDIAL EFFUSION. 5. AGAIN NOTED IS MEDIASTINAL LYMPHADENOPATHY WITH A RIGHT HILAR MASS. 6. THERE IS LOW-ATTENUATION OF THE RIGHT LOBE OF LIVER CONCERNING FOR METASTATIC DISEASE
[2017-10-12] MEDS ORDERED: Vancomycin(*) 1,250 MG in NS 0.9% 250 ML* 250 ML IVPB ONE (16:30)
--- NOTE | 2017-10-12 16:30 | PN ---
Progress Note - Progress Note Date of Service: 10/12/17 SOAP: Subjective: []Pt. seen and examined this AM with family at bedside. Tells me she is feeling better today than yesterday. Still having some SOB and nursing tapering O2 PRN as needed. Yesterday spoke with spiritual care and had a lot of questions regarding end of life. WBC has increased since yesterday. Denies new symptoms. No fevers documented. Medications: Acetaminophen (Tylenol Tab*) 650 mg PO Q4H PRN PRN Reason: FEVER/PAIN Last Admin: 10/12/17 08:06 Dose: 650 mg Albuterol (Ventolin Hfa Inhaler*) 2 puff INH Q6H PRN PRN Reason: SOB/WHEEZING Albuterol/Ipratropium (Duoneb (Albuterol 2.5 Mg/Ipratropium 0.5 Mg)) 1 neb INH [id number] AWAKE [facility] Last Admin: 10/12/17 15:40 Dose: 1 neb Alprazolam (Xanax Tab*) 1 mg PO TID PRN PRN Reason: ANXIETY Last Admin: 10/10/17 20:11 Dose: 1 mg Benzonatate (Tessalon Cap*) 100 mg PO TID PRN PRN Reason: COUGH Last Admin: 10/09/17 13:30 Dose: 100 mg Cholecalciferol (Vitamin D Tab*) 5,000 units PO DAILY [facility] Last Admin: 10/12/17 08:07 Dose: 5,000 units Citalopram Hydrobromide (Celexa Tab*) 40 mg PO DAILY [facility] Last Admin: 10/12/17 08:07 Dose: 40 mg Enoxaparin Sodium (Lovenox(*)) 100 mg SUBCUT DAILY [facility] Last Admin: 10/12/17 08:08 Dose: 100 mg Fluconazole (Diflucan 100 Mg Tab*) 100 mg PO DAILY [facility] Last Admin: 10/12/17 08:07 Dose: 100 mg Piperacillin Sod/Tazobactam (Sod 3.375 gm/ Sodium Chloride) 100 mls @ 200 mls/ hr IVPB Q6H [facility] Last Admin: 10/12/17 15:35 Dose: 200 mls/hr Morphine Sulfate (Morphine Oral Concentrate*) 5 mg SL Q2H PRN PRN Reason: pain or dyspnea Multi-Ingredient Mouthwash/Gargle (Magic M W2 Patrick/Maal/Nyst/Lido*) 10 ml SWISH SPIT Q6H [facility] Last Admin: 10/12/17 15:33 Dose: 10 ml Omeprazole (Prilosec Cap*) 40 mg PO DAILY@0730 [facility] Last Admin: 10/12/17 08:08 Dose: 40 mg Oxycodone HCl (Roxycodone Tab*) 5 mg PO Q6H PRN PRN Reason: PAIN - MODERATE TO SEVERE Last Admin: 10/10/17 06:05 Dose: 5 mg Pharmacy Consult (Zosyn Per Pharmacy*) 1 note FOLLOW UP .ZOSYN PER PHARMACY [facility] Polyethylene Glycol/Electrolytes (Miralax*) 17 gm PO DAILY [facility] Last Admin: 10/12/17 08:14 Dose: Not Given Prochlorperazine (Compazine Tab*) 10 mg PO Q6H PRN PRN Reason: NAUSEA/VOMITING Last Admin: 10/12/17 08:06 Dose: 10 mg Temazepam (Restoril Cap*) 15 mg PO BEDTIME PRN PRN Reason: INSOMNIA Vitamin B Complex/Vitamin E (B Complex-50*) 1 tab PO DAILY [facility] Last Admin: 10/12/17 08:06 Dose: 1 tab Objective: [] Vital Signs Temp Pulse Resp BP Pulse Ox 98.4 F 96 22 99/50 93 10/12/17 12:27 10/12/17 15:41 10/12/17 15:41 10/12/17 12:27 10/12/17 15:41 A&Ox3, EOMI, mumbles at time HRR, S1S2, tachycardic LS dim. R>L with rhonchi to right +BS, abd. soft and non-tender Laboratory Results - last 24 hr 10/10/17 10/12/17 10/12/17 10:18 06:09 12:20 WBC 12.0 H RBC 3.05 L Hgb 8.3 L Hct 26 L MCV 84 MCH 27 MCHC 32 RDW 18 H Plt Count 477 H MPV 7.4 Neut % (Auto) 86.6 H Lymph % (Auto) 4.7 L [place] % (Auto) 7.3 H Eos % (Auto) 0.8 Baso % (Auto) 0.6 Absolute Neuts (auto) 10.4 H Absolute Lymphs (auto) 0.6 L Absolute Monos (auto) 0.9 H Absolute Eos (auto) 0.1 Absolute Basos (auto) 0.1 Absolute Nucleated RBC 0 Nucleated RBC % 0.2 Sodium 138 Potassium 3.5 Chloride 106 Carbon Dioxide 26 Anion Gap 6 BUN 6 Creatinine 0.43 L Est GFR ( Amer) 183.1 Est GFR (Non-Af Amer) 151.3 BUN/Creatinine Ratio 14.0 Glucose 108 H Lactic Acid Calcium 8.7 Blood Type A Positive Antibody Screen Negative Crossmatch See Detail 10/12/17 12:20 WBC RBC Hgb Hct MCV MCH MCHC RDW Plt Count MPV Neut % (Auto) Lymph % (Auto) [place] % (Auto) Eos % (Auto) Baso % (Auto) Absolute Neuts (auto) Absolute Lymphs (auto) Absolute Monos (auto) Absolute Eos (auto) Absolute Basos (auto) Absolute Nucleated RBC Nucleated RBC % Sodium Potassium Chloride Carbon Dioxide Anion Gap BUN Creatinine Est GFR ( Amer) Est GFR (Non-Af Amer) BUN/Creatinine Ratio Glucose Lactic Acid 0.9 Calcium Blood Type Antibody Screen Crossmatch Assessment: []57 yo female with metastatic NSCLC (RUL and IMMIGRATION JUDGE and liver mets), PDL1+ s/p C1 Pembroluzimab admitted with R PE and RENEE PNA initially improved, however now with recurrent leukocytosis and CT confirming a new RLL PNA. On Monday (10/10) she had a f/u CXR that I initially felt was a right infiltrate r/t fluid overload and therefore held her fluids, however unfortunately it is clear she now has a hospital acquired PNA. In terms of her questions regarding end of life I spent a significant time discussing her current diagnosis and plan of care with her and her family. With PDL1+ disease she has a very good treatment option providing good QOL, however ultimately she still needs to be well enough to be OOB and not pursuing treatment is always an option. Should she not pursue further treatment I would suggest hospice as with known IMMIGRATION JUDGE disease she likely has a prognosis of 6 mo. or less. At this time she wants to continue her current care, however she and her family are interested in further discussion regarding safe discharge. Plan: []1. Start Vancomycin 1 g IV now, trough 15-20 per pharmacy, cont. Zosyn 2. Palliative consult 3. Social work consult: I do not see her being safe for d/c home, though we will need to see her improvement with additional abx. >40 min spent with >50% face to face counseling Imaging personally reviewed and compared to 10/05 CTA Chest
[2017-10-12] MEDS ORDERED: Vancomycin per Pharmacy* NOTE FOLLOW UP PRN (16:35)
[2017-10-12] MEDS: Morphine ORAL CONCENTRATE* 5 MG/0.25 ML ORAL.SYRIN SL PRN (19:29)
[2017-10-12] MEDS: ALPRAZolam TAB* 0.5 MG PO PRN (19:32)
[2017-10-12 21:08] LABS: Urine Appearance Cloudy; Urine Blood 2+ (Negative); Urine Color Amber; Urine Ketones Negative (Negative); Urine Protein Negative (Negative); Urine Red Blood Cell 3+(>10/hpf) (Absent); Urine Specific Gravity 1.055 (1.010-1.030); Urine Urobilinogen Negative (Negative); Urine White Blood Cell 3+(>20/hpf) (Absent)
[2017-10-13] MEDS: Morphine ORAL CONCENTRATE* 5 MG/0.25 ML ORAL.SYRIN SL PRN ×2 (01:00→12:07)
[2017-10-13] MEDS: oxyCODONE TAB* 5 MG TAB PO PRN ×2 (01:01→15:52)
[2017-10-13] MEDS: Vancomycin(*) 1,000 MG in NS 0.9% 250 ML* 250 ML IVPB SCH ×4 (01:14→20:52)
[2017-10-13] MEDS: Albuterol/Ipratropium NEB.SOL* Albuterol 2.5 MG/Ipratropium 0.5 MG 3 ML INH SCH ×6 (03:15→23:31)
[2017-10-13] MEDS: Magic M W2 Ben/Maal/Nyst/Lido* 240 ML MOUTHWASH (alt formulation) SWISH SPIT SCH ×4 (03:43→21:00)
[2017-10-13] MEDS: Piperacillin/Tazobac ADVAN(*) 3.375 GM in NS 0.9% 100 ML* 100 ML IVPB SCH ×4 (03:46→22:55)
[2017-10-13 07:19] LABS: ABS Basophils 0.1 10^3/ul (0-0.2); ABS Eosinophils 0.1 10^3/ul (0-0.6); ABS Lymphocytes 0.6 10^3/ul (1.0-4.8); ABS Monocytes 0.8 10^3/ul (0-0.8); ABS Neutrophils 10.4 10^3/ul (1.5-7.7); ABS Nucleated RBC 0 10^3/ul; Eosinophil % 0.6 % (0-6); Hematocrit 28 % (35-47); Hemoglobin 8.9 g/dl (12.0-16.0); Lymphocyte % 5.1 % (25-47); Mean Corpuscular HGB Conc 32 g/dl (31-36); Mean Corpuscular Hemoglobin 27 pg (27-31); Mean Corpuscular Volume 84 fL (80-97); Mean Platelet Volume 7.4 um3 (7.4-10.4); Nucleated Red Blood Cells % 0.1; Platelet Count 541 10^3/ul (150-450); Red Blood Count 3.34 10^6/ul (4.00-5.40); Red Cell Distribution Width 18 % (10.5-15); White Blood Count 11.9 10^3/ul (3.5-10.8)
[2017-10-13 07:29] LABS: EGFR Non-African American 133.3 (>60)
[2017-10-13] MEDS: Cholecalciferol TAB* 1000 UNITS PO SCH (09:27)
[2017-10-13] MEDS: Fluconazole 100 MG TAB* TAB PO SCH (09:29)
[2017-10-13] MEDS: Enoxaparin(*) 100 MG/ML SYR SUBCUT SCH (09:30)
[2017-10-13] MEDS: Omeprazole CAP* 20 MG PO SCH (09:30)
[2017-10-13] MEDS: Citalopram TAB* 40 MG PO SCH (09:30)
[2017-10-13] MEDS: Polyethylene Glycol 3350* 17 GM PACKET PO SCH (09:31)
[2017-10-13] MEDS: Vitamin B Complex TAB PO SCH (09:34)
[2017-10-13] MEDS ORDERED: Vancomycin Trough Check NOTE FOLLOW UP ONE (16:30)
--- NOTE | 2017-10-13 16:54 | CONSULT ---
Palliative / Hospice Consult Ordering Provider: Ana Patton - Subjective Code Status: DNR Advance Directives Location: No Advance Directives MOLST Part A Completed: Yes - DNR MOLST Part E Completed:: Yes - DNI - History or Present Illness History or Present Illness: This 57 year old woman was found to have RUL NSCLC with pulmonary vascular and airway compromise in June 2017, then underwent craniotomy for resection of two cerebral metastases in July 2017. SHe also has underlying COPD and a history of breast cancer in 2005. She is admitted now with pneumonia refractory to multiple antibiotics, complaining of weakness and a 30 lb. weight loss. She has decided against further chemotherapy and immunotherapy, and current efforts are focused on an attempt to get some control over the pneumonia. She also has had a PE. When I saw her she had just been medicated and was quite somnolent; her brother Zeferino was present in the room. Zeferino says the patient has been living at home with her two adult children, and that her wish is to return home to . However, concerns about a safe situation have prompted the patient and her family to elect placement at the [facility] residence instead. Lab Values: Abnormal Lab Results 10/12/17 10/13/17 10/13/17 20:30 06:37 06:37 WBC 11.9 H RBC 3.34 L Hgb 8.9 L Hct 28 L MCV 84 MCH 27 MCHC 32 RDW 18 H Plt Count 541 H D MPV 7.4 Neut % (Auto) 87.4 H Lymph % (Auto) 5.1 L Williamson % (Auto) 6.3 Eos % (Auto) 0.6 Baso % (Auto) 0.6 Absolute Neuts (auto) 10.4 H Absolute Lymphs (auto) 0.6 L Absolute Monos (auto) 0.8 Absolute Eos (auto) 0.1 Absolute Basos (auto) 0.1 Absolute Nucleated RBC 0 Nucleated RBC % 0.1 Sodium 139 Potassium 3.5 Chloride 106 Carbon Dioxide 25 Anion Gap 8 BUN 6 Creatinine 0.48 L Est GFR ( Amer) 161.3 Est GFR (Non-Af Amer) 133.3 BUN/Creatinine Ratio 12.5 Glucose 93 Calcium 8.8 Total Bilirubin 0.40 AST 19 ALT 15 Alkaline Phosphatase 256 H Total Protein 5.6 L Albumin 2.3 L Globulin 3.3 Albumin/Globulin Ratio 0.7 L Urine Color Ute Urine Appearance Cloudy Urine pH 5.0 Ur Specific Sutton 1.055 H Urine Protein Negative Urine Ketones Negative Urine Blood 2+ A Urine Nitrate Negative Urine Bilirubin Negative Urine Urobilinogen Negative Ur Leukocyte Esterase Trace A Urine WBC (Auto) 3+(>20/hpf) A Urine RBC (Auto) 3+(>10/hpf) A Ur Squamous Epith Cells Present A Ur Renal Epithelial Cell Present A Urine Bacteria Absent Urine Glucose Negative Laboratory Last Values WBC 11.9 10^3/ul (3.5-10.8) H 10/13/17 06:37 RBC 3.34 10^6/ul (4.00-5.40) L 10/13/17 06:37 Hgb 8.9 g/dl (12.0-16.0) L 10/13/17 06:37 Hct 28 % (35-47) L 10/13/17 06:37 MCV 84 fL (80-97) 10/13/17 06:37 MCH 27 pg (27-31) 10/13/17 06:37 MCHC 32 g/dl (31-36) 10/13/17 06:37 RDW 18 % (10.5-15) H 10/13/17 06:37 Plt Count 541 10^3/ul (150-450) H D 10/13/17 06:37 MPV 7.4 um3 (7.4-10.4) 10/13/17 06:37 Neut % (Auto) 87.4 % (38-83) H 10/13/17 06:37 Lymph % (Auto) 5.1 % (25-47) L 10/13/17 06:37 Williamson % (Auto) 6.3 % (0-7) 10/13/17 06:37 Eos % (Auto) 0.6 % (0-6) 10/13/17 06:37 Baso % (Auto) 0.6 % (0-2) 10/13/17 06:37 Absolute Neuts (auto) 10.4 10^3/ul (1.5-7.7) H 10/13/17 06:37 Absolute Lymphs (auto) 0.6 10^3/ul (1.0-4.8) L 10/13/17 06:37 Absolute Monos (auto) 0.8 10^3/ul (0-0.8) 10/13/17 06:37 Absolute Eos (auto) 0.1 10^3/ul (0-0.6) 10/13/17 06:37 Absolute Basos (auto) 0.1 10^3/ul (0-0.2) 10/13/17 06:37 Absolute Nucleated RBC 0 10^3/ul 10/13/17 06:37 Nucleated RBC % 0.1 10/13/17 06:37 INR (Anticoag Therapy) 1.12 (0.77-1.02) H 10/05/17 18:03 APTT 61.0 seconds (26.0-36.3) H 10/08/17 07:57 Patient Temperature Not Reportable 10/05/17 18:40 ABG pH 7.48 (7.35-7.45) H 10/05/17 18:40 ABG pH (Temp Correct) Not Reportable 10/05/17 18:40 ABG pCO2 30 mmHg (35-45) L 10/05/17 18:40 ABG pCO2 (Temp Corrct Not Reportable 10/05/17 18:40 ABG pO2 63 mmHg (80-100) L 10/05/17 18:40 ABG pO2 (Temp Correct Not Reportable 10/05/17 18:40 ABG HCO3 24.3 mmol/L (19-31) 10/05/17 18:40 ABG O2 Saturation 94.5 % (95-98) L 10/05/17 18:40 ABG Base Excess -0.6 (-2.0-2.0) 10/05/17 18:40 Respiration Rate Not Reportable 10/05/17 18:40 O2 Delivery Device n/c 10/05/17 18:40 Ventilator Type Not Reportable 10/05/17 18:40 Vent Mode Not Reportable 10/05/17 18:40 FiO2 32 10/05/17 18:40 Inspiratory Time Not Reportable 10/05/17 18:40 PEEP Not Reportable 10/05/17 18:40 Pressure Support Not Reportable 10/05/17 18:40 Pressure Control Not Reportable 10/05/17 18:40 EPAP Not Reportable 10/05/17 18:40 IPAP Not Reportable 10/05/17 18:40 BiPAP Not Reportable 10/05/17 18:40 Sodium 139 mmol/L (135-145) 10/13/17 06:37 Potassium 3.5 mmol/L (3.5-5.0) 10/13/17 06:37 Chloride 106 mmol/L (101-111) 10/13/17 06:37 Carbon Dioxide 25 mmol/L (22-32) 10/13/17 06:37 Anion Gap 8 mmol/L (2-11) 10/13/17 06:37 BUN 6 mg/dL (6-24) 10/13/17 06:37 Creatinine 0.48 mg/dL (0.51-0.95) L 10/13/17 06:37 Est GFR ( Amer) 161.3 (>60) 10/13/17 06:37 Est GFR (Non-Af Amer) 133.3 (>60) 10/13/17 06:37 BUN/Creatinine Ratio 12.5 (8-20) 10/13/17 06:37 Glucose 93 mg/dL (70-100) 10/13/17 06:37 Lactic Acid 0.9 mmol/L (0.5-2.0) 10/12/17 12:20 Calcium 8.8 mg/dL (8.6-10.3) 10/13/17 06:37 Magnesium 1.7 mg/dL (1.9-2.7) L 10/05/17 18:03 Total Bilirubin 0.40 mg/dL (0.2-1.0) 10/13/17 06:37 AST 19 U/L (13-39) 10/13/17 06:37 ALT 15 U/L (7-52) 10/13/17 06:37 Alkaline Phosphatase 256 U/L (34-104) H 10/13/17 06:37 Total Creatine Kinase 17 U/L (10-223) 10/05/17 18:03 Troponin I 0.20 ng/mL (<0.04) H* 10/05/17 23:57 B-Natriuretic Peptide 260 pg/mL (-100) H 10/05/17 18:03 Total Protein 5.6 g/dL (6.4-8.9) L 10/13/17 06:37 Albumin 2.3 g/dL (3.2-5.2) L 10/13/17 06:37 Globulin 3.3 g/dL (2-4) 10/13/17 06:37 Albumin/Globulin Ratio 0.7 (1-3) L 10/13/17 06:37 Urine Color Ute 10/12/17 20:30 Urine Appearance Cloudy 10/12/17 20:30 Urine pH 5.0 (5-9) 10/12/17 20:30 Ur Specific Sutton 1.055 (1.010-1.030) H 10/12/17 20:30 Urine Protein Negative (Negative) 10/12/17 20:30 Urine Ketones Negative (Negative) 10/12/17 20:30 Urine Blood 2+ (Negative) A 10/12/17 20:30 Urine Nitrate Negative (Negative) 10/12/17 20:30 Urine Bilirubin Negative (Negative) 10/12/17 20:30 Urine Urobilinogen Negative (Negative) 10/12/17 20:30 Ur Leukocyte Esterase Trace (Negative) A 10/12/17 20:30 Urine WBC (Auto) 3+(>20/hpf) (Absent) A 10/12/17 20:30 Urine RBC (Auto) 3+(>10/hpf) (Absent) A 10/12/17 20:30 Ur Squamous Epith Cells Present (Absent) A 10/12/17 20:30 Ur Renal Epithelial Cell Present (Absent) A 10/12/17 20:30 Urine Bacteria Absent (Absent) 10/12/17 20:30 Urine Glucose Negative (Negative) 10/12/17 20:30 Blood Type A Positive 10/10/17 10:18 Antibody Screen Negative 10/10/17 10:18 Crossmatch See Detail 10/10/17 10:18 - Objective Active Medications: Acetaminophen (Tylenol Tab*) 650 mg PO Q4H PRN PRN Reason: FEVER/PAIN Last Admin: 10/12/17 17:07 Dose: 650 mg Albuterol (Ventolin Hfa Inhaler*) 2 puff INH Q6H PRN PRN Reason: SOB/WHEEZING Albuterol/Ipratropium (Duoneb (Albuterol 2.5 Mg/Ipratropium 0.5 Mg)) 1 neb INH [id number] AWAKE OPAL Last Admin: 10/13/17 15:08 Dose: 1 neb Alprazolam (Xanax Tab*) 1 mg PO TID PRN PRN Reason: ANXIETY Last Admin: 10/12/17 19:32 Dose: 1 mg Benzonatate (Tessalon Cap*) 100 mg PO TID PRN PRN Reason: COUGH Last Admin: 10/09/17 13:30 Dose: 100 mg Cholecalciferol (Vitamin D Tab*) 5,000 units PO DAILY [facility] Last Admin: 10/13/17 09:27 Dose: 5,000 units Citalopram Hydrobromide (Celexa Tab*) 40 mg PO DAILY [facility] Last Admin: 10/13/17 09:30 Dose: 40 mg Enoxaparin Sodium (Lovenox(*)) 100 mg SUBCUT DAILY [facility] Last Admin: 10/13/17 09:30 Dose: 100 mg Fluconazole (Diflucan 100 Mg Tab*) 100 mg PO DAILY [facility] Last Admin: 10/13/17 09:29 Dose: 100 mg Piperacillin Sod/Tazobactam (Sod 3.375 gm/ Sodium Chloride) 100 mls @ 200 mls/ hr IVPB Q6H [facility] Last Admin: 10/13/17 15:49 Dose: 200 mls/hr Vancomycin HCl 1,000 mg/ (Sodium Chloride) 250 mls @ 166.667 mls/hr IVPB Q8H [facility]; Protocol Last Admin: 10/13/17 09:22 Dose: 166.667 mls/hr Morphine Sulfate (Morphine Oral Concentrate*) 5 mg SL Q2H PRN PRN Reason: pain or dyspnea Last Admin: 10/13/17 12:07 Dose: 5 mg Multi-Ingredient Mouthwash/Gargle (Magic M W2 Patrick/Maal/Nyst/Lido*) 10 ml SWISH SPIT Q6H [facility] Last Admin: 10/13/17 16:10 Dose: Not Given Omeprazole (Prilosec Cap*) 40 mg PO DAILY@0730 [facility] Last Admin: 10/13/17 09:30 Dose: 40 mg Oxycodone HCl (Roxycodone Tab*) 5 mg PO Q6H PRN PRN Reason: PAIN - MODERATE TO SEVERE Last Admin: 10/13/17 15:52 Dose: 5 mg Pharmacy Consult (Zosyn Per Pharmacy*) 1 note FOLLOW UP .ZOSYN PER PHARMACY [facility] Pharmacy Consult (Vancomycin Per Pharmacy*) 1 note FOLLOW UP . PRN PRN Reason: PER PROTOCOL Polyethylene Glycol/Electrolytes (Miralax*) 17 gm PO DAILY [facility] Last Admin: 10/13/17 09:31 Dose: Not Given Prochlorperazine (Compazine Tab*) 10 mg PO Q6H PRN PRN Reason: NAUSEA/VOMITING Last Admin: 10/12/17 17:06 Dose: 10 mg Temazepam (Restoril Cap*) 15 mg PO BEDTIME PRN PRN Reason: INSOMNIA Vitamin B Complex/Vitamin E (B Complex-50*) 1 tab PO DAILY [facility] Last Admin: 10/13/17 09:34 Dose: Not Given Vital Signs: Vital Signs: Temp Pulse Resp BP Pulse Ox 98.4 F 103 22 132/73 96 10/13/17 15:15 10/13/17 15:15 10/13/17 15:52 10/13/17 15:15 10/13/17 15:15 Patient Weight: Weight 153 lb Intake and Output: Intake & Output 10/11/17 10/12/17 10/13/17 10/14/17 06:59 06:59 06:59 06:59 Intake Total 1095 1253 1197 475 Output Total 1095 650 50 Balance 0 603 1197 425 Weight 153 lb 6.4 oz 153 lb Intake: IV Fluids 135 245 677 5 ABX - PIPERACILLIN 120 230 120 ABX - VANCOMYCIN 510 5 NS (0.9%) 20 meq KCL 15 15 47 IVPB 120 350 ABX - PIPERACILLIN 120 100 ABX - VANCOMYCIN 250 Oral 960 730 400 120 Packed Cells 278 Output: Urine 1095 650 50 Other: Estimated Void Medium Small # Bowel Movements 0 1 0 Estimated Stool Amount Large # Voids 1 0 ADLs: Meal Record Start: 10/05/17 22: 14 Freq: DAILY@0900,1400,1800 Status: Active Protocol: Created 10/05/17 22:14 System (Rec: 10/05/17 22:14 System TELE-M03) Document 10/06/17 09:00 [id number] (Rec: 10/06/17 09:50 [id number] TELE-C01) Document 10/06/17 13:40 [id number] (Rec: 10/06/17 13:40 [id number] TELE-C01) Document 10/06/17 18:00 OLZ2484 (Rec: 10/06/17 18:01 VSD5743 TELE-C01) Document 10/07/17 09:00 VMU2553 (Rec: 10/07/17 09:37 TSN6966 TELE-C01) Document 10/07/17 14:00 EVT8128 (Rec: 10/07/17 14:26 URP5326 TELE-C01) Document 10/07/17 18:00 PBC2816 (Rec: 10/07/17 18:42 UZZ8614 TELE-C09) Document 10/08/17 09:00 ZDY7552 (Rec: 10/08/17 10:11 MSC5633 TELE-C01) Document 10/08/17 14:00 AHV7416 (Rec: 10/08/17 15:14 GVZ5703 TELE-C07) Document 10/08/17 18:00 PKW8795 (Rec: 10/08/17 18:20 PVC1387 TELE-C05) Document 10/09/17 09:00 VMS5668 (Rec: 10/09/17 14:37 BTY4589 TELE-C01) Document 10/09/17 14:00 QCB0721 (Rec: 10/09/17 14:51 CKE6516 TELE-C01) Document 10/09/17 21:26 VUR2786 (Rec: 10/09/17 21:26 XXH2075 TELE-C10) Document 10/10/17 09:00 RTC8850 (Rec: 10/10/17 12:52 OFT9577 TELE-C05) Document 10/10/17 14:00 ZSC0993 (Rec: 10/10/17 14:36 MVV2781 TELE-C15) Document 10/10/17 18:00 ZWH8325 (Rec: 10/10/17 18:53 ANO9818 TELE-C13) Document 10/11/17 09:00 KNX9754 (Rec: 10/11/17 12:39 NMV9054 TELE-C13) Document 10/11/17 14:00 MIL5269 (Rec: 10/11/17 14:54 SKE0523 TELE-C13) Document 10/11/17 18:00 XWK2716 (Rec: 10/11/17 18:18 WCD1822 TELE-C05) Document 10/12/17 10:40 PNG7567 (Rec: 10/12/17 10:40 JBB3366 TELE-C01) Document 10/12/17 18:00 BBW3576 (Rec: 10/12/17 22:42 OFR2623 TELE-C10) Document 10/13/17 09:00 KRH7196 (Rec: 10/13/17 15:13 UXL3266 TELE-C01) Document 10/13/17 14:00 FXW5410 (Rec: 10/13/17 15:16 UWH0515 TELE-C01) Intake and Output Start: 10/05/17 17: 10 Freq: Status: Active Protocol: Created 10/05/17 17:10 System (Rec: 10/05/17 17:10 System [id number]-C02) Intake and Output Start: 10/05/17 22: 14 Freq: DAILY@0600,1400,2200 Status: Active Protocol: Created 10/05/17 22:14 System (Rec: 10/05/17 22:14 System TELE-M03) Document 10/06/17 06:00 IMU2715 (Rec: 10/06/17 06:10 IPH1274 TELE-C34) Document 10/06/17 14:00 TZO6543 (Rec: 10/06/17 14:23 XDO0478 TELE-C01) Document 10/06/17 22:00 YQQ4174 (Rec: 10/06/17 22:58 EHH5396 TELE-C01) Document 10/07/17 06:00 GKH2435 (Rec: 10/07/17 07:04 ZFF8987 TELE-C35) Document 10/07/17 14:00 BVF0429 (Rec: 10/07/17 14:26 REV7929 TELE-C01) Document 10/07/17 22:00 XBF4127 (Rec: 10/07/17 23:15 DXY9849 TELE-C09) Document 10/08/17 06:00 (Rec: 10/08/17 06:50 [id number]) Document 10/08/17 14:00 KXL6801 (Rec: 10/08/17 15:14 VJX1281 TELE-C07) Document 10/08/17 21:08 ACW7407 (Rec: 10/08/17 21:10 CAM7006 TELE-C07) Document 10/09/17 06:39 SNZ5178 (Rec: 10/09/17 06:40 GDT9325 TELE-C03) Document 10/09/17 14:28 KKQ5625 (Rec: 10/09/17 14:28 LQM6196 TELE-M03) Document 10/09/17 14:49 MIJ9654 (Rec: 10/09/17 14:50 RIX4079 TELE-M03) Document 10/09/17 21:35 ANN2825 (Rec: 10/09/17 21:36 KWT2745 TELE-C10) Document 10/10/17 06:00 IPX3588 (Rec: 10/10/17 06:24 LBZ7031 TELE-C01) Document 10/10/17 14:00 JHF0677 (Rec: 10/10/17 14:36 NSO1166 TELE-C15) Document 10/10/17 21:58 GYH0710 (Rec: 10/10/17 21:59 ZAG2867 TELE-C13) Document 10/11/17 06:00 JVP5904 (Rec: 10/11/17 06:30 VML9895 TELE-C01) Document 10/11/17 14:00 OFT6776 (Rec: 10/11/17 14:54 MAI4690 TELE-C13) Document 10/11/17 16:43 DHH3302 (Rec: 10/11/17 16:43 JGW5681 TELE-M12) Document 10/11/17 21:53 ILA1477 (Rec: 10/11/17 21:54 MFF8628 TELE-C05) Document 10/12/17 06:00 OLV3052 (Rec: 10/12/17 06:23 PLU3450 [id number]) Document 10/12/17 22:00 VCV1123 (Rec: 10/12/17 22:44 VTG6587 TELE-C10) Document 10/13/17 05:59 BSX7976 (Rec: 10/13/17 05:59 QFV8682 TELE-C34) Document 10/13/17 14:00 WCI0663 (Rec: 10/13/17 15:16 VNM9996 TELE-C01) General Impression: Cushingoid facies, somnolent woman unable to converse, lying in bed in NAD. Head: Symmetrical Eyes: No Scleral Icterus Ears/Nose/Mouth/Throat: Mucous Membranes Moist Neck: Trachea Midline Cardiovascular: NL Sounds; No Murmurs; No JVD Respiratory: Symmetrical Chest Expansion and Respiratory Effort, - - basilar crepitance Abdominal: NL Sounds; No Tenderness; No Distention Extremities: No Edema - Assessment Assessment: I spoke with the patient's brother Zeferino at some length. He would like to see the patient go home to . He will discuss with the rest of the family. I am not sure the patient's children would be able to care for her adequately. Per Dr. Lombardo, if the addition of vancomycin to her ceftriaxone is not improving her clinical situation next week,she will sign on to hospice, either at the [facility] residence or at home with the hospice organization in [facility]. I stresssed to Zeferino that the patient would be bedbound, unable to care for herself and would be a great care burden, but he energetically said he was sure all the family would be able to care for her at home, and have done so previously with family members who are terminally ill. I will leave the decision to those who know her home situation best, but we will be willing to sign her on to our hospice service early next week. She has no other palliative needs at this time. Thanks - Plan Consult Plan (MU): Hospice - Time On Unit Date of Evaluation: 10/13/17 Hospice Consult Time in: 16:00 Hospice Consult Time Out: 17:00 Hospice Consult Time Total: 60
[2017-10-13] MEDS: Vancomycin(*) 750 MG in NS 0.9% 250 ML* 250 ML IVPB SCH (20:58)
[2017-10-14] MEDS: Albuterol/Ipratropium NEB.SOL* Albuterol 2.5 MG/Ipratropium 0.5 MG 3 ML INH SCH ×6 (03:02→22:29)
[2017-10-14] MEDS: Piperacillin/Tazobac ADVAN(*) 3.375 GM in NS 0.9% 100 ML* 100 ML IVPB SCH ×4 (03:32→22:56)
[2017-10-14] MEDS: Vancomycin(*) 750 MG in NS 0.9% 250 ML* 250 ML IVPB SCH ×3 (04:11→21:07)
[2017-10-14] MEDS: Magic M W2 Ben/Maal/Nyst/Lido* 240 ML MOUTHWASH (alt formulation) SWISH SPIT SCH ×4 (04:42→21:10)
[2017-10-14 06:14] LABS: ABS Basophils 0.1 10^3/ul (0-0.2); ABS Eosinophils 0.2 10^3/ul (0-0.6); ABS Lymphocytes 0.6 10^3/ul (1.0-4.8); ABS Monocytes 0.9 10^3/ul (0-0.8); ABS Nucleated RBC 0 10^3/ul; Eosinophil % 1.5 % (0-6); Hematocrit 27 % (35-47); Hemoglobin 8.7 g/dl (12.0-16.0); Lymphocyte % 4.4 % (25-47); Mean Corpuscular HGB Conc 33 g/dl (31-36); Mean Corpuscular Hemoglobin 28 pg (27-31); Mean Corpuscular Volume 85 fL (80-97); Nucleated Red Blood Cells % 0; Platelet Count 534 10^3/ul (150-450); Red Blood Count 3.12 10^6/ul (4.00-5.40); Red Cell Distribution Width 18 % (10.5-15); White Blood Count 12.7 10^3/ul (3.5-10.8)
[2017-10-14 06:32] LABS: EGFR Non-African American 36.4 (>60)
[2017-10-14] MEDS: Fluconazole 100 MG TAB* TAB PO SCH (09:06)
[2017-10-14] MEDS: Omeprazole CAP* 20 MG PO SCH (09:06)
[2017-10-14] MEDS: Citalopram TAB* 40 MG PO SCH (09:06)
[2017-10-14] MEDS: Cholecalciferol TAB* 1000 UNITS PO SCH (09:06)
[2017-10-14] MEDS: Polyethylene Glycol 3350* 17 GM PACKET PO SCH (09:07)
[2017-10-14] MEDS: Enoxaparin(*) 100 MG/ML SYR SUBCUT SCH (09:07)
[2017-10-14] MEDS: Vitamin B Complex TAB PO SCH (09:07)
[2017-10-14] MEDS: oxyCODONE TAB* 5 MG TAB PO PRN (09:08)
[2017-10-14] MEDS: NS 0.9% 1000 ML* 1,000 ML IV SCH ×2 (11:29→22:56)
[2017-10-14] MEDS: ALPRAZolam TAB* 0.5 MG PO PRN (22:37)
[2017-10-15] MEDS: Magic M W2 Ben/Maal/Nyst/Lido* 240 ML MOUTHWASH (alt formulation) SWISH SPIT SCH ×4 (03:06→20:35)
[2017-10-15] MEDS: Piperacillin/Tazobac ADVAN(*) 3.375 GM in NS 0.9% 100 ML* 100 ML IVPB SCH ×3 (03:27→23:19)
[2017-10-15] MEDS: Vancomycin(*) 750 MG in NS 0.9% 250 ML* 250 ML IVPB SCH ×2 (04:11→13:07)
[2017-10-15] MEDS: Albuterol/Ipratropium NEB.SOL* Albuterol 2.5 MG/Ipratropium 0.5 MG 3 ML INH SCH ×6 (04:51→23:19)
[2017-10-15 06:05] LABS: ABS Basophils 0.1 10^3/ul (0-0.2); ABS Eosinophils 0.1 10^3/ul (0-0.6); ABS Lymphocytes 0.5 10^3/ul (1.0-4.8); ABS Monocytes 0.8 10^3/ul (0-0.8); ABS Neutrophils 9.4 10^3/ul (1.5-7.7); ABS Nucleated RBC 0 10^3/ul; Hematocrit 26 % (35-47); Hemoglobin 8.4 g/dl (12.0-16.0); Lymphocyte % 4.7 % (25-47); Mean Corpuscular HGB Conc 32 g/dl (31-36); Mean Corpuscular Hemoglobin 28 pg (27-31); Mean Corpuscular Volume 87 fL (80-97); Mean Platelet Volume 7.1 um3 (7.4-10.4); Nucleated Red Blood Cells % 0; Platelet Count 484 10^3/ul (150-450); Red Blood Count 3.03 10^6/ul (4.00-5.40); Red Cell Distribution Width 18 % (10.5-15); White Blood Count 10.9 10^3/ul (3.5-10.8)
[2017-10-15 06:21] LABS: EGFR Non-African American 24.3 (>60)
[2017-10-15] MEDS: Omeprazole CAP* 20 MG PO SCH (11:12)
[2017-10-15] MEDS: Cholecalciferol TAB* 1000 UNITS PO SCH (11:12)
[2017-10-15] MEDS: Citalopram TAB* 40 MG PO SCH (11:13)
[2017-10-15] MEDS: Enoxaparin(*) 100 MG/ML SYR SUBCUT SCH (11:13)
[2017-10-15] MEDS: Fluconazole 100 MG TAB* TAB PO SCH (11:13)
[2017-10-15] MEDS: Polyethylene Glycol 3350* 17 GM PACKET PO SCH (11:13)
[2017-10-15] MEDS: Vitamin B Complex TAB PO SCH (11:13)
[2017-10-15] MEDS ORDERED: Vancomycin Trough Check NOTE FOLLOW UP ONE (11:30)
--- NOTE | 2017-10-15 11:34 | RAD ---
Indication: Acute kidney failure. Real-time sonography of the kidneys was performed. Right kidney measures 13.4 x 5.7 x 5.9 cm. Mild caliectasis of the right kidney is noted. The left kidney measures 12.7 x 5.7 x 6.5 cm. Mild to moderate hydronephrosis is noted. There is a markedly distended urinary bladder measuring 2162 mL. IMPRESSION: Mild caliectasis right kidney. Mild to moderate hydronephrosis left kidney. Distended urinary bladder.
--- NOTE | 2017-10-15 12:50 | PN ---
Progress Note - Progress Note Date of Service: 10/14/17 SOAP: Subjective: [Some improvement today. More alert. Urine output dropped in last 24 hours. 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 She presented with persistent fevers and increased SOB after treatment for a PNA who was found to have a persistent infiltrate on CT and large R sided PE with associated RV strain. Hospital course complicated by new HCAP. Plan: [1. PE - not eligible for TPA due to craniotomy earlier this summer - RV strain with mild-mod RV dysfunction on echo - cont Lovenox, no bleeding episodes 2. PNA - L sided infiltrate noted on admission and new R sided infiltrate - Cont 3. ARF - noted rise in Cr, likely due to poor po intake - start IVF 4. NSCLC with brain mets - C1D1 pembrolizumab 09/25/17 - s/p decompressive craniotomy and whole brain XRT - neuro checks q 4h during 1st 48h of anticoagulation Dispo: plan to continue current care through the weekend with re-evaluation Monday for determination of Hospice v continued medical therapy]
--- NOTE | 2017-10-15 13:00 | PN ---
Progress Note - Progress Note Date of Service: 10/15/17 SOAP: Subjective: [Improved today. More alert. Up to commode and in chair this am. Cough improving. No fevers. Severe urinary retention noted on US today. Gant catheter in place, returned 2.3L] Objective: [ Laboratory Results - last 24 hr 10/15/17 10/15/17 10/15/17 05:24 05:24 11:13 WBC 10.9 H RBC 3.03 L Hgb 8.4 L Hct 26 L MCV 87 MCH 28 MCHC 32 RDW 18 H Plt Count 484 H D MPV 7.1 L Neut % (Auto) 86.8 H Lymph % (Auto) 4.7 L Clay % (Auto) 6.9 Eos % (Auto) 1.0 Baso % (Auto) 0.6 Absolute Neuts (auto) 9.4 H Absolute Lymphs (auto) 0.5 L Absolute Monos (auto) 0.8 Absolute Eos (auto) 0.1 Absolute Basos (auto) 0.1 Absolute Nucleated RBC 0 Nucleated RBC % 0 Sodium 142 Potassium 4.1 Chloride 111 Carbon Dioxide 22 Anion Gap 9 BUN 18 Creatinine 2.10 H Est GFR ( Amer) 29.4 Est GFR (Non-Af Amer) 24.3 BUN/Creatinine Ratio 8.6 Glucose 87 Calcium 8.3 L Total Bilirubin 0.40 AST 22 ALT 17 Alkaline Phosphatase 197 H Total Protein 4.5 L Albumin 1.9 L Globulin 2.6 Albumin/Globulin Ratio 0.7 L Vancomycin Trough 48.9 H* Acetaminophen (Tylenol Tab*) 650 mg PO Q4H PRN PRN Reason: FEVER/PAIN Last Admin: 10/12/17 17:07 Dose: 650 mg Albuterol (Ventolin Hfa Inhaler*) 2 puff INH Q6H PRN PRN Reason: SOB/WHEEZING Albuterol/Ipratropium (Duoneb (Albuterol 2.5 Mg/Ipratropium 0.5 Mg)) 1 neb INH [id number] AWAKE OPAL Last Admin: 10/15/17 11:37 Dose: 1 neb Alprazolam (Xanax Tab*) 1 mg PO TID PRN PRN Reason: ANXIETY Last Admin: 10/14/17 22:37 Dose: 1 mg Benzonatate (Tessalon Cap*) 100 mg PO TID PRN PRN Reason: COUGH Last Admin: 10/09/17 13:30 Dose: 100 mg Cholecalciferol (Vitamin D Tab*) 5,000 units PO DAILY [facility] Last Admin: 10/15/17 11:12 Dose: 5,000 units Citalopram Hydrobromide (Celexa Tab*) 40 mg PO DAILY [facility] Last Admin: 10/15/17 11:13 Dose: 40 mg Enoxaparin Sodium (Lovenox(*)) 100 mg SUBCUT DAILY [facility] Last Admin: 10/15/17 11:13 Dose: 100 mg Fluconazole (Diflucan 100 Mg Tab*) 100 mg PO DAILY [facility] Last Admin: 10/15/17 11:13 Dose: 100 mg Sodium Chloride (Ns 0.9% 1000 Ml*) 1,000 mls @ 125 mls/hr IV PER RATE [facility] Last Admin: 10/14/17 22:56 Dose: 125 mls/hr Piperacillin Sod/Tazobactam (Sod 3.375 gm/ Sodium Chloride) 100 mls @ 25 mls/ hr IVPB Q12H [facility] Morphine Sulfate (Morphine Oral Concentrate*) 5 mg SL Q2H PRN PRN Reason: pain or dyspnea Last Admin: 10/13/17 12:07 Dose: 5 mg Multi-Ingredient Mouthwash/Gargle (Magic M W2 Patrick/Maal/Nyst/Lido*) 10 ml SWISH SPIT Q6H [facility] Last Admin: 10/15/17 11:13 Dose: 10 ml Omeprazole (Prilosec Cap*) 40 mg PO DAILY@0730 [facility] Last Admin: 10/15/17 11:12 Dose: 40 mg Oxycodone HCl (Roxycodone Tab*) 5 mg PO Q6H PRN PRN Reason: PAIN - MODERATE TO SEVERE Last Admin: 10/14/17 09:08 Dose: 5 mg Pharmacy Consult (Zosyn Per Pharmacy*) 1 note FOLLOW UP .ZOSYN PER PHARMACY [facility] Pharmacy Consult (Vancomycin Per Pharmacy*) 1 note FOLLOW UP . PRN PRN Reason: PER PROTOCOL Polyethylene Glycol/Electrolytes (Miralax*) 17 gm PO DAILY [facility] Last Admin: 10/15/17 11:13 Dose: 17 gm Prochlorperazine (Compazine Tab*) 10 mg PO Q6H PRN PRN Reason: NAUSEA/VOMITING Last Admin: 10/12/17 17:06 Dose: 10 mg Temazepam (Restoril Cap*) 15 mg PO BEDTIME PRN PRN Reason: INSOMNIA Vitamin B Complex/Vitamin E (B Complex-50*) 1 tab PO DAILY [facility] Last Admin: 10/15/17 11:13 Dose: 1 tab Vital Signs: Temp Pulse Resp BP Pulse Ox 97.6 F 98 16 137/90 97 10/15/17 08:32 10/15/17 11:38 10/15/17 11:38 10/15/17 08:32 10/15/17 11:38 Objective: [Exam: Gen: Fatigued appearing 57 yo female in NAD, improved affect. 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 She presented with persistent fevers and increased SOB after treatment for a PNA who was found to have a persistent infiltrate on CT and large R sided PE with associated RV strain. Hospital course complicated by new HCAP. Plan: [1. PE - not eligible for TPA due to craniotomy earlier this summer - RV strain with mild-mod RV dysfunction on echo - cont Lovenox, no bleeding episodes 2. PNA - L sided infiltrate noted on admission and new R sided infiltrate - Started Vanco/Zosyn - vanco now at toxic levels with sudden decline in renal function which appears to be due to acute urinary retention 3. ARF - renal US today shows severe urinary retention, Gant catheter placed with 2.3L returned - patient has what sounds like some chronic retention - maintain Gant for 2-3d and then attempt voiding trial - if continued retention will require urology consultation - augusta plasencia cont to monitor Cr 3. NSCLC with brain mets - C1D1 pembrolizumab 09/25/17 - s/p decompressive craniotomy and whole brain XRT Dispo: significant clinical improvement over last 48h. Start PT to help with final dispo determination]
[2017-10-15] MEDS: NS 0.9% 1000 ML* 1,000 ML IV SCH ×2 (15:09→23:29)
[2017-10-15] MEDS: ALPRAZolam TAB* 0.5 MG PO PRN (15:19)
[2017-10-15] MEDS: oxyCODONE TAB* 5 MG TAB PO PRN (15:19)
[2017-10-16] MEDS: Magic M W2 Ben/Maal/Nyst/Lido* 240 ML MOUTHWASH (alt formulation) SWISH SPIT SCH ×4 (03:00→21:59)
[2017-10-16] MEDS: Albuterol/Ipratropium NEB.SOL* Albuterol 2.5 MG/Ipratropium 0.5 MG 3 ML INH SCH ×4 (03:33→20:12)
[2017-10-16] MEDS ORDERED: Vancomycin Random Level* NOTE FOLLOW UP ONE (06:00)
[2017-10-16 06:17] LABS: ABS Basophils 0.1 10^3/ul (0-0.2); ABS Eosinophils 0.2 10^3/ul (0-0.6); ABS Lymphocytes 0.4 10^3/ul (1.0-4.8); ABS Monocytes 0.7 10^3/ul (0-0.8); ABS Neutrophils 8.4 10^3/ul (1.5-7.7); ABS Nucleated RBC 0 10^3/ul; Eosinophil % 2.1 % (0-6); Hematocrit 25 % (35-47); Hemoglobin 8.1 g/dl (12.0-16.0); Lymphocyte % 4.5 % (25-47); Mean Corpuscular HGB Conc 32 g/dl (31-36); Mean Corpuscular Hemoglobin 28 pg (27-31); Mean Corpuscular Volume 87 fL (80-97); Mean Platelet Volume 7.1 um3 (7.4-10.4); Nucleated Red Blood Cells % 0; Platelet Count 456 10^3/ul (150-450); Red Blood Count 2.91 10^6/ul (4.00-5.40); Red Cell Distribution Width 18 % (10.5-15); White Blood Count 9.9 10^3/ul (3.5-10.8)
[2017-10-16 06:41] LABS: EGFR Non-African American 21.6 (>60)
[2017-10-16] MEDS: Polyethylene Glycol 3350* 17 GM PACKET PO SCH (07:57)
[2017-10-16] MEDS: Enoxaparin(*) 100 MG/ML SYR SUBCUT SCH (07:58)
[2017-10-16] MEDS: Fluconazole 100 MG TAB* TAB PO SCH (07:59)
[2017-10-16] MEDS: Omeprazole CAP* 20 MG PO SCH (07:59)
[2017-10-16] MEDS: Cholecalciferol TAB* 1000 UNITS PO SCH (07:59)
[2017-10-16] MEDS: Vitamin B Complex TAB PO SCH (07:59)
[2017-10-16] MEDS: Citalopram TAB* 40 MG PO SCH (07:59)
--- NOTE | 2017-10-16 09:57 | PN ---
Progress Note - Progress Note Date of Service: 10/16/17 SOAP: Subjective: very sleepy this am but reports she was up all day yesterday with guests and then did not sleep well last night. globally weak and does not want to do PT/ OT yet this am. last BM this morning. Objective: Vital Signs Temp Pulse Resp BP Pulse Ox 98.3 F 97 16 107/54 96 10/16/17 07:22 10/16/17 07:22 10/16/17 08:00 10/16/17 07:22 10/16/17 07:22 lying flat in bed in nad perr eomi op mild thrush, dry dense rhonchi on right s1 s2 nl soft nt+Bs no le edema globally weak, 3/5 strength BL LE hip flexors A+O x3, slow speech but coherent Laboratory Results - last 24 hr 10/15/17 10/16/17 10/16/17 11:13 05:45 05:45 WBC 9.9 RBC 2.91 L Hgb 8.1 L Hct 25 L MCV 87 MCH 28 MCHC 32 RDW 18 H Plt Count 456 H MPV 7.1 L Neut % (Auto) 84.7 H Lymph % (Auto) 4.5 L [place] % (Auto) 7.5 H Eos % (Auto) 2.1 Baso % (Auto) 1.2 Absolute Neuts (auto) 8.4 H Absolute Lymphs (auto) 0.4 L Absolute Monos (auto) 0.7 Absolute Eos (auto) 0.2 Absolute Basos (auto) 0.1 Absolute Nucleated RBC 0 Nucleated RBC % 0 Sodium 141 Potassium 3.5 Chloride 113 H Carbon Dioxide 20 L Anion Gap 8 BUN 20 Creatinine 2.32 H Est GFR ( Amer) 26.2 Est GFR (Non-Af Amer) 21.6 BUN/Creatinine Ratio 8.6 Glucose 86 Calcium 8.0 L Total Bilirubin 0.30 AST 23 ALT 18 Alkaline Phosphatase 171 H Total Protein 4.7 L Albumin 2.0 L Globulin 2.7 Albumin/Globulin Ratio 0.7 L Vancomycin Trough 48.9 H* Random Vancomycin 37.4 Acetaminophen (Tylenol Tab*) 650 mg PO Q4H PRN PRN Reason: FEVER/PAIN Last Admin: 10/12/17 17:07 Dose: 650 mg Albuterol (Ventolin Hfa Inhaler*) 2 puff INH Q6H PRN PRN Reason: SOB/WHEEZING Albuterol/Ipratropium (Duoneb (Albuterol 2.5 Mg/Ipratropium 0.5 Mg)) 1 neb INH [id number] AWAKE [facility] Last Admin: 10/16/17 07:08 Dose: 1 neb Alprazolam (Xanax Tab*) 1 mg PO TID PRN PRN Reason: ANXIETY Last Admin: 10/15/17 15:19 Dose: 1 mg Benzonatate (Tessalon Cap*) 100 mg PO TID PRN PRN Reason: COUGH Last Admin: 10/09/17 13:30 Dose: 100 mg Cholecalciferol (Vitamin D Tab*) 5,000 units PO DAILY [facility] Last Admin: 10/16/17 07:59 Dose: Not Given Citalopram Hydrobromide (Celexa Tab*) 40 mg PO DAILY [facility] Last Admin: 10/16/17 07:59 Dose: 40 mg Fluconazole (Diflucan 100 Mg Tab*) 100 mg PO Q48HR [facility] Sodium Chloride (Ns 0.9% 1000 Ml*) 1,000 mls @ 125 mls/hr IV PER RATE [facility] Last Admin: 10/15/17 23:29 Dose: 125 mls/hr Piperacillin Sod/Tazobactam (Sod 3.375 gm/ Sodium Chloride) 100 mls @ 25 mls/ hr IVPB Q12H [facility] Last Admin: 10/15/17 23:19 Dose: 25 mls/hr Morphine Sulfate (Morphine Oral Concentrate*) 5 mg SL Q2H PRN PRN Reason: pain or dyspnea Last Admin: 10/13/17 12:07 Dose: 5 mg Multi-Ingredient Mouthwash/Gargle (Magic M W2 Patrick/Maal/Nyst/Lido*) 10 ml SWISH SPIT Q6H [facility] Last Admin: 10/16/17 07:58 Dose: Not Given Omeprazole (Prilosec Cap*) 40 mg PO DAILY@0730 [facility] Last Admin: 10/16/17 07:59 Dose: 40 mg Oxycodone HCl (Roxycodone Tab*) 5 mg PO Q6H PRN PRN Reason: PAIN - MODERATE TO SEVERE Last Admin: 10/15/17 15:19 Dose: 5 mg Pharmacy Consult (Zosyn Per Pharmacy*) 1 note FOLLOW UP .ZOSYN PER PHARMACY [facility] Pharmacy Consult (Vancomycin Per Pharmacy*) 1 note FOLLOW UP . PRN PRN Reason: PER PROTOCOL Polyethylene Glycol/Electrolytes (Miralax*) 17 gm PO DAILY [facility] Last Admin: 10/16/17 07:57 Dose: Not Given Prochlorperazine (Compazine Tab*) 10 mg PO Q6H PRN PRN Reason: NAUSEA/VOMITING Last Admin: 10/12/17 17:06 Dose: 10 mg Temazepam (Restoril Cap*) 15 mg PO BEDTIME PRN PRN Reason: INSOMNIA Vitamin B Complex/Vitamin E (B Complex-50*) 1 tab PO DAILY [facility] Last Admin: 10/16/17 07:59 Dose: 1 tab Assessment: 57 yo F w remote BCA, now with metastatic lung CA to brain p/w PE and course c/ b health care associated PNA and new urinary retention with ARF. Plan: Urinary retention: unclear etiology. known metastatic disease to brain, unusual to cause urinary retention. PET in late August without any bony disease. will get noncon scan of brain, thoracic and lumbar spines to rule out any obvious bony disease. can not get contrast with ARF. also on ddx would be narcotic induced PNA: cont zosyn, vanco should be therapeutic for days with ARF PE: got lovenox this am. will hold pending creatinine tomorrow and likely start heparin drip tomorrow evening ARF: likely related to obstructive uropathy, but now will have some degree of vancomycin toxicity as well bray in place monitor UO cont hydration thrush: dec fluconazole dosing to QOD deconditioning: cont to work with PT/OT scans as above
[2017-10-16] MEDS ORDERED: Fluconazole 100 MG TAB* TAB PO SCH (10:00)
[2017-10-16] MEDS: Piperacillin/Tazobac ADVAN(*) 3.375 GM in NS 0.9% 100 ML* 100 ML IVPB SCH ×2 (10:34→22:00)
[2017-10-16] MEDS: Acetaminophen TAB* 325 MG PO PRN (12:53)
[2017-10-16] MEDS: ALPRAZolam TAB* 0.5 MG PO PRN (14:01)
--- NOTE | 2017-10-16 16:05 | RAD ---
Indication: Lung carcinoma with known metastasis. Urinary retention. Comparison: October 10, 2017 MRI. Technique: Noncontrast CT vertex of skull through foramen magnum. Report: Postsurgical change of RIGHT occipital craniotomy. Post recent excision encephalomalacia at the RIGHT cerebellar hemisphere. Unremarkable cerebral sulci. Patent basal cisterns. Negative for hydrocephalus. Small volume of fat within the anterior dependent portion of the frontal horn of the RIGHT lateral ventricle similar to the prior MRI. No new intra or extra-axial lesions evident within limits of noncontrast CT. Negative for intra or extra-axial hemorrhage. No suspicious calvarial or skull base lesions evident. Unremarkable orbital contents and scalp. IMPRESSION: #. Postsurgical change of RIGHT occipital craniotomy. Post recent excision encephalomalacia at the RIGHT cerebellar hemisphere. #. No new intra or extra-axial lesions evident within limits of noncontrast CT.
--- NOTE | 2017-10-16 16:13 | RAD ---
Indication: Lung carcinoma with known metastasis and urinary retention. CT of the lumbar spine was obtained in the axial plane. Sagittal and coronal reconstructed images were obtained. The sacrum is unremarkable with no evidence of fracture. There is mild compression of the superior endplate of L1 vertebra with mixed sclerotic and lytic areas. No obvious retropulsed fragment is noted in the spinal canal at the level of the L1 vertebra. The remainder of the vertebral bodies demonstrate osteopenia with no decrease in height or compression fracture. No obvious soft tissue masses are noted within the spinal canal.. Additionally there is mixed sclerotic and lytic areas of multiple facet joints which is likely due to degeneration. No associated soft tissue masses are noted. There is mild levoscoliosis noted. IMPRESSION: There is mild compression of the superior endplate of L1 with mixed sclerotic and lytic areas. No obvious retropulsed fragment is noted. Diffuse osteopenia is noted. No soft tissue mass extending into the spinal canal is noted.
--- NOTE | 2017-10-16 16:14 | RAD ---
Indication: Lung carcinoma. Urinary retention. Metastatic breast carcinoma. Comparison: October 12, 2017 CT thorax. October 05, 2017 CT thorax. Technique: Noncontrast CT thoracic spine. Multiplanar reformation. Report: Moderate dependent RIGHT and small dependent LEFT pleural effusions with interval increase compared with the recent exam. Proportional RIGHT greater than LEFT lung atelectasis. Consolidation at the lung bases is greater than expected given the pleural effusions. Consider other etiologies for alveolar consolidation primarily pneumonia or given the clinical setting lymphangitic carcinoma. 3.6 x 3.5 cm RIGHT perihilar mass is grossly unchanged. Unchanged mediastinal lymphadenopathy with 1.7 cm short axis RIGHT paratracheal and 2.0 cm subcarinal lymph nodes. Cholelithiasis noted at the upper abdomen. No suspicious focal osseous lesions evident. Bone density appears decreased throughout. Anterior and middle column probable osteoporotic compression fracture at L1 is unchanged compared with the October 05, 2017 exam. Based on conspicuous trabecular impaction the fracture appears subacute. Negative for significant resulting spinal stenosis. Negative for thoracic spine fractures. Multilevel predominant mild thoracic degenerative spondylosis. IMPRESSION: #. Increased RIGHT larger than LEFT pleural effusions. #. Consolidation at the lung bases is greater than expected given the pleural effusions. Consider other etiologies for alveolar consolidation primarily pneumonia or given the clinical setting lymphangitic carcinoma. #. 3.6 x 3.5 cm RIGHT perihilar pulmonary mass is grossly unchanged. #. Unchanged mediastinal lymphadenopathy. #. No suspicious focal thoracic osseous lesions or thoracic spine fractures. #. Subacute L1 anterior and middle column fracture without significant compromise of the central canal or interval change compared with the October 05, 2017 CT.
[2017-10-16] MEDS: NS 0.9% 1000 ML* 1,000 ML IV SCH (16:54)
[2017-10-17] MEDS: Albuterol/Ipratropium NEB.SOL* Albuterol 2.5 MG/Ipratropium 0.5 MG 3 ML INH SCH ×4 (01:50→20:29)
[2017-10-17] MEDS: Magic M W2 Ben/Maal/Nyst/Lido* 240 ML MOUTHWASH (alt formulation) SWISH SPIT SCH ×4 (03:00→22:28)
[2017-10-17] MEDS: ALPRAZolam TAB* 0.5 MG PO PRN (03:14)
[2017-10-17 05:56] LABS: ABS Basophils 0.1 10^3/ul (0-0.2); ABS Eosinophils 0.2 10^3/ul (0-0.6); ABS Lymphocytes 0.4 10^3/ul (1.0-4.8); ABS Monocytes 0.6 10^3/ul (0-0.8); ABS Neutrophils 7.9 10^3/ul (1.5-7.7); ABS Nucleated RBC 0 10^3/ul; Eosinophil % 2.4 % (0-6); Hematocrit 27 % (35-47); Hemoglobin 8.5 g/dl (12.0-16.0); Lymphocyte % 4.2 % (25-47); Mean Corpuscular HGB Conc 31 g/dl (31-36); Mean Corpuscular Hemoglobin 27 pg (27-31); Mean Corpuscular Volume 86 fL (80-97); Mean Platelet Volume 7.2 um3 (7.4-10.4); Nucleated Red Blood Cells % 0.1; Platelet Count 469 10^3/ul (150-450); Red Blood Count 3.17 10^6/ul (4.00-5.40); Red Cell Distribution Width 17 % (10.5-15); White Blood Count 9.1 10^3/ul (3.5-10.8)
[2017-10-17 06:25] LABS: EGFR Non-African American 21.5 (>60)
[2017-10-17] MEDS: Omeprazole CAP* 20 MG PO SCH (08:55)
[2017-10-17] MEDS: Cholecalciferol TAB* 1000 UNITS PO SCH (08:55)
[2017-10-17] MEDS: Citalopram TAB* 40 MG PO SCH (08:56)
[2017-10-17] MEDS: Polyethylene Glycol 3350* 17 GM PACKET PO SCH (08:56)
[2017-10-17] MEDS: Vitamin B Complex TAB PO SCH (08:56)
[2017-10-17] MEDS: Morphine ORAL CONCENTRATE* 5 MG/0.25 ML ORAL.SYRIN SL PRN ×2 (09:00→17:36)
[2017-10-17] MEDS ORDERED: Fluconazole 100 MG TAB* TAB PO SCH (09:00)
[2017-10-17] MEDS ORDERED: Furosemide IV* 10 MG/ML VIAL (40 MG) IV SLOW PU ONE (09:01)
--- NOTE | 2017-10-17 09:07 | PN ---
Progress Note - Progress Note Date of Service: 10/17/17 SOAP: Subjective: []Increased difficulty breathing this AM. Positive fluid balance with attempt at flushing kidneys. Denies pain. Best friend at bedside, very supportive. Medications: Acetaminophen (Tylenol Tab*) 650 mg PO Q4H PRN PRN Reason: FEVER/PAIN Last Admin: 10/16/17 12:53 Dose: 650 mg Albuterol (Ventolin Hfa Inhaler*) 2 puff INH Q6H PRN PRN Reason: SOB/WHEEZING Albuterol/Ipratropium (Duoneb (Albuterol 2.5 Mg/Ipratropium 0.5 Mg)) 1 neb INH [id number] AWAKE [facility] Last Admin: 10/17/17 08:07 Dose: 1 neb Alprazolam (Xanax Tab*) 1 mg PO TID PRN PRN Reason: ANXIETY Last Admin: 10/17/17 03:14 Dose: 1 mg Benzonatate (Tessalon Cap*) 100 mg PO TID PRN PRN Reason: COUGH Last Admin: 10/09/17 13:30 Dose: 100 mg Cholecalciferol (Vitamin D Tab*) 5,000 units PO DAILY [facility] Last Admin: 10/17/17 08:55 Dose: Not Given Citalopram Hydrobromide (Celexa Tab*) 40 mg PO DAILY [facility] Last Admin: 10/17/17 08:56 Dose: Not Given Fluconazole (Diflucan 100 Mg Tab*) 100 mg PO Q48HR [facility] Last Admin: 10/17/17 08:56 Dose: Not Given Furosemide (Lasix Iv*) 80 mg IV SLOW PU ONCE ONE Stop: 10/17/17 09:02 Sodium Chloride (Ns 0.9% 1000 Ml*) 1,000 mls @ 125 mls/hr IV PER RATE [facility] Last Admin: 10/16/17 16:54 Dose: 125 mls/hr Piperacillin Sod/Tazobactam (Sod 3.375 gm/ Sodium Chloride) 100 mls @ 25 mls/ hr IVPB Q12H [facility] Last Admin: 10/16/17 22:00 Dose: 25 mls/hr Morphine Sulfate (Morphine Oral Concentrate*) 5 mg SL Q2H PRN PRN Reason: pain or dyspnea Last Admin: 10/17/17 09:00 Dose: 5 mg Multi-Ingredient Mouthwash/Gargle (Magic M W2 [place]/Maal/Nyst/Lido*) 10 ml SWISH SPIT Q6H [facility] Last Admin: 10/17/17 08:56 Dose: Not Given Omeprazole (Prilosec Cap*) 40 mg PO DAILY@0730 [facility] Last Admin: 10/17/17 08:55 Dose: Not Given Oxycodone HCl (Roxycodone Tab*) 5 mg PO Q6H PRN PRN Reason: PAIN - MODERATE TO SEVERE Last Admin: 10/15/17 15:19 Dose: 5 mg Pharmacy Consult (Zosyn Per Pharmacy*) 1 note FOLLOW UP .ZOSYN PER PHARMACY [facility] Pharmacy Consult (Vancomycin Per Pharmacy*) 1 note FOLLOW UP . PRN PRN Reason: PER PROTOCOL Polyethylene Glycol/Electrolytes (Miralax*) 17 gm PO DAILY [facility] Last Admin: 10/17/17 08:56 Dose: Not Given Prochlorperazine (Compazine Tab*) 10 mg PO Q6H PRN PRN Reason: NAUSEA/VOMITING Last Admin: 10/12/17 17:06 Dose: 10 mg Temazepam (Restoril Cap*) 15 mg PO BEDTIME PRN PRN Reason: INSOMNIA Vitamin B Complex/Vitamin E (B Complex-50*) 1 tab PO DAILY [facility] Last Admin: 10/17/17 08:56 Dose: Not Given Objective: [] Vital Signs Temp Pulse Resp BP Pulse Ox 97.7 F 92 32 133/66 96 10/17/17 07:39 10/17/17 08:04 10/17/17 09:00 10/17/17 07:39 10/17/17 08:04 A&Ox3, EOMI, communicating needs through mumbled speech pattern HRR, S1S2 LS dim. bilat. R>L Laboratory Results - last 24 hr 10/17/17 10/17/17 05:45 05:45 WBC 9.1 RBC 3.17 L Hgb 8.5 L Hct 27 L MCV 86 MCH 27 MCHC 31 RDW 17 H Plt Count 469 H MPV 7.2 L Neut % (Auto) 86.1 H Lymph % (Auto) 4.2 L [place] % (Auto) 6.6 Eos % (Auto) 2.4 Baso % (Auto) 0.7 Absolute Neuts (auto) 7.9 H Absolute Lymphs (auto) 0.4 L Absolute Monos (auto) 0.6 Absolute Eos (auto) 0.2 Absolute Basos (auto) 0.1 Absolute Nucleated RBC 0 Nucleated RBC % 0.1 Sodium 143 Potassium 3.6 Chloride 114 H Carbon Dioxide 18 L Anion Gap 11 BUN 21 Creatinine 2.33 H Est GFR ( Amer) 26.1 Est GFR (Non-Af Amer) 21.5 BUN/Creatinine Ratio 9.0 Glucose 77 Calcium 8.1 L Total Bilirubin 0.30 AST 32 ALT 22 Alkaline Phosphatase 201 H Total Protein 4.4 L Albumin 1.8 L Globulin 2.6 Albumin/Globulin Ratio 0.7 L Prealbumin 6 L Assessment: []57 yo female with end stage NSCLC admitted with new PE and Left upper lobe PNA with course complicated by second PNA on right while on abx. Review of imaging without obvious PNA in right on admission, though known mass present, therefore appears to be a healthcare acquired PNA. Difficult to determine source though high risk for MRSA as this appears to have developed through Zosyn. While she initially appeared to improve with addition of Vancomycin she developed new onset urinary retention with subsequent BERE. Unfortunately this AM she has increased respiratory discomfort appearing to be in fluid overload without improvement in Cr. At the end of last week she discussed attempting to tx. acute PNA through weekend and once improved going to hospice, however I am concerned that further aggressive approaches would be futile with underlying degree of disease and severe protein caloric malnutrition; I have recommended she consider comfort measures only. Her prognosis at this time is likely 3 mo. at most and she agreed to comfort measures only. Plan: []Transition to comfort measures only, plan d/c to hospice residence in AM per her request (reviewed with Dr. Michel) and she will discuss with her children
[2017-10-17] MEDS: Piperacillin/Tazobac ADVAN(*) 3.375 GM in NS 0.9% 100 ML* 100 ML IVPB SCH (10:38)
[2017-10-17] MEDS ORDERED: Vancomycin Random Level* NOTE FOLLOW UP ONE (11:00)
--- NOTE | 2017-10-17 11:30 | RAD ---
INDICATION: Pneumonia COMPARISON: Most recent comparison chest x-rays dated October 10, 2017 TECHNIQUE: Single AP portable view of the chest was obtained. FINDINGS: Image quality is compromised due to the relative inferiority of a portable chest x-ray. Again seen are surgical clips overlying the right axilla. The heart and mediastinum exhibit normal size and contour. Again seen are patchy densities overlying the bilateral lungs with slight worsening in aeration relative to the most recent chest x-ray. There is blunting of the bilateral costophrenic angles indicating the presence of small pleural effusions. Visualized bones are normal for the patient's age. IMPRESSION: Again seen are patchy densities overlying the bilateral lungs and a small degree of bilateral costophrenic angle blunting. This constellation of findings could be seen in the setting of pulmonary edema or multifocal pneumonia. Overall the degree of aeration is slightly worse when compared to the October 10, 2017 chest x-ray.
[2017-10-17] MEDS ORDERED: Polyethylene Glycol 3350* 17 GM PACKET PO PRN (11:32)
[2017-10-18] MEDS: Albuterol/Ipratropium NEB.SOL* Albuterol 2.5 MG/Ipratropium 0.5 MG 3 ML INH SCH ×2 (01:41→07:40)
[2017-10-18] MEDS: ALPRAZolam TAB* 0.5 MG PO PRN (02:16)
[2017-10-18] MEDS: Magic M W2 Ben/Maal/Nyst/Lido* 240 ML MOUTHWASH (alt formulation) SWISH SPIT SCH (02:16)
[2017-10-18 07:21] VITALS: BP 162/60
[2017-10-18] MEDS: Omeprazole CAP* 20 MG PO SCH (07:45)
--- NOTE | 2017-10-18 08:10 | DS ---
- Discharge Summary Admission Date: 10/05/17 Discharge Date: 10/18/2017 Discharge Diagnosis: 1. Metastatic Lung Cancer: no further treatment, transition to hospice 2. Bilat. PNA: no further abx. per pt. preference, see hosp. course below 3. Acute Kidney Injury: 2/2 acute urinary retention, unfortunately no improvement with bray and hydration and subsequent fluid overload, decision to stop further hydration and transition to hospice 4. Severe Protein Caloric Malnutrition: end stage cancer, transition to hospice Discharge Medications: Medication Instructions Recorded Confirmed Type Escitalopram (NF) [Lexapro 20 mg 20 mg PO DAILY 06/28/17 10/05/17 History (NF)] Albuterol HFA INHALER* [Ventolin 2 puff INH Q6H PRN mdi 07/28/17 10/05/17 Rx HFA Inhaler*] ALPRAZolam TAB* [Xanax TAB*] 0.5 - 1 mg PO Q4H PRN #60 tab MDD 10/18/17 Rx 12 tabs Acetaminophen TAB* [Tylenol TAB*] 650 mg PO Q4H PRN tab 10/18/17 Rx Benzonatate CAP* [Tessalon 100 MG 100 mg PO TID PRN #30 cap 10/18/17 Rx CAP*] Citalopram TAB* [Celexa TAB*] 40 mg PO DAILY #5 tab 10/18/17 Rx Magic M W2 Patrick/Maal/Nyst/Lido* 10 ml SWISH SPIT Q6H #200 ml 10/18/17 Rx Morphine ORAL CONCENTRATE* 5 mg SL Q2H PRN #30 oral.syrin MDD 10/18/17 Rx 12 doses Polyethylene Glycol 3350* 17 gm PO DAILY PRN #0 packet 10/18/17 Rx [Miralax*] Prochlorperazine TAB* [Compazine 10 mg PO Q6H PRN #40 tab 10/18/17 Rx Tab*] Temazepam CAP* [Restoril CAP*] 15 mg PO BEDTIME PRN #5 cap MDD 15 10/18/17 Rx mg Hospital Course: Please see admission note for full H&P, however briefly, Mrs. Hurst was recently diagnosed with metastatic NSCLC, PDL+, with mets to the [employer] now s/p craniotomy. She presented on 10/05 following Cycle 1 of Pembroluzimab with severe weakness. In the ER she was found to be hypoxic and was admitted with CT revealing a Left upper lobe PNA and large PE near her known right lung mass. Due to her recent craniotomy she was not considered a candidate for TPA. She was started on heparin gtt. and Zosyn. On 10/08 she was transitioned to Lovenox with plan for director long term care anti-coagulation. On 10/10 she complained of visual hallucinations and an MRI of the brain was obtained, fortunately this did not show any progressive disease. A Chest X-ray was ordered the same day as she remained very weak with continued low oxygen SATs. This revealed concerning right infiltrate, however she had been receiving continued fluids and therefore it was felt to be fluid overload and the fluids were discontinued. By 10/12 she had developed leukocytosis and a repeat CT of the chest was obtained revealing a true right lower lobe pneumonia. As this appeared to have developed during her admission (review of CT on admission did not show right lower lobe infiltrates) it was felt to be a potential MRSA healthcare acquired PNA (as she was actively on Zosyn) and was started on Vancomycin. At the same time Mrs. Hurst asked very appropriate questions regarding her prognosis and discussion was had regarding treatment of her acute illness and then re- evaluating her cancer treatment. A palliative consult was ordered and performed on 10/13. The same day her primary oncologist, Dr. Lombardo, and her discussed pursing treatment through the weekend and if no improvement transitioning to hospice. Initially she appeared to improve dramatically, however on 10/15 she had developed acute urinary retention with associated acute kidney injury and Vanco toxicity. A renal US that day was negative. The vancomycin was discontinued and fluids were initiated. The following day CTs of the thoracis and lumbar spine, as well as the brain, were negative for central cause of the urinary retention. Her Lovenox was held due to her renal function with plan to consider heparin drip the following evening depending on further labs. By 10/17 she was notably in fluid overload and a Chest x-ray revealed continued RUL infiltrate; her Cr had not improved despite fluids and her pre-albumin confirmed severe malnutrition. Discussion of stopping all treatment and pursuing hospice was had and Mrs. Hurst agreed that she wanted to focus on comfort measures only. Today she is being discharged to the hospice residence were I suspect she has months at most. She is being discharged off all antibiotics and anti-coagulants. She will not require any further follow-up. All questions were answered and she is in agreement with current plan of care. >40 min spent with >50% face to face counseling
== END 2017-10-18 09:40 | disposition hospice, home (50) | DRG 177 ==
LOC: ED 16:53 → MEDTELE 22:12
PROVIDERS: ADMIT Internal Medicine; ATTEND Internal Medicine Hematology & Oncology
DX: J15.212 Pneumonia due to Methicillin resistant Staphylococcus aureus (principal); I26.99 Other pulmonary embolism without acute cor pulmonale; E43 Unspecified severe protein-calorie malnutrition; C78.01 Secondary malignant neoplasm of right lung; B37.9 Candidiasis, unspecified; C79.31 Secondary malignant neoplasm of brain; J44.0 Chronic obstructive pulmonary disease with (acute) lower respiratory infection; N17.9 Acute kidney failure, unspecified; Z51.5 Encounter for palliative care; R33.9 Retention of urine, unspecified; E87.6 Hypokalemia; M81.0 Age-related osteoporosis without current pathological fracture; Z66 Do not resuscitate; F41.9 Anxiety disorder, unspecified; F32.9 Major depressive disorder, single episode, unspecified; D64.9 Anemia, unspecified; Z68.26 Body mass index [BMI] 26.0-26.9, adult; Z80.3 Family history of malignant neoplasm of breast; Z80.8 Family history of malignant neoplasm of other organs or systems; Z88.5 Allergy status to narcotic agent; Z85.3 Personal history of malignant neoplasm of breast; Z90.13 Acquired absence of bilateral breasts and nipples; Z87.891 Personal history of nicotine dependence
CPT/HCPCS: 36415; 70450; 70553; 71045; 71046; 71260; 71275; 72128; 72131; 76775; 80048; 80053; 80202; 81003; 81015; 82550; 82565; 82803; 83605; 83735; 83880; 84134; 84484; 84520; 85025; 85610; 85730; 86850; 86900; 86901; 86922; 87040; 87070; 87086; 87205; 87899; 93005; 93306; 94640; 99232; 99233; 99283; A9270-GY; A9579; G8978-GP-CL; G8979-GP-CI; G8987-GO-CM; G8988-GO-CJ; J1644; J1650; J1940; J2543; J3370; J3475; J3480; P9040; Q0164; Q9967